=== PATIENT | female | born 1945 | race Caucasian/White ===

== ENCOUNTER → 2016-09-06 | Outpatient (CLI) | payer BC ==
[~2016-09-06] MED LIST: BND25X PO; CETI10TA10 PO; CHOL2000 PO; CLR10 PO; FLUT0.15 NAE; LRT5 PO; MAGN250T8 PO
--- NOTE | 2016-09-06 17:04 | DIAGNOSTIC IMAGING REPORT ---
CHEST 2 VIEWS ROUTINE CLINICAL HISTORY: J18.1 dyspnea COMPARISON STUDY: No previous studies for comparison. FINDINGS: Mild prominence of the bronchovascular markings. Diaphragms are smooth. No consolidative infiltrates. IMPRESSION: Bronchitis versus pulmonary vascular congestion Electronically signed by: Yeison Sharpe M.D. 09/06/2016 5:03 PM Dictated Date/Time: 09/06/2016 5:02 PM
== END | disposition home or self-care (01) ==
LOC: C.RAD1850 16:51
PROVIDERS: ATTEND Family Medicine
DX: J18.1 Lobar pneumonia, unspecified organism (principal)

== ENCOUNTER → 2016-10-15 | Outpatient (CLI) | payer BC ==
[~2016-10-15] MED LIST changes: +DIPH25CA65 PO
--- NOTE | 2016-10-15 16:46 | MAMMOGRAPHY REPORT ---
THIS REPORT HAS BEEN AMENDED. BILATERAL DIGITAL SCREENING MAMMOGRAM WITH CAD: 10/15/2016 CLINICAL HISTORY: Routine screening. Patient has no complaints. TECHNIQUE: Bilateral CC and MLO views were obtained. Current study was also evaluated with a Comput er Aided Detection (CAD) system. COMPARISON: No prior exams were available for comparison. BREAST COMPOSITION: There are scattered areas of fibroglandular density in both breasts. FINDINGS: There are minimal vascular calcifications in the breasts. A few scattered benign-appearin g punctate and coarse calcifications. No suspicious mass, architectural distortion or cluster of rincon spicious microcalcifications is seen. IMPRESSION: ACR BI-RADS CATEGORY 1: NEGATIVE There is no mammographic evidence of malignancy. Prior outside mammograms are currently being reque sted and if obtained they will be reviewed, compared to the current exam to assess for any more subt le changes, and an addendum will be made to this report. Otherwise, a 1 year screening mammogram is recommended. The patient will receive written notification of the results. Approximately 10% of breast cancers are not detected with mammography. A negative mammographic repor t should not delay biopsy if a clinically suggestive mass is present. Marika Karimi M.D. ay/:10/15/2016 15:55:41 Learning Support Aide: Evelia CAMPBELL(Jeri)(Jodi), [facility] letter sent: Normal 07/08 BI-RADS Code: ACR BI-RADS Category 1: Negative AMENDMENT: 10/16/2016 Marika Karimi M.D. Prior outside mammograms from [facility] dated 12/19/2009 and 12/21/2010 became available for review. There has been no significant interval change compared to the prior outside mammograms. There are mild bilateral vascular calcifications and benign-appearing calcifications in the right breast. Re commend follow-up in 1 year for next annual screening mammogram. Amended BI-RADS: ACR BI-RADS Category 2: Benign letter sent: Normal 2
== END | disposition home or self-care (01) ==
LOC: C.MAMM 13:23
PROVIDERS: ATTEND Family Medicine
DX: Z12.31 Encounter for screening mammogram for malignant neoplasm of breast (principal); M81.0 Age-related osteoporosis without current pathological fracture

== ENCOUNTER → 2016-10-26 | Outpatient (CLI) | payer BC ==
--- NOTE | 2016-10-26 14:41 | DIAGNOSTIC IMAGING REPORT ---
CHEST 2 VIEWS ROUTINE CLINICAL HISTORY: Pneumonia COMPARISON STUDY: 09/06/2016 FINDINGS: The heart is normal in size. There are bilateral interstitial pulmonary opacities similar to the preceding study. An element of chronic interstitial lung disease is suspected. There are no pleural effusions.[ IMPRESSION: Bilateral interstitial pulmonary opacities, similar to the preceding study. Electronically signed by: Aiden Doyle M.D. 10/26/2016 2:38 PM Dictated Date/Time: 10/26/2016 2:37 PM
== END | disposition home or self-care (01) ==
LOC: C.RAD 14:21
PROVIDERS: ATTEND Family Medicine
DX: R06.02 Shortness of breath (principal)

== ENCOUNTER → 2016-10-31 | Outpatient (CLI) | payer BC ==
--- NOTE | 2016-11-04 16:27 | PULMONARY FUNCTION TEST ---
CLINICAL DATA: A 71-year-old female with a height of 62 inches and a weight of 226 pounds referred for shortness of breath. Spirometry pre- and post-bronchodilator were performed. Prebronchodilator spirometry demonstrates mild restrictive changes. FVC was 66% of predicted. FEV1 was 72% of predicted. [id number] was 140% of predicted. There was no significant improvement after inhaled bronchodilator. IMPRESSION: Mild restrictive disease, question secondary to the patient's weight, with no significant improvement after inhaled bronchodilator. MTDD
== END | disposition home or self-care (01) ==
LOC: C.RC 13:27
PROVIDERS: ATTEND Family Medicine
DX: R06.02 Shortness of breath (principal)

== ENCOUNTER 2017-01-16 22:02 | Observation (INO) | payer BC ==
[~2017-01-16] VITALS: Ht 160 cm; Wt 104.2 kg
[~2017-01-16 22:02] MED LIST changes: -CETI10TA10 PO; -CHOL2000 PO; -DIPH25CA65 PO; -FLUT0.15 NAE; -MAGN250T8 PO
[2017-01-16] MEDS ORDERED: FLUT0.15 NAE (23:07)
[2017-01-16] MEDS ORDERED: MAGN250T8 PO (23:09)
[2017-01-16] MEDS ORDERED: CHOL2000 PO (23:09)
[2017-01-16] MEDS ORDERED: CETI10TA10 PO (23:11)
[2017-01-16] MEDS ORDERED: SODIUM CHLORIDE 0.9% 1000ML 1,000 ML IV STA (23:26)
[2017-01-16 23:27] LABS: BASO % 0.3 %; BASO ABS # 0.02 K/uL (0-0.2); COMPLETE YES; EOS % 3.2 %; HEMATOCRIT 45.5 % (37-47); IG% 0.3 %; LYMPH % 25.5 %; MEAN CELL VOLUME 92.1 fL (80-100); MEAN CORPUSCULAR HEMOGLOBIN 30.4 pg (25-34); MEAN PLATELET VOLUME 9.9 fL (7.4-10.4); MONO % 7.7 %; PLATELET COUNT 197 K/uL (130-400); RED BLOOD COUNT 4.94 M/uL (4.2-5.4); WHITE BLOOD COUNT 7.44 K/uL (4.8-10.8)
[2017-01-16 23:30] LABS: MANUAL MICROSCOPIC REQUIRED? NO; REVIEW REQ? NO; URINE APPEARANCE CLEAR (CLEAR); URINE BILIRUBIN NEG (NEG); URINE COLOR YELLOW; URINE EPITHELIAL CELL AUTO >30 /lpf (0-5); URINE NITRITE NEG (NEG); URINE SPECIFIC GRAVITY 1.015 (1.000-1.030); UROBILINOGEN NEG (NEG); ZZUR CULT IF INDIC CLEAN CATCH NO
[2017-01-16 23:45] LABS: BLOOD UREA NITROGEN 14 mg/dl (7-18); BUN/CREATININE RATIO 15.9 (10-20); CARBON DIOXIDE 31 mmol/L (21-32); CHLORIDE 106 mmol/L (98-107); CREATININE 0.88 mg/dl (0.60-1.20); GLUCOSE 115 mg/dl (70-99); POTASSIUM 4.3 mmol/L (3.5-5.1); SODIUM 142 mmol/L (136-145)
--- NOTE | 2017-01-16 23:51 | EMERGENCY ROOM VISIT NOTE ---
History Report prepared by Percy: Niki Hood Under the Supervision of: Dr. Christel Durham D.O. First contact with patient: 22:41 Chief Complaint: VERTIGO Stated Complaint: VERTIGO SX Nursing Triage Summary: see triage note History of Present Illness The patient is a 71 year old female who presents to the Emergency Room with complaints of intermittent dizziness that began this morning when she woke up. The patient states that she recently had a bilateral oopheretectomy on Friday and was discharged from [place] on Friday. She states that today she woke up and felt dizzy when she started to sit up. The patient states that she laid back down and sat up in short stages. She reports that she was dizzy, but states that it was not as bad. The patient states that after she took a nap she could again sit up slowly, but states that it took longer to overcome the dizziness. She states that she ate her lunch today downstairs in her house and states that after she took another nap upstairs. The patient states that when she woke up this time, she could not get out of bed. The patient's daughter states that they talked to her surgeon's triage nurse and after explaining her symptoms they were instructed to bring the patient to the emergency department. The patient denies ever having similar symptoms in the past. She additionally associates an intermittent headache on top of her head. The patient reports slight dizziness with change of head movement. She states that she feels chilled and her legs are shaky, but denies any fever. The patient denies any chest pain, heart palpitations, shortness of breath, nausea, vomiting, or cough. She reports normal eating and drinking since her surgery. The patient states that she had her last Oxycodone at 0100 this morning. Source of History: patient, family (daughter) Onset: this morning upon waking Position: other (global) Quality: other (dizziness) Timing: intermittent Associated Symptoms: + chills, No fevers, No cough, No chest pain, No SOB, No nausea, No vomiting Note: Associated Symptoms: legs shaky Review of Systems See HPI for pertinent positives & negatives. A total of 10 systems reviewed and were otherwise negative. Past Medical & Surgical Surgical Problems: (1) H/O bilateral oophorectomy Family History No pertinent family history stated Social History Smoking Status: Never Smoker Marital Status: Occupation Status: employed Current/Historical Medications Scheduled Cetirizine Hcl (Zyrtec), 10 MG PO DAILY Cholecalciferol (Vitamin D3), 2,000 UNITS PO DAILY Magnesium Oxide (Mg Supplement (Magnesium), 250 MG PO DAILY Scheduled PRN Fluticasone Propionate (Nasal) (Flonase Allergy Relief), 1 SPRAY KYLER DAILY PRN for ALLERGIES Allergies Uncoded Allergies: NKA (Allergy, Mild, 03/07/08) Physical Exam Vital Signs Date Time Temp Pulse Resp B/P (MAP) Pulse Ox O2 Delivery O2 Flow Rate FiO2 01/17/17 03:26 70 20 117/73 92 Room Air 01/17/17 02:16 81 01/17/17 02:09 65 140/84 81 165/94 73 159/83 01/17/17 01:01 61 21 130/84 96 Room Air 01/17/17 00:10 63 19 134/97 96 81 134/75 01/16/17 22:59 79 18 128/68 94 Room Air 01/16/17 22:24 66 01/16/17 22:15 36.5 67 18 141/71 96 Room Air Physical Exam GENERAL: alert, well appearing, well nourished, no distress, non-toxic EYE EXAM: normal conjunctiva, PERRL and EOM's grossly intact OROPHARYNX: no exudate, no erythema, lips, buccal mucosa, and tongue normal and mucous membranes are moist NECK: supple, no nuchal rigidity, no adenopathy, non-tender LUNGS: Clear to auscultation. Normal chest wall mechanics HEART: no murmurs, S1 normal and S2 normal ABDOMEN: Small incision sites noted to the abdomen with small areas of surrounding ecchymosis, that is resolving. Consistent with recent surgery, no bleeding, drainage, or dehiscence, abdomen soft, non-tender, normo-active bowel sounds, no masses, no rebound or guarding. BACK: Back is symmetrical on inspection and there is no deformity, no midline tenderness, no CVA tenderness. SKIN: no rashes and no bruising UPPER EXTREMITIES: upper extremities are grossly normal. LOWER EXTREMITIES: No pitting edema. NEURO EXAM: Normal sensorium, cranial nerves II-XII grossly intact, normal speech, no gross weakness of arms, no gross weakness of legs. No drift. Finger to nose intact. Gross sensation intact. Hints exam negative Medical Decision & Procedures ER Provider Diagnostic Interpretation: One View chest x-ray interpretation pending radiology review: No effusion, no cardiomegaly, patient rotated, bilateral increased interstitial markings, slightly more prominent compared to prior. Radiology results have been interpreted by the radiologist and reviewed by me. CT HEAD: No ICH, mass effect or edema. No evidence of acute cortical stroke. Visualized sinuses and mastoid air cells are clear. Radiologist: Lalit Abarca MD Study ready at [id number] and initial results transmitted at 0056. Laboratory Results 01/16/17 23:05 Red Blood Count 4.94, Mean Corpuscular Volume 92.1, Mean Corpuscular Hemoglobin 30.4, Mean Corpuscular Hemoglobin Concent 33.0, Mean Platelet Volume 9.9, Neutrophils (%) (Auto) 63.0, Lymphocytes (%) (Auto) 25.5, Monocytes (%) (Auto) 7.7, Eosinophils (%) (Auto) 3.2, Basophils (%) (Auto) 0.3, Neutrophils # (Auto) 4.69, Lymphocytes # (Auto) 1.90, Monocytes # (Auto) 0.57, Eosinophils # (Auto) 0.24, Basophils # (Auto) 0.02 01/16/17 23:05 Test 01/16/17 22:40 01/16/17 23:05 Urine Color YELLOW Urine Appearance CLEAR (CLEAR) Urine pH 6.0 (4.5-7.5) Urine Specific [place] 1.015 (1.000-1.030) Urine Protein NEG (NEG) Urine Glucose (UA) NEG (NEG) Urine Ketones NEG (NEG) Urine Occult Blood NEG (NEG) Urine Nitrite NEG (NEG) Urine Bilirubin NEG (NEG) Urine Urobilinogen NEG (NEG) Urine Leukocyte Esterase SMALL (NEG) Urine WBC (Auto) 5-10 /hpf (0-5) Urine RBC (Auto) 0-4 /hpf (0-4) Urine Hyaline Casts (Auto) 0 /lpf (0-5) Urine Epithelial Cells (Auto) >30 /lpf (0-5) Urine Bacteria (Auto) NEG (NEG) White Blood Count 7.44 K/uL (4.8-10.8) Red Blood Count 4.94 M/uL (4.2-5.4) Hemoglobin 15.0 g/dL (12.0-16.0) Hematocrit 45.5 % (37-47) Mean Corpuscular Volume 92.1 fL (80-100) Mean Corpuscular Hemoglobin 30.4 pg (25-34) Mean Corpuscular Hemoglobin Concent 33.0 g/dl (32-36) Platelet Count 197 K/uL (130-400) Mean Platelet Volume 9.9 fL (7.4-10.4) Neutrophils (%) (Auto) 63.0 % Lymphocytes (%) (Auto) 25.5 % Monocytes (%) (Auto) 7.7 % Eosinophils (%) (Auto) 3.2 % Basophils (%) (Auto) 0.3 % Neutrophils # (Auto) 4.69 K/uL (1.4-6.5) Lymphocytes # (Auto) 1.90 K/uL (1.2-3.4) Monocytes # (Auto) 0.57 K/uL (0.11-0.59) Eosinophils # (Auto) 0.24 K/uL (0-0.5) Basophils # (Auto) 0.02 K/uL (0-0.2) RDW Standard Deviation 42.2 fL (36.4-46.3) RDW Coefficient of Variation 12.5 % (11.5-14.5) Immature Granulocyte % (Auto) 0.3 % Immature Granulocyte # (Auto) 0.02 K/uL (0.00-0.02) Anion Gap 5.0 mmol/L (3-11) Est Creatinine Clear Calc Drug Dose 69.6 ml/min Estimated GFR () 77.7 Estimated GFR (Non- 67.0 BUN/Creatinine Ratio 15.9 (10-20) Calcium Level 9.0 mg/dl (8.5-10.1) Total Bilirubin 0.4 mg/dl (0.2-1) Aspartate Amino Transf (AST/SGOT) 15 U/L (15-37) Alanine Aminotransferase (ALT/SGPT) 23 U/L (12-78) Alkaline Phosphatase 139 U/L (45-117) Total Creatine Kinase 63 U/L (26-192) Creatine Kinase MB < 0.5 ng/ml (0.5-3.6) Creatine Kinase MB Ratio (0-3.0) Troponin I < 0.015 ng/ml (0-0.045) Pro-B-Type Natriuretic Peptide 539 pg/ml (0-900) Total Protein 7.4 gm/dl (6.4-8.2) Albumin 3.3 gm/dl (3.4-5.0) Globulin 4.1 gm/dl (2.5-4.0) Albumin/Globulin Ratio 0.8 (0.9-2) Thyroid Stimulating Hormone (TSH) 1.430 uIu/ml (0.300-4.500) Date/Time Source Procedure Growth Status 01/16/17 22:40 Urine , Clean Catch Urine Culture - Final Proteus Mirabilis Complete Laboratory results per my review. Medications Administered Medications (Trade) Dose Ordered Sig/Eloy Route Start Time Stop Time Status Last Admin Dose Admin Sodium Chloride 1,000 ml @ 999 mls/hr Q1H1M STAT IV 01/16/17 23:26 01/17/17 00:26 DC 01/17/17 00:12 999 MLS/HR Meclizine HCl (Antivert Tab) 25 mg NOW STAT PO 01/17/17 01:48 01/17/17 01:49 DC 01/17/17 02:03 25 MG Diazepam (Valium Inj) 2.5 mg NOW STAT IV 01/17/17 02:53 01/17/17 02:54 DC 01/17/17 03:23 2.5 MG Sodium Chloride 1,000 ml @ 125 mls/hr Q8H STAT IV 01/17/17 02:55 01/17/17 05:41 DC 01/17/17 03:23 125 MLS/HR ECG Indication: other (dizzy) Rate (beats per minute): 74 Rhythm: sinus rhythm Findings: other (normal intervals, normal axis, inverted T waves in lead three) ED Course 2243: The patient was evaluated in room B9. A complete history and physical exam was performed. 2326: Ordered Sodium Chloride 1000 ml @ 999 mls/hr IV. 0139: I reevaluated the patient and she is feeling better, but is still dizzy. I updated her at this time on her test results. 0148: Ordered Meclizine HCl 25 mg PO. 0225: I reevaluated the patient and she states that she is still having dizziness with change of position, but not as bad as before. 0254: Patient states now feeling worse, having increased symptoms including with turning of her head. Discussed additional medications with patient. Patient family and comfortable with her attempting to go back home given persistence of dizzy symptoms despite negative evaluation thus far. Medical Decision Differential diagnosis includes etiologies such as benign positional vertigo, dehydration, hypovolemia, anemia, tumor, infection, hypoglycemia, electrolyte abnormalities, cardiac sources, intracerebral event, toxicologic, neurologic, as well as others were entertained. Medication Reconciliation: I attest that I have personally reviewed the patient' s current medication list. Blood pressure screening: Patient was found to have an elevated blood pressure and was referred to their primary doctor for recheck and further treatment. Pt with persistent dizziness here, mostly related to change positions. Imaging and labs reassuring. UA with slightly pyuria, no symptoms, however recent berumen during procedure, Sent for culture as a precaution. Pt given gentle IVF. Doubt central cause of vertigo/dizziness. Normal non focal neuro exam. Doubt cerebellar or vascular etiology. Pt admitted due to persistent symptoms and for continued monitoring/treatment. Doubt cardiac etiology. No evidence of bacteremia/sepsis. Vs otw stable while here. Consults Time Called: 0255 Consulting Physician: Pierce Returned Call: [phone] Rueda for admission. Impression Primary Impression: Dizziness Scribe Attestation The scribe's documentation has been prepared under my direction and personally reviewed by me in its entirety. I confirm that the note above accurately reflects all work, treatment, procedures, and medical decision making performed by me. Departure Information Dispostion Still a Patient Referrals Juan Nowak M.D. (PCP) Patient Instructions My [facility]
[2017-01-16 23:56] LABS: ALB/GLOB RATIO 0.8 (0.9-2); ALKALINE PHOSPHATASE 139 U/L (45-117); ALT/SGPT 23 U/L (12-78); AST/SGOT 15 U/L (15-37)
[2017-01-17] MEDS ORDERED: MECLIZINE HCL 25 MG TAB PO STA (01:48)
[2017-01-17] MEDS ORDERED: DIAZEPAM INJ 5 MG/ML 2 ML CARP IV STA (02:53)
[2017-01-17] MEDS ORDERED: SODIUM CHLORIDE 0.9% 1000ML 1,000 ML IV STA (02:55)
--- NOTE | 2017-01-17 03:58 | History and Physical ---
History & Physical Date & Time of Service: Jan 17, 2017 at 03:57 Chief Complaint: Vertigo Sx Primary Care Physician: Juan Nowak M.D. History of Present Illness Source: patient 71-year-old female with no significant past medical history status post laparoscopic bilateral oophorectomy for dermoid cyst presented to the ER with complaints of dizziness which started this morning. The patient stated that while she was trying to get up from her bed she felt very dizzy . She had been feeling dizzy intermittently all day today and has been mostly confined to her bed. She also complained of a mild headache on the right side of her forehead. Denied any nausea or vomiting. Complains of feeling unsteady on walking and almost passed out but did not have any syncopal episodes. Denied any history of trauma, hearing loss, tinnitus, ear pain. Denied any motor weakness, numbness or tingling, blurry vision or slurring of speech. Past Medical/Surgical History Surgical Problems: (1) H/O bilateral oophorectomy Status: Resolved Family History Noncontributory Social History Smoking Status: Never Smoker Marital Status: Occupational Status: employed Allergies Uncoded Allergies: NKA (Allergy, Mild, 03/07/08) Home Medications Scheduled Cetirizine Hcl (Zyrtec), 10 MG PO DAILY Cholecalciferol (Vitamin D3), 2,000 UNITS PO DAILY Magnesium Oxide (Mg Supplement (Magnesium), 250 MG PO DAILY Scheduled PRN Fluticasone Propionate (Nasal) (Flonase Allergy Relief), 1 SPRAY KYLER DAILY PRN for ALLERGIES Review of Systems Constitutional: No fever, No chills Eyes: No worsening of vision ENT: No hearing loss Respiratory: No cough, No sputum Cardiovascular: No chest pain Abdomen: No pain, No nausea Musculoskeletal: No joint pain Genitourinary - Female: No dysuria, No urinary frequency Neurologic: + vertigo, No memory loss, No paralysis, No weakness Psychiatric: No depression symptoms Endocrine: No fatigue Hematologic / Lymphatic: No abnormal bleeding/bruising Integumentary: No rash Physical Exam Vital Signs Date Time Temp Pulse Resp B/P (MAP) Pulse Ox O2 Delivery O2 Flow Rate FiO2 01/17/17 03:26 70 20 117/73 92 Room Air 01/17/17 02:16 81 01/17/17 02:09 65 140/84 81 165/94 73 159/83 01/17/17 01:01 61 21 130/84 96 Room Air 01/17/17 00:10 63 19 134/97 96 81 134/75 01/16/17 22:59 79 18 128/68 94 Room Air 01/16/17 22:24 66 01/16/17 22:15 36.5 67 18 141/71 96 Room Air General Appearance: WD/WN, no apparent distress Eyes: normal inspection ENT: normal ENT inspection, hearing grossly normal, TMs normal Neck: supple Respiratory/Chest: lungs clear, normal breath sounds, no respiratory distress, no accessory muscle use Cardiovascular: regular rate, rhythm Abdomen/GI: normal bowel sounds, soft, + tenderness (along laparoscopic sites) , + pertinent finding (laparoscopic surgery sutures in place) Extremities/Musculoskelatal: no calf tenderness, no pedal edema Neurologic/Psych: alert, normal mood/affect, oriented x 3 Skin: normal color Diagnostics Laboratory Results Results Past 24 Hours Test 01/16/17 22:40 01/16/17 23:05 Range/Units Urine Color YELLOW Urine Appearance CLEAR CLEAR Urine pH 6.0 4.5-7.5 Urine Specific [place] 1.015 1.000-1.030 Urine Protein NEG NEG Urine Glucose (UA) NEG NEG Urine Ketones NEG NEG Urine Occult Blood NEG NEG Urine Nitrite NEG NEG Urine Bilirubin NEG NEG Urine Urobilinogen NEG NEG Urine Leukocyte Esterase SMALL NEG Urine WBC (Auto) 5-10 0-5 /hpf Urine RBC (Auto) 0-4 0-4 /hpf Urine Hyaline Casts (Auto) 0 0-5 /lpf Urine Epithelial Cells (Auto) >30 0-5 /lpf Urine Bacteria (Auto) NEG NEG White Blood Count 7.44 4.8-10.8 K/uL Red Blood Count 4.94 4.2-5.4 M/uL Hemoglobin 15.0 12.0-16.0 g/dL Hematocrit 45.5 37-47 % Mean Corpuscular Volume 92.1 80-100 fL Mean Corpuscular Hemoglobin 30.4 25-34 pg Mean Corpuscular Hemoglobin Concent 33.0 32-36 g/dl Platelet Count 197 130-400 K/uL Mean Platelet Volume 9.9 7.4-10.4 fL Neutrophils (%) (Auto) 63.0 % Lymphocytes (%) (Auto) 25.5 % Monocytes (%) (Auto) 7.7 % Eosinophils (%) (Auto) 3.2 % Basophils (%) (Auto) 0.3 % Neutrophils # (Auto) 4.69 1.4-6.5 K/uL Lymphocytes # (Auto) 1.90 1.2-3.4 K/uL Monocytes # (Auto) 0.57 0.11-0.59 K/uL Eosinophils # (Auto) 0.24 0-0.5 K/uL Basophils # (Auto) 0.02 0-0.2 K/uL RDW Standard Deviation 42.2 36.4-46.3 fL RDW Coefficient of Variation 12.5 11.5-14.5 % Immature Granulocyte % (Auto) 0.3 % Immature Granulocyte # (Auto) 0.02 0.00-0.02 K/uL Sodium Level 142 136-145 mmol/L Potassium Level 4.3 3.5-5.1 mmol/L Chloride Level 106 98-107 mmol/L Carbon Dioxide Level 31 21-32 mmol/L Anion Gap 5.0 3-11 mmol/L Blood Urea Nitrogen 14 7-18 mg/dl Creatinine 0.88 0.60-1.20 mg/dl Est Creatinine Clear Calc Drug Dose 69.6 ml/min Estimated GFR () 77.7 Estimated GFR (Non- 67.0 BUN/Creatinine Ratio 15.9 10-20 Random Glucose 115 70-99 mg/dl Calcium Level 9.0 8.5-10.1 mg/dl Total Bilirubin 0.4 0.2-1 mg/dl Aspartate Amino Transf (AST/SGOT) 15 15-37 U/L Alanine Aminotransferase (ALT/SGPT) 23 12-78 U/L Alkaline Phosphatase 139 45-117 U/L Total Creatine Kinase 63 26-192 U/L Creatine Kinase MB < 0.5 0.5-3.6 ng/ml Creatine Kinase MB Ratio 0-3.0 Troponin I < 0.015 0-0.045 ng/ml Pro-B-Type Natriuretic Peptide 539 0-900 pg/ml Total Protein 7.4 6.4-8.2 gm/dl Albumin 3.3 3.4-5.0 gm/dl Globulin 4.1 2.5-4.0 gm/dl Albumin/Globulin Ratio 0.8 0.9-2 Thyroid Stimulating Hormone (TSH) 1.430 0.300-4.500 uIu/ml Microbiology Results 01/16/17 Urine Culture, Received Pending Impression Assessment and Plan 71-year-old female with no significant past medical history status post laparoscopic bilateral oophorectomy for dermoid cyst presented to the ER with complaints of dizziness which started this morning. Dizziness - BPV vs TIA/stroke vs inner ear pathology - Head CT negative - MRI brain , US dopplers neck ordered - Continue IV fluids - Meclizine and Ativan as needed ? Pulmonary fibrosis: - Chest x-ray has a fibrotic appearance with the patient is asymptomatic. She recently had a CT chest done at [facility] but is unsure about the results. - Can obtain records in a.m. DVT prophylaxis: SCDs Full code Dispo : admitted to tele Attending Addendum: I physically seen and examined this patient, have supervised the medical residents activities, and agree with the H&P as noted above with the following exceptions: NONE The patient is awake, well-developed and adequately nourished, alert and oriented 3, normocephalic and atraumatic, lying in bed and in no acute distress. HEENT--PERRL, EOMI, mucous membranes and oropharynx dry. Neck--supple, no JVD or bruits, thyroid normal, trachea midline, no adenopathy. Heart--normal S1 and S2, no extra beats, no murmurs, rubs or gallops. Lungs--clear bilaterally with good air movement, no respiratory distress, no accessory muscle use. Abdomen--normal bowel sounds and soft, nontender and nondistended, no hernias or masses, no organomegaly. Extremities--no cyanosis, clubbing or edema. There are good distal pulses b/l. Dermatologic--normal skin turgor, normal color, warm and dry, no abnormal lymph nodes, no rash. Neurologic--cranial nerves II through XII grossly intact, motor and sensory examination normal. Rheumatologic--normal range of motion, nontender, muscles and joints. Psychiatric--normal affect. Assessment and Plan: 1. Intractable dizziness/inability to walk--differential includes TIA, acoustic neuroma, CVA, BPV. CT of the head was negative for acute event. The patient will undergo carotid Dopplers, and MRI brain combo. Place on IV fluids for relative dehydration. Meclizine and Ativan as needed for symptoms. Chest x-ray suggestive of pulmonary fibrosis, and patient reports recently having been on 3 rounds of antibiotics to treat pneumonia. She reports having had a CT of the chest done recently at [facility], and we will attempt to get that report here. She is asymptomatic at this time from a respiratory perspective as far as cough, shortness of breath, wheezing or other adventitious sounds. Level of Care Telemetry Resuscitation Status FULL RESUSCITATION VTE Prophylaxis VTE Risk Assessment Done? Y/N: Yes Risk Level: Moderate Given or contraindicated: SCD's Resident Tracking Resident Involvement: Resident Care Provided Care Provided: Adult Hospital Medicine
[2017-01-17] MEDS ORDERED: POLYETHYLENE (MIRALAX) 17 GM PACK PO PRN (04:00)
[2017-01-17] MEDS ORDERED: ALUMINUM/MAGNESIUM/SIMETH (MAALOX MAX) 30 ML UDC PO PRN (04:00)
[2017-01-17] MEDS ORDERED: ONDANSETRON INJ 2 MG/ML 2 ML VIAL IV PRN (04:00)
[2017-01-17] MEDS ORDERED: LORAZEPAM 0.5 MG TAB PO PRN (04:30)
[2017-01-17] MEDS ORDERED: MECLIZINE HCL 25 MG TAB PO PRN (04:30)
[2017-01-17] MEDS ORDERED: IV FLUIDS COMPLETED PRN (04:45)
[2017-01-17] MEDS ORDERED: SODIUM CHLORIDE 0.9% 1000ML 1,000 ML IV SCH (05:45)
[2017-01-17 05:46] VITALS: BP_SYST 138; BP_SYST 139; BP_DIAS 71; BP_DIAS 81; PULSE 62; TEMP 36.5; TEMP 36.7; O2SAT 95; O2SAT 96; Ht 160 cm; Wt 104.2 kg
--- NOTE | 2017-01-17 06:42 | DIAGNOSTIC IMAGING REPORT ---
CHEST ONE VIEW PORTABLE CLINICAL HISTORY: vertigo COMPARISON STUDY: 10/24/2016 FINDINGS: The heart is mildly enlarged. There are bilateral interstitial pulmonary opacities similar to the prior study. An element of underlying chronic interstitial lung disease is suspected. There is no acute lobar consolidation. There are no pleural effusions. There is no overt failure.[ IMPRESSION: Bilateral interstitial pulmonary opacities, similar to the prior study. The findings likely indicate underlying chronic interstitial lung disease Electronically signed by: Aiden Doyle M.D. 01/17/2017 6:41 AM Dictated Date/Time: 01/17/2017 6:40 AM
--- NOTE | 2017-01-17 07:11 | DIAGNOSTIC IMAGING REPORT ---
ULTRASOUND OF THE CAROTID ARTERIES CLINICAL HISTORY: dizziness COMPARISON STUDY: None. TECHNIQUE: Real-time, grayscale, and color Doppler sonography of the carotid arteries was performed. Imaging reviewed in the transverse and longitudinal planes. NASCET criteria was utilized for stenosis calcification. FINDINGS: There is minimal atherosclerotic plaque present . The peak systolic velocity within the right internal carotid artery is 79 cm/sec. The systolic velocity ratio of right internal to common carotid artery is 0.8. The peak systolic velocity within the left internal carotid artery is 71 cm/sec. The systolic velocity ratio left internal to common carotid artery is 1. Antegrade flow is seen in the vertebral arteries. The external carotid arteries are patent. Blood pressure in the right arm measured 145 mm/Hg. Blood pressure in the left arm measured 145 mm/Hg. There is artifact within the right internal jugular vein. While nonspecific, one cannot exclude iatrogenic air. IMPRESSION: No evidence of hemodynamically significant carotid stenosis. Electronically signed by: Aiden Doyle M.D. 01/17/2017 7:10 AM Dictated Date/Time: 01/17/2017 7:08 AM
--- NOTE | 2017-01-17 07:17 | DIAGNOSTIC IMAGING REPORT ---
HEAD WITHOUT CONTRAST (CT) HISTORY: dizziness and vertigo without reported trauma TECHNIQUE: Multiple axial CT images of the head were obtained without contrast. CT DOSE: 537.48 mGy.cm COMPARISON: None. FINDINGS: No acute intracranial hemorrhage, midline shift, mass, large territorial ischemia or abnormal extra-axial collection. The calvarium is intact. The paranasal sinuses, mastoid air cells, and middle ear cavities are clear. IMPRESSION: No acute intracranial abnormality. The above report was generated using voice recognition software. It may contain grammatical, syntax or spelling errors. Electronically signed by: Dalton Myers M.D. 01/17/2017 7:15 AM Dictated Date/Time: 01/17/2017 7:13 AM
[2017-01-17 08:23] VITALS: BP 108/75; PULSE 73; TEMP 36.9; O2SAT 94
[2017-01-17] MEDS ORDERED: CHOLECALCIFEROL 1000 INTER.UNIT TAB PO SCH (09:00)
--- NOTE | 2017-01-17 10:38 | DIAGNOSTIC IMAGING REPORT ---
MRI OF THE BRAIN WITHOUT AND WITH IV CONTRAST CLINICAL HISTORY: dizziness COMPARISON STUDY: Noncontrast head CT dated 01/17/2017 TECHNIQUE: MRI of the brain was performed from the vertex to the skull base utilizing various T1 and T2 weighted sequences. Following the IV administration of 10 mL of Gadavist contrast, additional enhanced images were obtained. FINDINGS: Sagittal T1, axial diffusion, proton density and T2 weighted axial, coronal FLAIR, and pre and post axial T1-weighted images were acquired. These were supplemented with post gadolinium coronal T1 weighted images. No intra or extra-axial mass lesions are visualized. Axial diffusion-weighted images reveal no evidence of acute or subacute infarction. There is no evidence of ventricular dilatation. Proton density T2-weighted and FLAIR images reveal no significant intraparenchymal signal abnormalities. There are no abnormal flow voids. There is no evidence of pathologic enhancement. IMPRESSION: Normal MRI of the brain for age Electronically signed by: Aiden Doyle M.D. 01/17/2017 10:37 AM Dictated Date/Time: 01/17/2017 10:34 AM
[2017-01-17] MEDS ORDERED: GADAVIST IV PRN (10:45)
--- NOTE | 2017-01-17 11:27 | Discharge Instructions ---
Discharge Instructions Date of Service Jan 17, 2017. Admission Reason for Admission: Dizziness Discharge Discharge Diagnosis / Problem: Dizziness Discharge Goals Goal(s): Decrease discomfort, Prevent Disease Progression Activity Recommendations Activity Limitations: per Instructions/Follow-up section . Instructions / Follow-Up Instructions / Follow-Up Please continue to rest a drink plenty of fluids Drink 6-8 glasses of water daily in order to stay well hydrated You will need to follow up with your PCP on Friday If you have any worsening dizziness, nausea or vomiting then please come back to the emergency department Current Hospital Diet Patient's current hospital diet: Regular Diet Discharge Diet Recommended Diet: Regular Diet Pending Studies Studies pending at discharge: no Medical Emergencies . Who to Call and When: Medical Emergencies: If at any time you feel your situation is an emergency, please call 911 immediately. . Non-Emergent Contact Non-Emergency issues call your: Primary Care Provider . . "Provider Documentation" section prepared by Rafael Crockett. . VTE Core Measure Inpt VTE Proph given/why not?: SCD's
[2017-01-17 11:51] VITALS: BP 108/75; PULSE 73; TEMP 36.9; O2SAT 94
--- NOTE | 2017-01-17 13:12 | Discharge Summary ---
Discharge Summary Date of Service Jan 17, 2017. (Rafael Crockett MD) Discharge Summary Admission Date: Jan 17, 2017 at 04:00 Discharge Date: Jan 17, 2017 Discharge Disposition: Home Principal Diagnosis: Dizziness (Rafael Crockett MD) Medication Reconciliation Continued Medications: Cetirizine Hcl (Zyrtec) 10 Mg Tab 10 MG PO DAILY, TAB Cholecalciferol (Vitamin D3) 2,000 Unit Cap 2000 UNITS PO DAILY for 90 Days, CAP 3 Refills Fluticasone Propionate (Nasal) (Flonase Allergy Relief) 50 Mcg/Act Spr 1 SPRAY KYLER DAILY PRN for ALLERGIES Magnesium Oxide (Mg Supplement (Magnesium) 250 Mg Tab 250 MG PO DAILY Discharge Exam Her dizziness has improved. She describes it as a feeling of pre syncope as soon as she goes from a lying to sitting position. Review of Systems: Constitutional: No fever, No chills Eyes: No worsening of vision, No diplopia ENT: No hearing loss, No trouble swallowing Respiratory: No cough, No dyspnea on exertion Cardiovascular: No chest pain, No claudication, No palpitations Abdomen: No pain, No nausea, No vomiting Genitourinary - Female: No dysuria Neurologic: No weakness, No vertigo, No balance problems Physical Exam: General Appearance: WD/WN, no apparent distress Neck: no JVD, no carotid bruits Respiratory/Chest: lungs clear, no respiratory distress, no accessory muscle use Cardiovascular: regular rate, rhythm, no edema, no murmur, normal peripheral pulses Abdomen / GI: non tender, soft Extremities: no calf tenderness, no pedal edema, non-tender Neurologic/Psychiatric: prototype model maker II-XII nml as tested, no motor/sensory deficits , alert, normal mood/affect, oriented x 3 (Rafael Crockett MD) Hospital Course 71-year-old female with no significant past medical history status post laparoscopic bilateral oophorectomy for dermoid cyst presented to the ER with complaints of dizziness which started this morning. The patient stated that while she was trying to get up from her bed she felt very dizzy. She had been feeling dizzy intermittently all day today and had been mostly confined to her bed. She also complained of a mild headache on the right side of her forehead. Complains of feeling unsteady on walking and almost passed out but did not have any syncopal episodes. In the ED she had a CBC, BMP and UA which were all normal. She also had a CXR which showed bilateral interstitial opacities which appear to be chronic and are being followed by her PCP. She had a Carotid US which did not show any carotid stenosis. She had a CT scan of her head which was normal and she also had an MRI which was normal. It was concluded that the likely cause of her dizziness was dehydration from a mix of being post op 1 day and due to being on narcotics which can have a vasodilatory effect. We discharged the patient on 01/17 with instructions to drink plenty of fluids and rest. She is to follow up with her PCP on Friday if her symptoms do not improve. Total Time Spent: Less than 30 minutes This includes examination of the patient, discharge planning, medication reconciliation, and communication with other providers. (Rafael Crockett MD) Resident Physician Supervision Note: I interviewed and examined the patient. Discussed with Dr. Alston and agree with findings and plan as documented in the note. Any exceptions or clarifications are listed here: None Documented By: Eddie Bhatia feeling better, w/u negative. OK w going home. all other ROS otherwise negative except for as above vitals noted nad breathing unlabored no pallor or icterus dizziness - seems to be mostly a lightheadedness - appearing likely mild dehydration and ADR from percocet. no true hypotension, no renal insufficiency. no stroke like appearance. lightheaded makes ear/vestibular pathology highly unlikely stable for home (Eddie Bhatia, D.O.) Discharge Instructions Please refer to the electronic Patient Visit Report (Discharge Instructions) for additional information. (Rafael Crockett MD) Additional Copies To Juan Nowak M.D.
--- NOTE | 2017-01-17 18:46 | Medical Student: [facility] ---
Med Student Progress Note Date of Service Jan 17, 2017. Subjective Pt evaluation today including: conversation w/ patient Mrs. Molina is a 71 year old female with a PMH significant for allergies and a b/l oophorectomy on 01/14 at [facility] who presented yesterday with dizziness. She first noticed the dizziness yesterday morning when sitting up in bed in the morning. She describes it as feeling like she was going to pass out, but not the room spinning. The feeling of dizziness subsided after about 20 minutes. She experienced the same feeling when sitting up after two naps throughout the day. Associated symptoms included right sided HUGHES, feeling chilled and her legs shaking. She didn't skip any meals yesterday. She denies fever, N/V, chest pain , SOB, tinnitus, hearing loss, weakness or blurry vision. She also denies having feelings of palpitations or diaphoresis before each episode of dizziness. She is currently on Oxycodone as post-surgical pain control and took her last dose at 0100 on 01/16. Today, she continues to feel dizzy upon sitting up, but the intensity and length have diminished. Review of Systems Constitutional: No fever, No chills Eyes: No worsening of vision ENT: No hearing loss Respiratory: No cough, No sputum, No wheezing, No shortness of breath Cardiac: No chest pain, No edema, No palpitations Abdomen: No pain, No nausea, No vomiting, No diarrhea, No constipation Female : No dysuria, No urinary frequency Neurologic: + problem reported (dizziness) Endo: No fatigue Objective Vital Signs Date Time Temp Pulse Resp B/P (MAP) Pulse Ox O2 Delivery O2 Flow Rate FiO2 01/17/17 12:00 Room Air 01/17/17 11:51 36.9 73 18 94 Room Air 01/17/17 08:23 36.9 73 18 108/75 (86) 94 Room Air 01/17/17 08:00 Room Air 01/17/17 05:46 36.7 62 20 139/81 (100) 96 Room Air 01/17/17 05:46 36.5 19 138/71 95 Room Air 01/17/17 04:15 74 19 138/71 95 01/17/17 04:01 74 19 138/71 95 Room Air 01/17/17 03:26 70 20 117/73 92 Room Air 01/17/17 02:16 81 01/17/17 02:09 65 140/84 81 165/94 73 159/83 01/17/17 01:01 61 21 130/84 96 Room Air 01/17/17 00:10 63 19 134/97 96 81 134/75 01/16/17 22:59 79 18 128/68 94 Room Air 01/16/17 22:24 66 01/16/17 22:15 36.5 67 18 141/71 96 Room Air Physical Exam General Appearance: WD/WN, no apparent distress Eyes: bilateral eyes normal inspection, bilateral eyes PERRL, bilateral eyes EOMI ENT: normal ENT inspection Neck: supple, no adenopathy, thyroid normal Respiratory/Chest: lungs clear, normal breath sounds, no respiratory distress Cardiovascular: regular rate, rhythm, no edema, no gallop, no JVD, no murmur Abdomen: normal bowel sounds, non tender, soft, no organomegaly Extremities: no pedal edema, no calf tenderness Neurologic/Psychiatric: information technology intern II-XII nml as tested, no motor/sensory deficits Skin: normal color, warm/dry, no rash Laboratory Results Last 24 Hours Test 01/16/17 22:40 01/16/17 23:05 Urine Color YELLOW Urine Appearance CLEAR Urine pH 6.0 Urine Specific [place] 1.015 Urine Protein NEG Urine Glucose (UA) NEG Urine Ketones NEG Urine Occult Blood NEG Urine Nitrite NEG Urine Bilirubin NEG Urine Urobilinogen NEG Urine Leukocyte Esterase SMALL Urine WBC (Auto) 5-10 /hpf Urine RBC (Auto) 0-4 /hpf Urine Hyaline Casts (Auto) 0 /lpf Urine Epithelial Cells (Auto) >30 /lpf Urine Bacteria (Auto) NEG White Blood Count 7.44 K/uL Red Blood Count 4.94 M/uL Hemoglobin 15.0 g/dL Hematocrit 45.5 % Mean Corpuscular Volume 92.1 fL Mean Corpuscular Hemoglobin 30.4 pg Mean Corpuscular Hemoglobin Concent 33.0 g/dl Platelet Count 197 K/uL Mean Platelet Volume 9.9 fL Neutrophils (%) (Auto) 63.0 % Lymphocytes (%) (Auto) 25.5 % Monocytes (%) (Auto) 7.7 % Eosinophils (%) (Auto) 3.2 % Basophils (%) (Auto) 0.3 % Neutrophils # (Auto) 4.69 K/uL Lymphocytes # (Auto) 1.90 K/uL Monocytes # (Auto) 0.57 K/uL Eosinophils # (Auto) 0.24 K/uL Basophils # (Auto) 0.02 K/uL RDW Standard Deviation 42.2 fL RDW Coefficient of Variation 12.5 % Immature Granulocyte % (Auto) 0.3 % Immature Granulocyte # (Auto) 0.02 K/uL Sodium Level 142 mmol/L Potassium Level 4.3 mmol/L Chloride Level 106 mmol/L Carbon Dioxide Level 31 mmol/L Anion Gap 5.0 mmol/L Blood Urea Nitrogen 14 mg/dl Creatinine 0.88 mg/dl Est Creatinine Clear Calc Drug Dose 69.6 ml/min Estimated GFR () 77.7 Estimated GFR (Non- 67.0 BUN/Creatinine Ratio 15.9 Random Glucose 115 mg/dl Calcium Level 9.0 mg/dl Total Bilirubin 0.4 mg/dl Aspartate Amino Transf (AST/SGOT) 15 U/L Alanine Aminotransferase (ALT/SGPT) 23 U/L Alkaline Phosphatase 139 U/L Total Creatine Kinase 63 U/L Creatine Kinase MB < 0.5 ng/ml Creatine Kinase MB Ratio Troponin I < 0.015 ng/ml Pro-B-Type Natriuretic Peptide 539 pg/ml Total Protein 7.4 gm/dl Albumin 3.3 gm/dl Globulin 4.1 gm/dl Albumin/Globulin Ratio 0.8 Thyroid Stimulating Hormone (TSH) 1.430 uIu/ml Assessment and Plan Assessment and Plan: Assessment: Mrs. Molina is a 71 year old female with a PMH significant for allergies and a b/l oophorectomy on 01/14 at [facility] who presented yesterday with dizziness. On arrival to the ER, her vitals were WNLs. CXR showed a chronic interstitial lung disease which is consistent with a chest CT she had recently in [place]. Head CT was negative, carotid artery US was negative and EKG was normal. Troponin was negative. UA was not suggestive of an infection. TIA and stroke were ruled out because they often do not present with dizziness and head CT was negative. Vertigo was also considered, but the patient did not experience spinning of the room. It is likely the patient's symptoms can be attributed to dehydration coupled with her recent use of Percocet, which has vasodilatory nature and can precipitate dehydration. Plan Dizziness - likely related to dehydration & recent use of Percocet -d/c meclizine & Ativan -encourage 60-70 ounces of H2O intake per day at home -educated patient to be aware that Percocet may continue to cause dizziness Pulmonary Fibrosis -CXR showed chronic interstitial lung disease consistent with finding on chest CT in [place] -patient follows with PCP regularly and PCP is aware of pulmonary fibrosis
== END 2017-01-17 14:13 | disposition home or self-care (01) ==
LOC: EDBD 22:02 → C.EDB 22:04 → C.MED 01-17 04:00 → ENRESERV 01-17 04:05
PROVIDERS: ADMIT Family Medicine; ATTEND Family Medicine
DX: R42 Dizziness and giddiness (principal); Z79.899 Other long term (current) drug therapy

== ENCOUNTER → 2017-05-21 | Day surgery (SDC) | payer BC ==
[2017-05-19 13:06] VITALS: Ht 157.5 cm; Wt 104.1 kg
[~2017-05-21] VITALS: Ht 157.5 cm; Wt 104.1 kg
[~2017-05-21] MED LIST changes: +500ML BSS 0.3ML EPI 1:1000PF IRRIG ONE; +ACETAMINOPHEN 325 MG TAB PO PRN; +AMVISC PLUS 0.8ML SYRINGE INT OCU ONE; +ATROPINE SULFATE 0.1 MG/ML 5ML SYR IV PRN; -BND25X PO; +BSS FLUSH ONE; +CHOL2000 PO; -CLR10 PO; +DIPH25CA65 PO; +ENDOCOAT 0.85ML SYRINGE INT OCU ONE; +EpHEDrine SULFATE INJ 50 MG/ML AMP IV PRN; +EpINEphrine INJ 1MG/ML AMP 1 MG/ML AMP ONE; +LACTATED RINGER'S 1000ML 500 ML IV SCH; +LIDOCAINE 4% OP SOLN DROP CHARGE ONE; +LIDOCAINE 4% OP SOLN DROP CHARGE OPL SCH; +LIDOCAINE HCL 1% MPF 2 ML VIAL ONE; -LRT5 PO; +MAGN250T8 PO; +MIDAZOLAM HCL 1 MG/ML 2ML VIAL ONE; +MIX: 4ML BSS 1ML EPI 1:1000 PF TOP ONE; +MOXIFLOXACIN OPH SOLN PER DROP CHARGE ONE; +POVIDONE-IODINE OP SOLN 30 ML BTL ONE; +PROPARACAINE 0.5% OP SOLN PER DROP CHARGE OPL SCH; +TOBRAMYCIN/DEXAMETHASONE OPH OINT PER APPLN CHARGE ONE
--- NOTE | 2017-05-21 10:20 | History & Physical Bridge - [place] ---
H&P Re-Evaluation Bridge Note: I have examined the patient, reviewed the History & Physical and in the interval since the performance of the History & Physical I have noted the following changes of clinical significance: No changes noted
[2017-05-21] MEDS: PHENYLEPHRINE HCL 2.5% OP SOLN PER DROP CHARGE OPL SCH ×3 (10:24→10:33)
[2017-05-21] MEDS: TROPICAMIDE 1% OP SOLN PER DROP CHARGE OPL SCH ×3 (10:25→10:34)
[2017-05-21] MEDS: CYCLOPENTOLATE HCL 1% OP SOLN PER DROP CHARGE OPL SCH ×3 (10:26→10:35)
[2017-05-21] MEDS: MOXIFLOXACIN OPH SOLN PER DROP CHARGE OPL SCH ×3 (10:27→10:37)
--- NOTE | 2017-05-21 11:24 | [facility] Post Operative Brief Note ---
Immediate Operative Summary Operative Date May 21, 2017. Pre-Operative Diagnosis Cataract Left Eye Post-Operative Diagnosis Same Procedure(s) Performed Left Cataract Phacoemulsification With Intraocular Lens Implant Surgeon Dr. Shaikh Crime Scene Photographer Surgeon(s) None Estimated Blood Loss 0 Findings left cataract Specimens None Complication(s) None Disposition
[2017-05-21 11:25] VITALS: TEMP 36.1
--- NOTE | 2017-05-21 11:25 | [facility] Operative Report ---
Operative Report Date of Service May 21, 2017. Operative Report DATE OF OPERATION: 05/21/17 PREOPERATIVE DIAGNOSIS: Senile nuclear cataract, left eye POSTOPERATIVE DIAGNOSIS: Senile nuclear cataract, left eye PROCEDURE PERFORMED: Phacoemulsification with intraocular lens implantation, left eye SURGEON: Dr. Shant Shaikh ANESTHESIA: Topical with 1% intracameral lidocaine and monitored anesthesia care COMPLICATIONS: None DESCRIPTION OF PROCEDURE: After positively identifying the patient both verbally and by wristband in the preoperative area, the left eye was marked as the operative eye. The patient was then brought back to the operating room by the anesthesia and nursing staff where they were given a drop of Lidocaine and betadine into the operative eye. They were then sterilely prepped and draped in the standard fashion typical for ophthalmic surgery. Steri-strips were placed along the upper eyelids to keep the lashes back, and a lid speculum was placed into the operative eye. At this point, a documented time out was performed with members of the ophthalmology, nursing, and anesthesia staffs all agreeing upon the correct patient, correct location for surgery, correct procedure, and correct type and power of intraocular lens to be implanted. The microscope was then swung into position. First, a paracentesis wound was made using a sideport blade. Then, in sequence, 1% preservative-free lidocaine followed by Endocoat viscoelastic was injected into the anterior chamber. Next , the main incision was made with a keratome blade in triplanar fashion. A sharp cystotome was introduced into the eye and used to create a tear in the anterior capsule, which was directed into a continuous curvilinear capsulorrhexis using Utrata forceps. Hydrodissection was then performed with BSS on a flat-tip cannula. Next, the phacoemulsification handpiece was introduced into the eye and used to remove the nucleus in a [id number] fashion. This was done without complication and then the irrigation-aspiration handpiece was introduced into the eye and used to remove all remaining cortical and epinuclear material. Amvisc was then injected into the anterior chamber as well as into the capsular bag and using the lens injector system, an MX60 20.5 D lens, serial number [id number], and expiration date 12/2019 was injected into the capsular bag and rotated into the correct position. Next, the irrigation- aspiration handpiece was used to remove all remaining Amvisc. BSS was used to hydrate the main wound, and then BSS was injected into the paracentesis site to reach physiologic pressure and then the main wound was checked and found to be watertight. The patient was given drops of Vigamox and Tobradex ointment into the operative eye, and then the surrounding area was cleaned and dried. A clear plastic shield was placed over the eye and the patient was then sat up and taken from the operating room by the anesthesia staff having tolerated the procedure well and suffering no complications. DISPOSITION: The patient was returned to the recovery room in stable condition. I attest to the content of the Intraoperative Record and any orders documented therein. Any exceptions are noted below.
--- NOTE | 2017-05-21 11:26 | Discharge Instructions-SurgCtr ---
Discharge Instructions Date of Service May 21, 2017. Visit Reason for Visit: Cataract Left Eye Discharge Discharge Diagnosis / Problem: left cataract Discharge Goals Goal(s): Decrease discomfort, Improve function Activity Recommendations Activity Limitations: as noted below Anesthesia . Post Anesthesia Instructions: If you have had General Anesthesia or IV Sedation: * Do not drive today. * Resume driving when surgeon permits. * Do not make important decisions or sign legal documents today. * Call surgeon for: 1. Temperature elevations greater than 101 degrees F. 2. Uncontrollable pain. 3. Excessive bleeding. 4. Persistent nausea and vomiting. 5. Medication intolerance (nausea, vomiting or rash). * For nausea and vomiting use only clear liquids such as: tea, soda, bouillon until nausea subsides, then gradually increase diet as tolerated. * If you have any concerns or questions, call your surgeon's office. If physician is unavailable and it is an emergency, call 911 or go to the nearest emergency room. . Instructions / Follow-Up Instructions / Follow-Up ACTIVITY RECOMMENDATIONS: * Light activities. * You may walk outside, read, watch television. * You may notice redness on the white part of the eye and some blurry vision - this is normal. MEDICATIONS: Resume previous medications unless instructed otherwise by your surgeon. Start all eye drops at 1:30 pm today: * Eye drops (today): Prednisone - one drop in operative eye every 2 hours while awake Ofloxacin - one drop in operative eye every 2 hours while awake Bromfenac - one drop in operative eye daily SPECIAL CARE INSTRUCTIONS: * Tape plastic shield over eye to sleep at night. Call your doctor at with any concerns or problems. FOLLOW UP VISIT: Follow-up with Dr Shaikh at [facility] as scheduled. Diet Recommendations Home Diet: no limitations Procedures Procedures Performed: Left Cataract Phacoemulsification With Intraocular Lens Implant Pending Studies Studies pending at discharge: no Medical Emergencies . Who to Call and When: Medical Emergencies: If at any time you feel your situation is an emergency, please call 911 immediately. . Non-Emergent Contact Non-Emergency issues call your: Surgeon . . "Provider Documentation" section prepared by Shant Shaikh. .
--- NOTE | 2017-05-21 11:37 | Anesthesia Progress Nt - [facility] ---
Anesthesia Post Op Note Date & Time May 21, 2017 at 11:37 Vital Signs Pain Intensity: 0 Vital Signs Past 12 Hours Date Time Temp Pulse Resp B/P (MAP) Pulse Ox O2 Delivery O2 Flow Rate FiO2 05/21/17 11:25 36.1 57 14 144/74 (97) 98 Room Air 05/21/17 10:15 36.2 79 18 144/81 (102) 97 Room Air Notes Mental Status: alert / awake / arousable, participated in evaluation Pt Amnestic to Procedure: Yes Nausea / Vomiting: adequately controlled Pain: adequately controlled Airway Patency, RR, SpO2: stable & adequate BP & HR: stable & adequate Hydration State: stable & adequate Anesthetic Complications: no major complications apparent
[2017-05-21 11:48] VITALS: BP 148/73; PULSE 57; O2SAT 99
== END | disposition home or self-care (01) ==
LOC: X.SURG 10:01
PROVIDERS: ATTEND Ophthalmology
DX: H25.12 Age-related nuclear cataract, left eye (principal)

== ENCOUNTER 2019-08-16 20:09 | Observation (INO) ==
[2019-08-16] MEDS ORDERED: ALBUT/IPRATROP 3MG/0.5MG NEB 3 ML VIAL NEB ONE (20:39)
[2019-08-16] MEDS ORDERED: ACETAMINOPHEN 1,000 MG/100 ML VIAL IV STA (20:40)
[2019-08-16] MEDS ORDERED: SODIUM CHLORIDE 0.9% 500 ML IV SCH (20:45)
--- NOTE | 2019-08-16 20:57 | XRay Report ---
XR chest 1V portable HISTORY: 74 years-old Female Chest Pain acute atypical chest pain COMPARISON: Chest radiographs 05/13/2019, radiation therapy CT 03/26/2018 TECHNIQUE: Portable AP view of the chest FINDINGS: Cardiac silhouette is mildly enlarged, unchanged. Chronic interstitial lung disease redemonstrated. T here is no pneumothorax or pleural effusion. There is slightly progressed interstitial coarsening of the bilateral lungs. Degenerative changes of the shoulders and spine. IMPRESSION: Chronic interstitial lung disease with mildly progressed interstitial coarsening from the prior study dated 05/13/2019. Findings may reflect progressive fibrosis with pulmonary edema or atypi indy pneumonitis also within the differential. ACT 112: Negative or not required by law. The above report was generated using voice recognition software. It may contain grammatical, syntax o r spelling errors. Electronically signed by: Dalton Myers M.D. 08/16/2019 8:56 PM
[2019-08-16 21:16] LABS: Basophils # (auto) 0.01 K/uL (0-0.2); Basophils % (auto) 0.1 %; Hematocrit (blood only) 40.9 % (37-47); Hemoglobin 13.6 g/dL (12.0-16.0); Immature Granulocytes # (auto) 0.02 K/uL (0.00-0.02); Immature Granulocytes % (auto) 0.2 %; Lymphocytes # (auto) 1.05 K/uL (1.2-3.4); Lymphocytes % (auto) 10.5 %; Mean Corpuscular Hgb Conc 33.3 g/dL (32-36); Mean Corpuscular Volume 90.3 fL (80-100); Mean Platelet Volume 9.9 fL (7.4-10.4); Monocytes # (auto) 1.13 K/uL (0.11-0.59); Monocytes % (auto) 11.3 %; Neutrophils # (auto) 7.81 K/uL (1.4-6.5); Neutrophils % (auto) 77.9 %; Platelet Count 141 K/uL (130-400); RDW Coefficient of Variation 12.3 % (11.5-14.5); RDW Standard Deviation 40.6 fL (36.4-46.3); Red Blood Count 4.53 M/uL (4.2-5.4); White Blood Count 10.02 K/uL (4.8-10.8)
[2019-08-16 21:27] LABS: INR 1.2 (0.9-1.1); Partial Thromboplastin Ratio 1.2; Partial Thromboplastin Time 32.9 Seconds (21.0-31.0); Prothrombin Time 12.5 Seconds (9.0-12.0)
[2019-08-16 21:35] LABS: Alanine Aminotransferase 17 U/L (12-78); Albumin Level 2.9 gm/dl (3.4-5.0); Aspartate Aminotransferase 22 U/L (15-37); BUN Creatinine Ratio 13.2 (10-20); Blood Urea Nitrogen 12 mg/dl (7-18); Calcium 8.8 mg/dl (8.5-10.1); Carbon Dioxide 25 mmol/L (21-32); Chloride 101 mmol/L (98-107); Est GFR (African American) 76.1; Est GFR (Non-African American) 65.6; Glucose 168 mg/dl (70-99); Lipase 50 U/L (73-393); Potassium 3.7 mmol/L (3.5-5.1); Sodium 133 mmol/L (136-145)
[2019-08-16 21:40] LABS: Albumin Globulin Ratio 0.7 (0.9-2); Alkaline Phosphatase 140 U/L (45-117); Creatine Kinase 146 U/L (26-192); Creatine Kinase MB < 1.0 ng/ml (0.5-3.6); Globulin 4.4 gm/dl (2.5-4.0); Total Protein 7.3 gm/dl (6.4-8.2); Troponin I < 0.015 ng/ml (0-0.045)
[2019-08-16 21:58] LABS: Influenza A virus by PCR Neg for Influ A (Neg); Influenza B virus by PCR Neg for Influ B (Neg)
[2019-08-16] MEDS ORDERED: methylPREDNISolone 125 MG/2 ML VIAL IV STA (23:01)
[2019-08-16] MEDS ORDERED: MAGNESIUM SULFATE / D5W 1 GM/100 ML BAG IV ONE (23:01)
[2019-08-16] MEDS ORDERED: PIPERACILLIN/TAZOBACTAM 4.5 GM/120 ML BAG IV ONE (23:02)
[2019-08-16] MEDS ORDERED: PIPERACILL/TAZOBAC CONSULT ACTIVE PRN (23:02)
[2019-08-16] MEDS ORDERED: LEVOFLOXACIN/D5W 750 MG/150 ML BAG IV STA (23:02)
[2019-08-17] MEDS ORDERED: PIPERACILL/TAZOBAC CONSULT ACTIVE PRN (00:32)
[2019-08-17] MEDS ORDERED: ACETAMINOPHEN 325 MG TAB PO PRN (00:32)
[2019-08-17] MEDS ORDERED: ALBUT/IPRATROP 3MG/0.5MG NEB 3 ML VIAL NEB PRN (00:32)
[2019-08-17] MEDS ORDERED: ONDANSETRON INJ 2 MG/ML 2 ML VIAL IV PRN (00:32)
--- NOTE | 2019-08-17 00:49 | History & Physical Report ---
Date of Service This is late entry after midnight for admission time of 08/16/2019 at 23:25. August 17, 2019 Assessment & Plan (1) Pneumonia: OBS tele IV Levaquin and IV Zosyn Pulmonology consult CT chest ordered to better categorize if there is pneumonia in addition to chronic pneumonitis or a worsening of her known pneumonitis. Continue supplemental oxygen at 2L nc as she has been maintaining oxygenation. DVT prophylaxis = SCDs and Lovenox. (2) Lung disease, interstitial: continue nintedanib (3) UIP (usual interstitial pneumonitis): (4) COPD exacerbation: Solu Medrol 40mg IV Q 6 Duonebs prn. History of Present Illness 74 y/o female presented to the ED with complaints of worsening SOB, non- productive cough, and chills without documented fever. She chronically uses oxygen at 2L nc due to interstitial lung disease. No chest pain, N/V/D, headache or body aches. She has felt weak. Primary Care Provider: Nii Knox MD Allergies Allergy/AdvReac Type Severity Reaction Status Date / Time No Known Allergies Allergy Verified 08/16/19 22:19 Home Medications Home Medications Medication Instructions Recorded Confirmed Type cholecalciferol (vitamin D3) 50 2,000 units PO QPM 03/16/18 08/16/19 History mcg (2,000 unit) capsule letrozole 2.5 mg tablet 2.5 mg PO DAILY 05/08/18 08/16/19 History ipratropium 0.5 mg-albuterol 3 mg 3 ml INH QID PRN 11/24/18 08/16/19 History (2.5 mg base)/3 mL nebulization soln vitamins A,C,E-tirh-aesokb 1 cap PO BID 03/15/19 08/16/19 History furosemide 20 mg tablet 20 mg PO 3XWK tab 07/26/19 08/16/19 History nintedanib 150 mg capsule 150 mg PO Q12H #60 cap 08/05/19 08/16/19 Rx potassium chloride 20 mEq oral 30 meq PO 3XWK ea 08/05/19 08/16/19 History packet albuterol sulfate [Ventolin HFA] 2 puffs INH Q6H PRN 08/16/19 08/16/19 History meclizine 12.5 mg PO TID PRN 08/16/19 08/16/19 History Past Med/Surg History Medical History Chronic cough (Acute) Chronic obstructive pulmonary disease, unspecified (Acute) Chronic sinusitis (Acute) Hearing deficit History of breast cancer RADIATION Interstitial lung disease Invasive ductal carcinoma of breast (Chronic) Lichen simplex chronicus (Acute) Nocturnal oxygen desaturation O2 2L HS Obesity On home oxygen therapy 2 LPM HS Sensorineural hearing loss (SNHL) of both ears (Acute) UIP (usual interstitial pneumonitis) (Chronic) Surgical History History of cataract surgery History of cholecystectomy History of surgery DERMOID CYST EXCSION History of tonsillectomy and adenoidectomy Status post left breast lumpectomy LEFT PARTIAL BREAST MASTECTOMY WITH LNB= 12/31/17= LMA#4 AT [facility] Family History Mother Family history of diabetes mellitus Sister Family history of diabetes mellitus Family/Other Family history of diabetes mellitus CHILDREN Social History Preferred Language: Estonian Communication Ability: Effective Visual Impairment: No Limitations Hearing Ability: Normal Nurse'S Companion Required: No Beliefs That Will Affect Care: None marital status: Current Living Situation: Alone current occupational status: employed Other Information That Helps Us Care for You: No Feels Safe at Home: Yes Smoking Status: Never smoker Second Hand Exposure: Yes ( A CHILD) ; Hx Alcohol Use: No Hx Substance Use: No Dental Care, Regularly: Yes Physical Activity Frequency: Does not Exercise Review of Systems Review of Systems: All systems reviewed & are unremarkable except as noted in HPI & below Physical Exam Physical Exam: General- adult female, NAD Head- atraumatic Eyes- PERRL, EOMI, anicteric ENT- oropharynx clear Neck- supple, no JVD, no adenopathy, no thyromegaly. Lungs- Inspiratory and expiratory wheezes with dry crackles at the bases. Heart- regular rhythm; no murmur, no gallop, no rub appreciated Abdomen- normal bowel sounds, soft, nontender. Extremities- no pretibial edema, no calf tenderness; peripheral pulses intact Neuro- alert, oriented x 3; PERRL, EOMI; immigration associate II-XII grossly intact, non-focal. Skin- warm & dry Results & Data Vital Signs (Past 12 Hours) Vital Signs Temp Pulse Pulse Resp BP Pulse Ox 08/17/19 00:03 92 H 18 127/76 98 08/16/19 22:30 108 H 21 146/75 H 96 08/16/19 22:00 101 H 25 H 133/74 98 08/16/19 21:30 94 H 26 H 142/76 H 98 08/16/19 21:13 92 H 28 H 134/81 98 08/16/19 20:50 93 H 18 98 08/16/19 20:16 37.5 C 85 18 123/75 98 Laboratory Results Laboratory Results WBC 10.02 K/uL (4.8-10.8) 08/16/19 21:00 RBC 4.53 M/uL (4.2-5.4) 08/16/19 21:00 Hgb 13.6 g/dL (12.0-16.0) 08/16/19 21:00 Hct 40.9 % (37-47) 08/16/19 21:00 MCV 90.3 fL (80-100) 08/16/19 21:00 MCH 30.0 pg (25-34) 08/16/19 21:00 MCHC 33.3 g/dL (32-36) 08/16/19 21:00 RDW Std Deviation 40.6 fL (36.4-46.3) 08/16/19 21:00 RDW Coeff of Christian 12.3 % (11.5-14.5) 08/16/19 21:00 Plt Count 141 K/uL (130-400) 08/16/19 21:00 MPV 9.9 fL (7.4-10.4) 08/16/19 21:00 Immature Gran % (Auto) 0.2 % 08/16/19 21:00 Neut % (Auto) 77.9 % 08/16/19 21:00 Lymph % (Auto) 10.5 % 08/16/19 21:00 [place] % (Auto) 11.3 % 08/16/19 21:00 Eos % (Auto) 0.0 % 08/16/19 21:00 Baso % (Auto) 0.1 % 08/16/19 21:00 Immature Gran # (Auto) 0.02 K/uL (0.00-0.02) 08/16/19 21:00 Neut # (Auto) 7.81 K/uL (1.4-6.5) H 08/16/19 21:00 Lymph # (Auto) 1.05 K/uL (1.2-3.4) L 08/16/19 21:00 [place] # (Auto) 1.13 K/uL (0.11-0.59) H 08/16/19 21:00 Eos # (Auto) 0.00 K/uL (0-0.5) 08/16/19 21:00 Baso # (Auto) 0.01 K/uL (0-0.2) 08/16/19 21:00 PT 12.5 Seconds (9.0-12.0) H 08/16/19 20:11 INR 1.2 (0.9-1.1) H 08/16/19 20:11 APTT 32.9 Seconds (21.0-31.0) H 08/16/19 20:11 PTT Ratio 1.2 08/16/19 20:11 Sodium 133 mmol/L (136-145) L 08/16/19 21:00 Potassium 3.7 mmol/L (3.5-5.1) 08/16/19 21:00 Chloride 101 mmol/L (98-107) 08/16/19 21:00 Carbon Dioxide 25 mmol/L (21-32) 08/16/19 21:00 Anion Gap 7.0 (3-11) 08/16/19 21:00 BUN 12 mg/dl (7-18) 08/16/19 21:00 Creatinine 0.88 mg/dl (0.6-1.2) 08/16/19 21:00 Est Cr Clr Drug Dosing Not Reportable 08/16/19 21:00 Est GFR ( Amer) 76.1 08/16/19 21:00 Est GFR (Non-Af Amer) 65.6 08/16/19 21:00 BUN/Creatinine Ratio 13.2 (10-20) 08/16/19 21:00 Glucose 168 mg/dl (70-99) H 08/16/19 21:00 Calcium 8.8 mg/dl (8.5-10.1) 08/16/19 21:00 Total Bilirubin 1.0 mg/dl (0.2-1) 08/16/19 21:00 AST 22 U/L (15-37) 08/16/19 21:00 ALT 17 U/L (12-78) 08/16/19 21:00 Alkaline Phosphatase 140 U/L (45-117) H 08/16/19 21:00 Total Creatine Kinase 146 U/L (26-192) 08/16/19 21:00 CK-MB (CK-2) < 1.0 ng/ml (0.5-3.6) 08/16/19 21:00 CK/CKMB % Calc TNP 08/16/19 21:00 Troponin I < 0.015 ng/ml (0-0.045) 08/16/19 21:00 Total Protein 7.3 gm/dl (6.4-8.2) 08/16/19 21:00 Albumin 2.9 gm/dl (3.4-5.0) L 08/16/19 21:00 Globulin 4.4 gm/dl (2.5-4.0) H 08/16/19 21:00 Albumin/Globulin Ratio 0.7 (0.9-2) L 08/16/19 21:00 Lipase 50 U/L (73-393) L 08/16/19 21:00 Influenza Type A (PCR) Neg for Influ A (Neg) 08/16/19 21:00 Influenza Type B (PCR) Neg for Influ B (Neg) 08/16/19 21:00 Diagnostic Findings [facility], [place] [phone] XRay Report Patient: REBECCA GIBBS Date: 08/16/19 MR#: [id number]: [address] Acct ID:[id number]: Date: 1945[facility] Zip: [place] [address] Age: 74Location: ED Sex: F Room/Bed: Att Phy:Diagnosis: FLU LIKE SX, LUNG DISORDER, CAN'T BREATHE Courtney Phy: Nii Knox, III, MDService Date: 08/16/19 Fam Phy: Harvey Swift MDInterpreting Phy: Alex Myers Admit Phy: Ordering Phy: Rosalio Alcocer MD cc: ~ XR chest 1V portable HISTORY: 74 years-old Female Chest Pain acute atypical chest pain COMPARISON: Chest radiographs 05/13/2019, radiation therapy CT 03/26/2018 TECHNIQUE: Portable AP view of the chest FINDINGS: Cardiac silhouette is mildly enlarged, unchanged. Chronic interstitial lung disease redemonstrated. There is no pneumothorax or pleural effusion. There is slightly progressed interstitial coarsening of the bilateral lungs. Degenerative changes of the shoulders and spine. IMPRESSION: Chronic interstitial lung disease with mildly progressed interstitial coarsening from the prior study dated 05/13/2019. Findings may reflect progressive fibrosis with pulmonary edema or atypical pneumonitis also within the differential. ACT 112: Negative or not required by law. The above report was generated using voice recognition software. It may contain grammatical, syntax or spelling errors. Electronically signed by: Dalton Myers M.D. 08/16/2019 8:56 PM Dictated: 08/16/192053 Transcribed: 08/16/192053 Code Status & VTE Plan VTE Prophylaxis Plan VTE Prophylaxis will be ordered: Yes PG Care Time/CCT Total # of Minutes Spent Total Time Spent: 55 Total Time Spent with Patient: Total time spent is greater than 50% in coordination of care (as documented) at patient's floor/unit and/or counseling patient: Coding Level of Care Code 67399 OBS Care - Level 3 Diagnoses Pneumonia J18.9 Lung disease, interstitial J84.9 UIP (usual interstitial pneumonitis) J84.112 COPD exacerbation J44.1
[2019-08-17] MEDS ORDERED: PATIENT'S HEIGHT AND/OR WEIGHT NEEDED SCH (01:00)
--- NOTE | 2019-08-17 01:46 | Emergency Department Note ---
Entered by Jovanna Cadet acting as a scribe for History of Present Illness General Chief complaint: Respiratory Problems Stated complaint: FLU LIKE SX, LUNG DISORDER, CAN'T BREATHE Time Seen by Provider: 08/16/19 20:26 Source: patient Mode of arrival: wheelchair Limitations: no limitations History of Present Illness Onset (ago): day(s) 5 Location: chest Radiation: non-radiation Pain Consistency: + constant Maximum Pain Intensity: 0 Relieved By: + other (Oxygen) Exacerbated By: + movement Associated symptoms: + cough, + fever/chills (+chills) and + other (-abdominal pain) Treatments prior to arrival: other (2L NC) The patient is a 74 year old female who presents to the ED with complaints of persistent respiratory problems for the past 5 days. She is normally on 2L NC for a history of COPD. Any exertion worsens her breathing. She also complains of a cough and the chills. She is unsure if she has been febrile. She last had Motrin at 1100 today. She denies any abdominal pain. She does have breathing treatments at home that she last used yesterday. She did receive a flu shot this year. Home Medications Home Medications Medication Instructions Recorded Confirmed Type cholecalciferol (vitamin D3) 50 2,000 units PO QPM 03/16/18 08/16/19 History mcg (2,000 unit) capsule letrozole 2.5 mg tablet 2.5 mg PO DAILY 05/08/18 08/16/19 History ipratropium 0.5 mg-albuterol 3 mg 3 ml INH QID PRN 11/24/18 08/16/19 History (2.5 mg base)/3 mL nebulization soln vitamins A,C,P-flbc-rcqjie 1 cap PO BID 03/15/19 08/16/19 History furosemide 20 mg tablet 20 mg PO 3XWK tab 07/26/19 08/16/19 History nintedanib 150 mg capsule 150 mg PO Q12H #60 cap 08/05/19 08/16/19 Rx potassium chloride 20 mEq oral 30 meq PO 3XWK ea 08/05/19 08/16/19 History packet albuterol sulfate [Ventolin HFA] 2 puffs INH Q6H PRN 08/16/19 08/16/19 History meclizine 12.5 mg PO TID PRN 08/16/19 08/16/19 History Allergies Allergy/AdvReac Type Severity Reaction Status Date / Time No Known Allergies Allergy Verified 08/16/19 22:19 Past Med/Surg History Medical History Chronic cough (Acute) Chronic obstructive pulmonary disease, unspecified (Acute) Chronic sinusitis (Acute) Hearing deficit History of breast cancer RADIATION Interstitial lung disease Invasive ductal carcinoma of breast (Chronic) Lichen simplex chronicus (Acute) Nocturnal oxygen desaturation O2 2L HS Obesity On home oxygen therapy 2 LPM HS Sensorineural hearing loss (SNHL) of both ears (Acute) UIP (usual interstitial pneumonitis) (Chronic) Surgical History History of cataract surgery History of cholecystectomy History of surgery DERMOID CYST EXCSION History of tonsillectomy and adenoidectomy Status post left breast lumpectomy LEFT PARTIAL BREAST MASTECTOMY WITH LNB= 12/31/17= LMA#4 AT [facility] Family History Mother Family history of diabetes mellitus Sister Family history of diabetes mellitus Family/Other Family history of diabetes mellitus CHILDREN Social History Preferred Language: Khmer Communication Ability: Effective Visual Impairment: No Limitations Hearing Ability: Normal Material Handler Required: No Beliefs That Will Affect Care: None marital status: Current Living Situation: Alone current occupational status: employed Other Information That Helps Us Care for You: No Feels Safe at Home: Yes Smoking Status: Never smoker Second Hand Exposure: Yes ( A CHILD) ; Hx Alcohol Use: No Hx Substance Use: No Dental Care, Regularly: Yes Physical Activity Frequency: Does not Exercise Review of Systems See HPI for pertinent positives & negatives. and A total of 10 systems reviewed and were otherwise negative Physical Exam Vital Signs Vital Signs - 24 hr 08/16/19 20:10 08/16/19 20:16 08/16/19 20:39 Temperature 37.5 C Temperature Source Oral Pulse Rate 85 Pulse Rate [Right Finger] Pulse Rate from SpO2 Sensor Respiratory Rate 18 Respiratory Effort / Characteristics Spontaneous Labored Respiratory Depth Normal Respiratory Pattern Regular Blood Pressure 123/75 Blood Pressure Mean 91 Pulse Oximetry 98 Oxygen Delivery Method Nasal Cannula Room Air Oxygen Flow Rate 2 Sepsis Recent Fever Within 48 Hours No Sepsis New/Unexplained Change in Mental Status No Sepsis Action Taken by Nursing No Action Required 08/16/19 20:50 08/16/19 21:13 08/16/19 21:30 Temperature Temperature Source Pulse Rate 92 H 94 H Pulse Rate [Right Finger] 93 H Pulse Rate from SpO2 Sensor 92 H 94 H Respiratory Rate 18 28 H 26 H Respiratory Effort / Characteristics Non-Labored Spontaneous Respiratory Depth Respiratory Pattern Blood Pressure 134/81 142/76 H Blood Pressure Mean 96 100 Pulse Oximetry 98 98 98 Oxygen Delivery Method Nasal Cannula Room Air Room Air Oxygen Flow Rate 2 Sepsis Recent Fever Within 48 Hours Sepsis New/Unexplained Change in Mental Status Sepsis Action Taken by Nursing 08/16/19 22:00 08/16/19 22:30 Temperature Temperature Source Pulse Rate 101 H 108 H Pulse Rate [Right Finger] Pulse Rate from SpO2 Sensor 97 H 108 H Respiratory Rate 25 H 21 Respiratory Effort / Characteristics Respiratory Depth Respiratory Pattern Blood Pressure 133/74 146/75 H Blood Pressure Mean 108 93 Pulse Oximetry 98 96 Oxygen Delivery Method Nasal Cannula Nasal Cannula Oxygen Flow Rate 2 2 Sepsis Recent Fever Within 48 Hours Sepsis New/Unexplained Change in Mental Status Sepsis Action Taken by Nursing GENERAL: Awake, alert, well-appearing, in no acute distress HENT: Normocephalic, atraumatic. Oropharynx unremarkable. EYES: Normal conjunctiva. Sclera non-icteric. NECK: Supple. No nuchal rigidity. FROM. No JVD. RESPIRATORY: Wheezing throughout all lung melara. CARDIAC: Regular rate, normal rhythm. Extremities warm and well perfused. Pulses equal. ABDOMEN: Soft, non-distended. No tenderness to palpation. No rebound or guarding. No masses. RECTAL: Deferred. MUSCULOSKELETAL: Chest examination reveals no tenderness. The back is symmetrical on inspection without obvious abnormality. There is no CVA tenderness to palpation. No joint edema. LOWER EXTREMITIES: Calves are equal size bilaterally and non-tender. No edema. No discoloration. NEURO: Normal sensorium. No sensory or motor deficits noted. SKIN: No rash or jaundice noted. Course Course 2013: The patient was evaluated in room C10 and a complete history and physical were performed. 2315: I reevaluated the patient. She is resting comfortably. I discussed my recommendation she remain in the hospital for further evaluation and management and she is agreeable with the plan. 2320: I discussed the patients case with Dr. Arguello, [facility] Hospitalist. The patient will be further evaluated. Administered Medications Miscellaneous (Order Awaiting Action) 1 ea N/A QS DRAKE Stop: 09/16/19 00:59 Last Admin: 08/17/19 00:55 Dose: Not Given Documented by: [id number] Discontinued Medications Albuterol (Duoneb) 12 ml NEB ONE ONE Stop: 08/16/19 20:40 Last Admin: 08/16/19 20:50 Dose: 12 ml Documented by: [id number] Sodium Chloride (Nss) 500 mls @ 999 mls/hr IV .Q31M DRAKE Stop: 08/16/19 21:15 Last Infusion: 08/16/19 21:22 Dose: 0 mls/hr Documented by: [id number] Admin: 08/16/19 21:04 Dose: 999 mls/hr Documented by: [id number] Acetaminophen (Ofirmev) 1,000 mg in 100 mls @ 400 mls/hr IV NOW STA Stop: 08/16/19 20:54 Last Infusion: 08/16/19 21:22 Dose: 0 mls/hr Documented by: [id number] Admin: 08/16/19 21:03 Dose: 400 mls/hr Documented by: [id number] Magnesium Sulfate/Dextrose (Magnesium Sulfate / D5w) 1 gm in 100 mls @ 100 mls/hr IV ONE ONE Stop: 08/17/19 00:00 Last Infusion: 08/17/19 00:25 Dose: 100 mls/hr Documented by: [id number] Admin: 08/16/19 23:23 Dose: 100 mls/hr Documented by: [id number] Piperacillin Sod/Tazobactam Sod (Zosyn) 4.5 gm in 120 mls @ 240 mls/hr IV NOW ONE Stop: 08/16/19 23:31 Last Admin: 08/17/19 00:54 Dose: 240 mls/hr Documented by: [id number] Levofloxacin/Dextrose (Levaquin/D5w) 750 mg in 150 mls @ 100 mls/hr IV NOW STA Stop: 08/17/19 00:31 Last Admin: 08/17/19 00:54 Dose: 100 mls/hr Documented by: [id number] Methylprednisolone (Solumedrol) 60 mg IV NOW STA Stop: 08/16/19 23:02 Last Admin: 08/16/19 23:23 Dose: 60 mg Documented by: [id number] Medical Decision Making Differential Diagnosis Differential diagnoses includes but is not limited to pneumonia, bronchitis, COPD/Asthma exacerbation, pneumothorax, pulmonary embolism, congestive heart failure, acute coronary syndrome. Medical Records Attestation: I reviewed the patient's medical records. Home Medications Current Medication List: was personally reviewed by me Laboratory Data Attestation: I reviewed the patient's lab results. Result diagrams: 08/16/19 21:00 08/16/19 21:00 Lab Results 08/16/19 08/16/19 08/16/19 Range/Units 20:11 21:00 21:00 WBC 10.02 (4.8-10.8) K/uL RBC 4.53 (4.2-5.4) M/uL Hgb 13.6 (12.0-16.0) g/dL Hct 40.9 (37-47) % MCV 90.3 (80-100) fL MCH 30.0 (25-34) pg MCHC 33.3 (32-36) g/dL RDW Std Deviation 40.6 (36.4-46.3) fL RDW Coeff of Christian 12.3 (11.5-14.5) % Plt Count 141 (130-400) K/uL MPV 9.9 (7.4-10.4) fL Immature Gran % (Auto) 0.2 % Neut % (Auto) 77.9 % Lymph % (Auto) 10.5 % [place] % (Auto) 11.3 % Eos % (Auto) 0.0 % Baso % (Auto) 0.1 % Immature Gran # (Auto) 0.02 (0.00-0.02) K/uL Neut # (Auto) 7.81 H (1.4-6.5) K/uL Lymph # (Auto) 1.05 L (1.2-3.4) K/uL [place] # (Auto) 1.13 H (0.11-0.59) K/uL Eos # (Auto) 0.00 (0-0.5) K/uL Baso # (Auto) 0.01 (0-0.2) K/uL PT 12.5 H (9.0-12.0) Seconds INR 1.2 H (0.9-1.1) APTT 32.9 H (21.0-31.0) Seconds PTT Ratio 1.2 Sodium 133 L (136-145) mmol/L Potassium 3.7 (3.5-5.1) mmol/L Chloride 101 (98-107) mmol/L Carbon Dioxide 25 (21-32) mmol/L Anion Gap 7.0 (3-11) BUN 12 (7-18) mg/dl Creatinine 0.88 (0.6-1.2) mg/dl Est Cr Clr Drug Dosing Not Reportable Est GFR ( Amer) 76.1 Est GFR (Non-Af Amer) 65.6 BUN/Creatinine Ratio 13.2 (10-20) Glucose 168 H (70-99) mg/dl Calcium 8.8 (8.5-10.1) mg/dl Total Bilirubin 1.0 (0.2-1) mg/dl AST 22 (15-37) U/L ALT 17 (12-78) U/L Alkaline Phosphatase 140 H (45-117) U/L Total Creatine Kinase 146 (26-192) U/L CK-MB (CK-2) < 1.0 (0.5-3.6) ng/ml CK/CKMB % Calc TNP Troponin I < 0.015 (0-0.045) ng/ml Total Protein 7.3 (6.4-8.2) gm/dl Albumin 2.9 L (3.4-5.0) gm/dl Globulin 4.4 H (2.5-4.0) gm/dl Albumin/Globulin Ratio 0.7 L (0.9-2) Lipase 50 L (73-393) U/L Influenza Type A (PCR) (Neg) Influenza Type B (PCR) (Neg) 08/16/19 Range/Units 21:00 WBC (4.8-10.8) K/uL RBC (4.2-5.4) M/uL Hgb (12.0-16.0) g/dL Hct (37-47) % MCV (80-100) fL MCH (25-34) pg MCHC (32-36) g/dL RDW Std Deviation (36.4-46.3) fL RDW Coeff of Christian (11.5-14.5) % Plt Count (130-400) K/uL MPV (7.4-10.4) fL Immature Gran % (Auto) % Neut % (Auto) % Lymph % (Auto) % [place] % (Auto) % Eos % (Auto) % Baso % (Auto) % Immature Gran # (Auto) (0.00-0.02) K/uL Neut # (Auto) (1.4-6.5) K/uL Lymph # (Auto) (1.2-3.4) K/uL [place] # (Auto) (0.11-0.59) K/uL Eos # (Auto) (0-0.5) K/uL Baso # (Auto) (0-0.2) K/uL PT (9.0-12.0) Seconds INR (0.9-1.1) APTT (21.0-31.0) Seconds PTT Ratio Sodium (136-145) mmol/L Potassium (3.5-5.1) mmol/L Chloride (98-107) mmol/L Carbon Dioxide (21-32) mmol/L Anion Gap (3-11) BUN (7-18) mg/dl Creatinine (0.6-1.2) mg/dl Est Cr Clr Drug Dosing Est GFR ( Amer) Est GFR (Non-Af Amer) BUN/Creatinine Ratio (10-20) Glucose (70-99) mg/dl Calcium (8.5-10.1) mg/dl Total Bilirubin (0.2-1) mg/dl AST (15-37) U/L ALT (12-78) U/L Alkaline Phosphatase (45-117) U/L Total Creatine Kinase (26-192) U/L CK-MB (CK-2) (0.5-3.6) ng/ml CK/CKMB % Calc Troponin I (0-0.045) ng/ml Total Protein (6.4-8.2) gm/dl Albumin (3.4-5.0) gm/dl Globulin (2.5-4.0) gm/dl Albumin/Globulin Ratio (0.9-2) Lipase (73-393) U/L Influenza Type A (PCR) Neg for Influ A (Neg) Influenza Type B (PCR) Neg for Influ B (Neg) Imaging Data Radiologist's Impression: Radiology results as stated below per my review and the radiologist's interpretation: XR chest 1V portable HISTORY: 74 years-old Female Chest Pain acute atypical chest pain COMPARISON: Chest radiographs 05/13/2019, radiation therapy CT 03/26/2018 TECHNIQUE: Portable AP view of the chest FINDINGS: Cardiac silhouette is mildly enlarged, unchanged. Chronic interstitial lung disease redemonstrated. There is no pneumothorax or pleural effusion. There is slightly progressed interstitial coarsening of the bilateral lungs. Degenerative changes of the shoulders and spine. IMPRESSION: Chronic interstitial lung disease with mildly progressed interstitial coarsening from the prior study dated 05/13/2019. Findings may reflect progressive fibrosis with pulmonary edema or atypical pneumonitis also within the differential. ACT 112: Negative or not required by law. The above report was generated using voice recognition software. It may contain grammatical, syntax or spelling errors. Electronically signed by: Dalton Myers M.D. 08/16/2019 8:56 PM ECG Data Attestation: I personally reviewed and interpreted this ECG as follows: Indication: + SOB/dyspnea Rate (beats per minute): 92 Rhythm: + sinus rhythm ECG Intervals/blocks: + Short ND ECG Findings: + Other (Old septal and inferior infarct) Comparison ECG Date: from (12/22/2018) Change: no significant change Blood Pressure Blood Pressure Findings: Elevated blood pressure Blood Pressure Disposition: further management by hospitalist MDM Narrative This is a 74-year-old female who presents emergency department with progressive shortness of breath. Patient is normally on 2 L of oxygen however is requiring more here. She was given an hour-long breathing treatment here in the emergency department. Her influenza swab is negative. Patient was also given Solu-Me drol. Her chest x-ray shows progressive fibrosis. Because the patient is requiring more oxygen I did discuss case with the hospitalist service who did agree to meet the patient. Patient and family were in agreement with the treatment plan. Impression & Plan Chronic obstructive pulmonary disease, unspecified, Hypoxia Discharge Plan Visit Data *Final* Discharge Date/Time: 08/17/19 00:03 Chief Complaint: Respiratory Problems Stated Complaint: FLU LIKE SX, LUNG DISORDER, CAN'T BREATHE ED Provider: Rosalio Alcocer Discharge Problem: Chronic obstructive pulmonary disease, unspecified, Hypoxia Patient Disposition: Admitted As Inpatient Discharge Instructions Interventions: ED Discharge Assessment Last Done: 08/17/19 00:03 Discharge Problem: Chronic obstructive pulmonary disease, unspecified Qualifiers: COPD type: unspecified COPD Qualified Code(s): J44.9 - Chronic obstructive pulmonary disease, unspecified The scribe's documentation has been prepared under my direction and personally reviewed by me in its entirety. I confirm that the note above accurately reflects all work, treatment, procedures, and medical decision making performed by me.
[2019-08-17] MEDS: PIPERACILLIN/TAZOBACTAM 4.5 GM in DEXTROSE 5% 100 ML IV SCH ×2 (05:37→13:50)
[2019-08-17] MEDS: methylPREDNISolone 40 MG in SYRINGE 0 ML IV SCH ×3 (05:37→21:24)
[2019-08-17 06:08] LABS: Hematocrit (blood only) 41.2 % (37-47); Hemoglobin 13.6 g/dL (12.0-16.0); Mean Corpuscular Volume 90.7 fL (80-100); Mean Platelet Volume 9.8 fL (7.4-10.4); Platelet Count 127 K/uL (130-400); RDW Coefficient of Variation 12.5 % (11.5-14.5); RDW Standard Deviation 41.4 fL (36.4-46.3); Red Blood Count 4.54 M/uL (4.2-5.4); White Blood Count 7.61 K/uL (4.8-10.8)
[2019-08-17 06:36] LABS: BUN Creatinine Ratio 12.4 (10-20); Calcium 9.2 mg/dl (8.5-10.1); Creatinine Clr Calc Pharmacy 58.5 ml/min; Est GFR (African American) 70.2; Est GFR (Non-African American) 60.6; Magnesium 2.4 mg/dl (1.8-2.4); Potassium 3.4 mmol/L (3.5-5.1)
[2019-08-17] MEDS: ENOXAPARIN INJ 40 MG/0.4 ML SYR SQ SCH (07:44)
[2019-08-17] MEDS: LETROZOLE 2.5 MG TAB PO SCH (07:45)
[2019-08-17] MEDS: CEROVITE ADV FORMULA TAB PO SCH ×2 (07:45→21:24)
[2019-08-17] MEDS: POTASSIUM CHLORIDE 10 MEQ TABCR PO SCH (07:45)
--- NOTE | 2019-08-17 10:42 | CT Scan Report ---
CT OF THE CHEST WITHOUT IV CONTRAST CLINICAL HISTORY: Known interstitial lung disease, ? pneumonia. COMPARISON STUDY: Chest radiograph May 13, 2019 and August 16, 2019. Chest CT November 12, 2016. CT DOSE: 570.25 mGy.cm TECHNIQUE: Axial images of the chest were obtained without IV contrast. Images were reviewed in the axial, sagittal, and coronal planes. IV contrast was not administered for this examination. Automat ed exposure control was utilized for the study. A dose lowering technique was utilized adhering to t he principles of ALARA. FINDINGS: A 2.6 cm seroma within the left breast at 12:00 is noted. There is mild cardiomegaly. Alona ral prominent mediastinal lymph nodes are noted. Prevascular node on image 95 of 266 measures 1 cm in short axis diameter. This has increased in size since CT of November 12, 2016. There is no pneumothorax or pleural effusion. Peripheral predominant subpleural reticulation with mild traction bronchiectasis a nd subpleural reticulation and groundglass opacity has mildly progressed since CT of November 12, 2016. Mul tifocal airspace opacities within the left upper and left lower lobes are noted, including a 1.7 cm l eft lower lobe focus. No cavitation is present. There are no suspicious pulmonary nodules. Bony thora x is unremarkable. Upper abdomen is unremarkable on this unenhanced exam. The gallbladder is surgical ly absent. IMPRESSION: 1. Multifocal airspace opacities within the left upper and left lower lobes which suggests pneumonia superimposed upon interstitial lung disease. Mild progression of interstitial lung disease since CT o f November 12, 2016. 2. Several prominent mediastinal lymph nodes which have slightly increased in size since prior CT. Th rupa are probably reactive however a follow-up chest CT in 3 months is recommended to assess these lym ph nodes and ensure resolution of airspace opacity. ACT 112: Negative or not required by law. Electronically signed by: Jaron Maloney M.D. 08/17/2019 10:41 AM
--- NOTE | 2019-08-17 12:14 | Hospitalist Progress Note ---
Date of Service August 17, 2019 Assessment & Plan (1) Acute and chronic respiratory failure: Ms. Molina is a 74y/o F with PMH significant for>>> Acute on Chronic respiratory failure: - continue oxygen supplementation as needed Pneumonia: - initial concern for gram negative pneumonia; however, last received Esbriet 8 weeks ago; has not received Ofev prior to this admission; no recent antibiotics, and no recent hospitalization - ESR 81, CRP 18.5, Pro-indy 1.22 - CT chest demonstrated: Multifocal airspace opacities within the left upper and left lower lobes which suggests pneumonia superimposed upon interstitial lung disease - blood cultures drawn on 08/16, continue to monitor - continue on IV Levaquin; discontinue Zosyn - Pulmonology consulted: appreciate recs - continue oxygen supplementation and duonebs as needed Interstitial lung disease: - patient had not started Ofev prior to this episode - last Esbriet 8 weeks ago - pulmonology consulted: appreciate recs Diet: Regular DVT ppx: Lovenox Code: Full code (2) Pneumonia: (3) Lung disease, interstitial: Admission and Anticipated Discharge Date Admission Date: August 16, 2019 Supervising Physician Co-Signing Physician Notes Resident Physician Supervision Note: I independently interviewed and examined the patient and verified the kern history and physical, reviewed labs and image studies, discussed the case with the resident Dr. Mendoza and agree with the findings and care plan. Subjective Patient feels well this morning, no longer has any concern over nasal congestion or runny nose; feels like she is having an easier time breathing since she got to the hospital. Previously was requiring 2-3L O2 at home, and was using her rescue inhaler sporadically but felt like she was using it more frequently. Review of Systems Constitutional: no fever, no chills and no sweats Eyes: no diplopia, no discharge and no photophobia Ear, Nose, Mouth, Throat: no ear discharge, no tinnitus, no nasal congestion, no nasal discharge and no post nasal drip Cardiovascular: no chest pain, no palpitations, no lightheadedness and no edema Gastrointestinal: no abdominal pain, no nausea and no vomiting Physical Exam Constitutional: WD/WN, vitals as above Eyes: PERRL, conjunctivae normal, anicteric sclerae ENMT: external ear and nose normal, oropharynx normal Respiratory: normal respiratory effort and able to speak in complete sentences; no labored breathing, no cough and no audible wheezes Auscultation: + crackles (whole field, bilaterally) and + wheezes (most pronounced over upper lobes b/l) Cardiovascular: Rate/Rhythm: regular rate and regular rhythm Heart Sounds: normal S1 and normal S2; no gallop, no murmur and no cardiac rub Vessels: no JVD Gastrointestinal (Abdomen): normal bowel sounds, soft, nontender, no hepatosplenomegaly Results & Data ([facility]) Vital Signs (Past 12 Hours) Vital Signs Temp Pulse Pulse Resp BP Pulse Ox 08/17/19 11:54 36.4 C L 61 16 117/76 97 08/17/19 08:00 68 08/17/19 07:24 36.3 C L 63 18 118/75 97 08/17/19 03:52 36.4 C L 73 21 104/62 97 08/17/19 01:02 36.6 C 89 16 118/75 98 Laboratory Results 08/17/19 08/17/19 08/17/19 Range/Units 07:54 07:54 07:54 WBC (4.8-10.8) K/uL RBC (4.2-5.4) M/uL Hgb (12.0-16.0) g/dL Hct (37-47) % MCV (80-100) fL MCH (25-34) pg MCHC (32-36) g/dL RDW Std Deviation (36.4-46.3) fL RDW Coeff of Christian (11.5-14.5) % Plt Count (130-400) K/uL MPV (7.4-10.4) fL Immature Gran % (Auto) % Neut % (Auto) % Lymph % (Auto) % [place] % (Auto) % Eos % (Auto) % Baso % (Auto) % Immature Gran # (Auto) (0.00-0.02) K/uL Neut # (Auto) (1.4-6.5) K/uL Lymph # (Auto) (1.2-3.4) K/uL [place] # (Auto) (0.11-0.59) K/uL Eos # (Auto) (0-0.5) K/uL Baso # (Auto) (0-0.2) K/uL ESR 81 H (0-21) mm/hr PT (9.0-12.0) Seconds INR (0.9-1.1) APTT (21.0-31.0) Seconds PTT Ratio Sodium (136-145) mmol/L Potassium (3.5-5.1) mmol/L Chloride (98-107) mmol/L Carbon Dioxide (21-32) mmol/L Anion Gap (3-11) BUN (7-18) mg/dl Creatinine (0.6-1.2) mg/dl Est Cr Clr Drug Dosing Est GFR ( Amer) Est GFR (Non-Af Amer) BUN/Creatinine Ratio (10-20) Glucose (70-99) mg/dl Calcium (8.5-10.1) mg/dl Magnesium (1.8-2.4) mg/dl Total Bilirubin (0.2-1) mg/dl AST (15-37) U/L ALT (12-78) U/L Alkaline Phosphatase (45-117) U/L Total Creatine Kinase (26-192) U/L CK-MB (CK-2) (0.5-3.6) ng/ml CK/CKMB % Calc Troponin I (0-0.045) ng/ml C-Reactive Protein 18.50 H (0-0.29) mg/dl Total Protein (6.4-8.2) gm/dl Albumin (3.4-5.0) gm/dl Globulin (2.5-4.0) gm/dl Albumin/Globulin Ratio (0.9-2) Lipase (73-393) U/L Procalcitonin 1.22 H (0-0.5) ng/ml Influenza Type A (PCR) (Neg) Influenza Type B (PCR) (Neg) 08/17/19 08/17/19 08/16/19 Range/Units 05:50 05:50 21:00 WBC 7.61 (4.8-10.8) K/uL RBC 4.54 (4.2-5.4) M/uL Hgb 13.6 (12.0-16.0) g/dL Hct 41.2 (37-47) % MCV 90.7 (80-100) fL MCH 30.0 (25-34) pg MCHC 33.0 (32-36) g/dL RDW Std Deviation 41.4 (36.4-46.3) fL RDW Coeff of Christian 12.5 (11.5-14.5) % Plt Count 127 L (130-400) K/uL MPV 9.8 (7.4-10.4) fL Immature Gran % (Auto) % Neut % (Auto) % Lymph % (Auto) % [place] % (Auto) % Eos % (Auto) % Baso % (Auto) % Immature Gran # (Auto) (0.00-0.02) K/uL Neut # (Auto) (1.4-6.5) K/uL Lymph # (Auto) (1.2-3.4) K/uL [place] # (Auto) (0.11-0.59) K/uL Eos # (Auto) (0-0.5) K/uL Baso # (Auto) (0-0.2) K/uL ESR (0-21) mm/hr PT (9.0-12.0) Seconds INR (0.9-1.1) APTT (21.0-31.0) Seconds PTT Ratio Sodium 136 (136-145) mmol/L Potassium 3.4 L (3.5-5.1) mmol/L Chloride 104 (98-107) mmol/L Carbon Dioxide 25 (21-32) mmol/L Anion Gap 7.0 (3-11) BUN 12 (7-18) mg/dl Creatinine 0.94 (0.6-1.2) mg/dl Est Cr Clr Drug Dosing 58.5 Est GFR ( Amer) 70.2 Est GFR (Non-Af Amer) 60.6 BUN/Creatinine Ratio 12.4 (10-20) Glucose 235 H (70-99) mg/dl Calcium 9.2 (8.5-10.1) mg/dl Magnesium 2.4 (1.8-2.4) mg/dl Total Bilirubin (0.2-1) mg/dl AST (15-37) U/L ALT (12-78) U/L Alkaline Phosphatase (45-117) U/L Total Creatine Kinase (26-192) U/L CK-MB (CK-2) (0.5-3.6) ng/ml CK/CKMB % Calc Troponin I (0-0.045) ng/ml C-Reactive Protein (0-0.29) mg/dl Total Protein (6.4-8.2) gm/dl Albumin (3.4-5.0) gm/dl Globulin (2.5-4.0) gm/dl Albumin/Globulin Ratio (0.9-2) Lipase (73-393) U/L Procalcitonin (0-0.5) ng/ml Influenza Type A (PCR) Neg for Influ A (Neg) Influenza Type B (PCR) Neg for Influ B (Neg) 08/16/19 08/16/19 08/16/19 Range/Units 21:00 21:00 20:11 WBC 10.02 (4.8-10.8) K/uL RBC 4.53 (4.2-5.4) M/uL Hgb 13.6 (12.0-16.0) g/dL Hct 40.9 (37-47) % MCV 90.3 (80-100) fL MCH 30.0 (25-34) pg MCHC 33.3 (32-36) g/dL RDW Std Deviation 40.6 (36.4-46.3) fL RDW Coeff of Christian 12.3 (11.5-14.5) % Plt Count 141 (130-400) K/uL MPV 9.9 (7.4-10.4) fL Immature Gran % (Auto) 0.2 % Neut % (Auto) 77.9 % Lymph % (Auto) 10.5 % [place] % (Auto) 11.3 % Eos % (Auto) 0.0 % Baso % (Auto) 0.1 % Immature Gran # (Auto) 0.02 (0.00-0.02) K/uL Neut # (Auto) 7.81 H (1.4-6.5) K/uL Lymph # (Auto) 1.05 L (1.2-3.4) K/uL [place] # (Auto) 1.13 H (0.11-0.59) K/uL Eos # (Auto) 0.00 (0-0.5) K/uL Baso # (Auto) 0.01 (0-0.2) K/uL ESR (0-21) mm/hr PT 12.5 H (9.0-12.0) Seconds INR 1.2 H (0.9-1.1) APTT 32.9 H (21.0-31.0) Seconds PTT Ratio 1.2 Sodium 133 L (136-145) mmol/L Potassium 3.7 (3.5-5.1) mmol/L Chloride 101 (98-107) mmol/L Carbon Dioxide 25 (21-32) mmol/L Anion Gap 7.0 (3-11) BUN 12 (7-18) mg/dl Creatinine 0.88 (0.6-1.2) mg/dl Est Cr Clr Drug Dosing Not Reportable Est GFR ( Amer) 76.1 Est GFR (Non-Af Amer) 65.6 BUN/Creatinine Ratio 13.2 (10-20) Glucose 168 H (70-99) mg/dl Calcium 8.8 (8.5-10.1) mg/dl Magnesium (1.8-2.4) mg/dl Total Bilirubin 1.0 (0.2-1) mg/dl AST 22 (15-37) U/L ALT 17 (12-78) U/L Alkaline Phosphatase 140 H (45-117) U/L Total Creatine Kinase 146 (26-192) U/L CK-MB (CK-2) < 1.0 (0.5-3.6) ng/ml CK/CKMB % Calc TNP Troponin I < 0.015 (0-0.045) ng/ml C-Reactive Protein (0-0.29) mg/dl Total Protein 7.3 (6.4-8.2) gm/dl Albumin 2.9 L (3.4-5.0) gm/dl Globulin 4.4 H (2.5-4.0) gm/dl Albumin/Globulin Ratio 0.7 L (0.9-2) Lipase 50 L (73-393) U/L Procalcitonin (0-0.5) ng/ml Influenza Type A (PCR) (Neg) Influenza Type B (PCR) (Neg) Diagnostic Findings CT OF THE CHEST WITHOUT IV CONTRAST CLINICAL HISTORY: Known interstitial lung disease, ? pneumonia. COMPARISON STUDY: Chest radiograph May 13, 2019 and August 16, 2019. Chest CT November 12, 2016. CT DOSE: 570.25 mGy.cm TECHNIQUE: Axial images of the chest were obtained without IV contrast. Images were reviewed in the axial, sagittal, and coronal planes. IV contrast was not administered for this examination. Automated exposure control was utilized for the study. A dose lowering technique was utilized adhering to the principles of ALARA. FINDINGS: A 2.6 cm seroma within the left breast at 12:00 is noted. There is mild cardiomegaly. Several prominent mediastinal lymph nodes are noted. Prevascular node on image 95 of 266 measures 1 cm in short axis diameter. This has increased in size since CT of November 12, 2016. There is no pneumothorax or pleural effusion. Peripheral predominant subpleural reticulation with mild traction bronchiectasis and subpleural reticulation and groundglass opacity has mildly progressed since CT of November 12, 2016. Multifocal airspace opacities within the left upper and left lower lobes are noted, including a 1.7 cm left lower lobe focus. No cavitation is present. There are no suspicious pulmonary nodules. Bony thorax is unremarkable. Upper abdomen is unremarkable on this unenhanced exam. The gallbladder is surgically absent. IMPRESSION: 1. Multifocal airspace opacities within the left upper and left lower lobes which suggests pneumonia superimposed upon interstitial lung disease. Mild progression of interstitial lung disease since CT of November 12, 2016. 2. Several prominent mediastinal lymph nodes which have slightly increased in size since prior CT. These are probably reactive however a follow-up chest CT in 3 months is recommended to assess these lymph nodes and ensure resolution of airspace opacity. ACT 112: Negative or not required by law. Electronically signed by: Jaron Maloney M.D. 08/17/2019 10:41 AM Medications Administered Current Inpatient Medications Acetaminophen (Tylenol) 650 mg PO Q4H PRN PRN Reason: mild pain or fever Stop: 09/16/19 00:31 Albuterol (Duoneb) 3 ml NEB Q4R PRN PRN Reason: Shortness Of Breath Or Wheezing Stop: 09/16/19 00:31 Enoxaparin Sodium (Lovenox) 40 mg SQ Q24H [facility] Stop: 09/16/19 07:59 Last Admin: 08/17/19 07:44 Dose: 40 mg Documented by: Levofloxacin/Dextrose (Levaquin/D5w) 750 mg in 150 mls @ 100 mls/hr IV Q24H [facility] Stop: 08/24/19 22:59 Methylprednisolone 40 mg/ (Syringe) 0.64 mls @ 1.5 mls/min IV Q12 [facility] Stop: 09/16/19 20:59 Letrozole (Femara) 2.5 mg PO DAILY [facility] Stop: 09/16/19 08:59 Last Admin: 08/17/19 07:45 Dose: 2.5 mg Documented by: Miscellaneous (Order Awaiting Action) 1 ea N/A QS [facility] Stop: 09/16/19 00:59 Last Admin: 08/17/19 15:26 Dose: Not Given Documented by: Multivitamins/Minerals (Multivitamin W/ Minerals Tab) 1 tab PO BID [facility] Stop: 09/16/19 08:59 Last Admin: 08/17/19 07:45 Dose: 1 tab Documented by: Ondansetron HCl (Zofran) 4 mg IV Q6H PRN PRN Reason: nausea or vomiting Stop: 09/16/19 00:31 Potassium Chloride (Klor-Con M10) 30 meq PO QAM [facility] Stop: 09/16/19 08:59 Last Admin: 08/17/19 07:45 Dose: 30 meq Documented by: Vitamin D (Vitamin D3) 2,000 units PO QPM [facility] Stop: 09/16/19 20:59 Resident Activity Tracking Resident Involvement: Resident Care Provided Care Provided: Adult Hospital Medicine
--- NOTE | 2019-08-17 14:01 | Electrocardiogram Report ---
Test Reason : Blood Pressure : / mmHG Vent. Rate : 092 BPM Atrial Rate : 092 BPM P-R Int : 098 ms QRS Dur : 106 ms QT Int : 374 ms P-R-T Axes : 006 -18 006 degrees QTc Int : 462 ms Sinus rhythm with short AL Septal infarct , age undetermined Lateral infarct , age undetermined Abnormal ECG When compared with ECG of 23-DEC-2017 15:36, Vent. rate has increased BY 30 BPM Confirmed by Hayden Stephen ([id number]) on 08/17/2019 2:01:00 PM Referred By: Nii Knox Confirmed By:Hayden Stephen
--- NOTE | 2019-08-17 14:03 | Pulmonary Consultation ---
Date of Consultation August 17, 2019 Assessment & Plan (1) Pneumonia: -- Multilobar pneumonia CT chest shows bilateral ground-glass along with some consolidative changes especially in the left upper and left lower ESR: 81, CRP: 18.5, procalcitonin 1.22, follow-up blood culture and sputum culture, influenza negative Continue with antibiotics, start tapering steroids to p.o. as of tomorrow. -- IPF with chronic hypoxic respiratory failure Diagnosed in April 2018 status post lung biopsy. Patient has a following up with Dr. Swift since then. She was initially on pirfenidone which was changed to nintedanib recently because of her elevated LFTs. Continue with oxygen to keep oxygen saturation 90-92 % Recent CT scan 08/17/2019 does show some increase in progression of IPF with mediastinal lymphadenopathy. Mediastinal lymphadenopathy likely reactive to the new infiltrates in the lung. Patient will need a repeat CT chest without contrast to be done in 3 months to make sure there is the decrease in size of mediastinal lymphadenopathy -- History of breast cancer Status post lumpectomy and chemo, no radiation On letrozole Please note the above document was generated using voice recognition software. It may contain grammatical, syntax or spelling errors. (2) Acute and chronic respiratory failure: (3) IPF (idiopathic pulmonary fibrosis): (4) Chronic cough: History of Present Illness Attending Physician: Noreen Jain MD History of Present Illness 74-year-old female past medical history of IPF diagnosed April 2018 status post lung biopsy on Nintedanib, chronic hypoxic respiratory failure on 2 liters nasal cannula at home, history of breast cancer status post lumpectomy and chemo 2 years ago comes to the hospital with complaints of generalized malaise, cough productive of yellow phlegm quit also the last 4 5 days and shortness of Breath. Patient denies any chest pain. No dysuria, no diarrhea, no recent upper respiratory infections. Denies any dizziness, no lightheadedness, no nausea or vomiting. No dysuria, no diarrhea. No recent travel history. No night sweats, no weight loss. Social history: Nonsmoker, no illicit drug use, social alcohol. No family history of any lung cancers. Allergies Allergy/AdvReac Type Severity Reaction Status Date / Time No Known Allergies Allergy Verified 08/16/19 22:19 Home Medications Home Medications Medication Instructions Recorded Confirmed Type cholecalciferol (vitamin D3) 50 2,000 units PO QPM 03/16/18 08/16/19 History mcg (2,000 unit) capsule letrozole 2.5 mg tablet 2.5 mg PO DAILY 05/08/18 08/16/19 History ipratropium 0.5 mg-albuterol 3 mg 3 ml INH QID PRN 11/24/18 08/16/19 History (2.5 mg base)/3 mL nebulization soln vitamins A,C,X-imvm-adjmoq 1 cap PO BID 03/15/19 08/16/19 History furosemide 20 mg tablet 20 mg PO 3XWK tab 07/26/19 08/16/19 History nintedanib 150 mg capsule 150 mg PO Q12H #60 cap 08/05/19 08/16/19 Rx potassium chloride 20 mEq oral 30 meq PO 3XWK ea 08/05/19 08/16/19 History packet albuterol sulfate [Ventolin HFA] 2 puffs INH Q6H PRN 08/16/19 08/16/19 History meclizine 12.5 mg PO TID PRN 08/16/19 08/16/19 History Patient History Medical History Chronic cough (Acute) Chronic obstructive pulmonary disease, unspecified (Acute) Chronic sinusitis (Acute) Hearing deficit History of breast cancer RADIATION Interstitial lung disease Invasive ductal carcinoma of breast (Chronic) Lichen simplex chronicus (Acute) Nocturnal oxygen desaturation O2 2L HS Obesity On home oxygen therapy 2 LPM HS Sensorineural hearing loss (SNHL) of both ears (Acute) UIP (usual interstitial pneumonitis) (Chronic) Surgical History History of cataract surgery History of cholecystectomy History of surgery DERMOID CYST EXCSION History of tonsillectomy and adenoidectomy Status post left breast lumpectomy LEFT PARTIAL BREAST MASTECTOMY WITH LNB= 12/31/17= LMA#4 AT [facility] Family History Mother Family history of diabetes mellitus Sister Family history of diabetes mellitus Family/Other Family history of diabetes mellitus CHILDREN Social History Preferred Language: Luxembourgish Communication Ability: Effective Visual Impairment: No Limitations Hearing Ability: Normal 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 Beliefs That Will Affect Care: None marital status: Current Living Situation: Alone current occupational status: employed Other Information That Helps Us Care for You: No Feels Safe at Home: Yes Smoking Status: Never smoker Second Hand Exposure: Yes ( A CHILD) ; Hx Alcohol Use: No Hx Substance Use: No Dental Care, Regularly: Yes Physical Activity Frequency: Does not Exercise Review of Systems Review of Systems: All systems reviewed & are unremarkable except as noted in HPI & below Physical Exam Physical Exam: Constitutional: No acute distress HEENT: EOMI, PERRLA, moist mucous membranes Respiratory system: Decreased air entry bilaterally, positive drive Velcro crackles appreciated bilaterally, no wheeze, no rhonchi CVS: S1-S2 positive, no murmurs or gallops Abdomen: Soft, nontender, nondistended, positive bowel sounds x4 Extremities: +2 pulses bilaterally radialis/ dorsalis pedis, no cyanosis, no edema, no clubbing Neuro: Awake alert oriented x3 Psych: Normal mood and affect G/U: No Christensen Skin: no rashes, warm and dry Lymphatic: no cervical or axillary lymphadenopathy Results & Data ([facility]) Vital Signs (Past 12 Hours) Vital Signs Temp Pulse Pulse Resp BP Pulse Ox 08/17/19 11:54 36.4 C L 61 16 117/76 97 08/17/19 08:00 68 08/17/19 07:24 36.3 C L 63 18 118/75 97 08/17/19 03:52 36.4 C L 73 21 104/62 97 08/17/19 05:50 08/17/19 05:50 PG Care Time/CCT Total # of Minutes Spent Total Time Spent with Patient: Total time spent is greater than 50% in coordination of care (as documented) at patient's floor/unit and/or counseling patient: [place] [address] Initial Inpt Care Lvl 3 Patient Type Established Diagnoses Pneumonia J18.9 Acute and chronic respiratory failure J96.20 IPF (idiopathic pulmonary fibrosis) J84.112 Chronic cough R05
[2019-08-17] MEDS ORDERED: CHOLECALCIFEROL 1,000 UNITS 25 MCG TAB PO SCH (21:00)
[2019-08-17] MEDS ORDERED: LORATADINE 10 MG TAB PO ONE (21:44)
[2019-08-17] MEDS ORDERED: diphenhydrAMINE HCl 12.5 MG/5 ML UDC PO ONE (22:00)
[2019-08-17] MEDS ORDERED: LEVOFLOXACIN/D5W 750 MG/150 ML BAG IV SCH (23:00)
[2019-08-18 07:11] LABS: Basophils # (auto) 0.02 K/uL (0-0.2); Basophils % (auto) 0.2 %; Hematocrit (blood only) 39.8 % (37-47); Hemoglobin 13.4 g/dL (12.0-16.0); Immature Granulocytes # (auto) 0.07 K/uL (0.00-0.02); Immature Granulocytes % (auto) 0.6 %; Lymphocytes # (auto) 1.07 K/uL (1.2-3.4); Lymphocytes % (auto) 8.5 %; Mean Corpuscular Hemoglobin 30.2 pg (25-34); Mean Corpuscular Hgb Conc 33.7 g/dL (32-36); Mean Corpuscular Volume 89.6 fL (80-100); Mean Platelet Volume 10.5 fL (7.4-10.4); Monocytes # (auto) 0.67 K/uL (0.11-0.59); Monocytes % (auto) 5.3 %; Neutrophils # (auto) 10.75 K/uL (1.4-6.5); Neutrophils % (auto) 85.4 %; Platelet Count 156 K/uL (130-400); RDW Coefficient of Variation 12.4 % (11.5-14.5); RDW Standard Deviation 40.3 fL (36.4-46.3); Red Blood Count 4.44 M/uL (4.2-5.4); White Blood Count 12.58 K/uL (4.8-10.8)
[2019-08-18 07:51] LABS: Albumin Globulin Ratio 0.6 (0.9-2); Albumin Level 2.6 gm/dl (3.4-5.0); BUN Creatinine Ratio 24.5 (10-20); Bilirubin,Total 0.5 mg/dl (0.2-1); Calcium 9.3 mg/dl (8.5-10.1); Creatinine Clr Calc Pharmacy 70.3 ml/min; Globulin 4.6 gm/dl (2.5-4.0); Potassium 4.1 mmol/L (3.5-5.1); Total Protein 7.2 gm/dl (6.4-8.2)
[2019-08-18] MEDS: CEROVITE ADV FORMULA TAB PO SCH (08:12)
[2019-08-18] MEDS: LETROZOLE 2.5 MG TAB PO SCH (08:13)
[2019-08-18] MEDS: ENOXAPARIN INJ 40 MG/0.4 ML SYR SQ SCH (08:14)
[2019-08-18] MEDS: methylPREDNISolone 40 MG in SYRINGE 0 ML IV SCH (08:16)
[2019-08-18] MEDS: POTASSIUM CHLORIDE 10 MEQ TABCR PO SCH (08:16)
[2019-08-18] MEDS ORDERED: LORATADINE 10 MG TAB PO SCH (09:00)
[2019-08-18 14:49] VITALS: BP 116/72; TEMP 97.9; O2SAT 92
[2019-08-18 17:27] VITALS: PULSE 73
--- NOTE | 2019-08-18 17:34 | Pulmonology Progress Note ---
Date of Service August 18, 2019 Assessment & Plan (1) Pneumonia: -- Multilobar pneumonia CT chest shows bilateral ground-glass along with some consolidative changes especially in the left upper and left lower ESR: 81, CRP: 18.5, procalcitonin 1.22, follow-up blood culture and sputum culture, influenza negative Continue with antibiotics for total of 5 days. DC steroids. -- IPF with chronic hypoxic respiratory failure Diagnosed in April 2018 status post lung biopsy. Patient has a following up with Dr. Swift since then. She was initially on pirfenidone which was changed to nintedanib recently because of her elevated LFTs. Continue with oxygen to keep oxygen saturation 90-92 % Recent CT scan 08/17/2019 does show some increase in progression of IPF with mediastinal lymphadenopathy. Mediastinal lymphadenopathy likely reactive to the new infiltrates in the lung. Patient will need a repeat CT chest without contrast to be done in 3 months to make sure there is the decrease in size of mediastinal lymphadenopathy -- History of breast cancer Status post lumpectomy and chemo, no radiation On letrozole No further recommendation from pulmonary perspective. Patient doing clinically much better. Will sign off. Recall if needed. Please note the above document was generated using voice recognition software. It may contain grammatical, syntax or spelling errors. (2) Acute and chronic respiratory failure: (3) IPF (idiopathic pulmonary fibrosis): (4) Chronic cough: Subjective Patient seen and examined at bedside. No acute distress, no adverse events overnight. Patient feeling much better. Has been bringing up phlegm. Cough is decreased in intensity. Denies any chest pain, good appetite. No nausea or vomiting. No dizziness, no headache. Review of Systems Review of Systems: All systems reviewed & are unremarkable except as noted in HPI & below Physical Exam Physical Exam: Constitutional: No acute distress HEENT: EOMI, PERRLA, moist mucous membranes Respiratory system: Decreased air entry bilaterally, positive drive Velcro crackles appreciated bilaterally, no wheeze, no rhonchi CVS: S1-S2 positive, no murmurs or gallops Abdomen: Soft, nontender, nondistended, positive bowel sounds x4 Extremities: +2 pulses bilaterally radialis/ dorsalis pedis, no cyanosis, no edema, no clubbing Neuro: Awake alert oriented x3 Psych: Normal mood and affect G/U: No Christensen Patient saturating 97% on room air at the time of examination at rest. Skin: no rashes, warm and dry Lymphatic: no cervical or axillary lymphadenopathy Results & Data ([facility]) Vital Signs (Past 12 Hours) Vital Signs Temp Pulse Pulse Resp BP Pulse Ox 08/18/19 17:26 36.6 C 73 24 116/72 92 08/18/19 16:00 72 08/18/19 14:47 36.6 C 73 24 116/72 92 08/18/19 08:00 85 08/18/19 07:36 36.3 C L 101 H 20 137/88 97 08/18/19 06:41 08/18/19 06:41 PG Care Time/CCT Total # of Minutes Spent Total Time Spent with Patient: Total time spent is greater than 50% in coor dination of care (as documented) at patient's floor/unit and/or counseling patient: Coding Level of Care Code 48683 Subseq Hosp Care Lvl 3 Diagnoses Pneumonia J18.9 Acute and chronic respiratory failure J96.20 IPF (idiopathic pulmonary fibrosis) J84.112 Chronic cough R05
--- NOTE | 2019-08-18 17:42 | Discharge Summary ---
Date of Service August 18, 2019 Admission HPI Per Admitting Provider 74 y/o female presented to the ED with complaints of worsening SOB, non- productive cough, and chills without documented fever. She chronically uses oxygen at 2L nc due to interstitial lung disease. No chest pain, N/V/D, headache or body aches. She has felt weak. Principal Diagnosis Pneumonia Discharge Exam Constitutional WD/WN, vitals as above Eyes PERRL, conjunctivae normal, anicteric sclerae ENMT external ear and nose normal, oropharynx normal Respiratory normal respiratory effort and able to speak in complete sentences; no labored breathing, no cough and no audible wheezes Auscultation: + crackles (whole field, bilaterally) and + wheezes (most pronounced over upper lobes b/l) Cardiovascular Rate/Rhythm: regular rate and regular rhythm Heart Sounds: normal S1 and normal S2; no gallop, no murmur and no cardiac rub Vessels: no JVD Gastrointestinal (Abdomen) normal bowel sounds, soft, nontender, no hepatosplenomegaly Discharge Data Allergies Allergy/AdvReac Type Severity Reaction Status Date / Time No Known Allergies Allergy Verified 08/16/19 22:19 Consultations 08/16/19 23:09 ED Decision to Admit Stat 08/17/19 00:32 Consult Pulmonology Routine Ordered Studies 08/17/19 00:32 CT chest wo con Routine Hospital Course (1) Acute and chronic respiratory failure: Ms. Molina is a 74y/o F with PMH significant for ILD. Acute on Chronic respiratory failure: - continue oxygen supplementation at home as needed Pneumonia: - initial concern for gram negative pneumonia; however, last received Esbriet 8 weeks ago; has not received Ofev prior to this admission; no recent antibiotics, and no recent hospitalization - CT chest demonstrated: Multifocal airspace opacities within the left upper and left lower lobes which suggests pneumonia superimposed upon interstitial lung disease - blood cultures drawn NG at 24hrs - continue on Levaquin 750mg daily - Prednisone 40mg (4 tabs) daily for 3 days then 30mg (3 tabs) daily for 3 days then 20mg (2 tabs) daily for 3 days then 10mg (1 tab) daily for 3 days Interstitial lung disease: - patient had not started Ofev prior to this episode - last Esbriet 8 weeks ago - pulmonology consulted: outpatient follow up. Code: Full code (2) Pneumonia: Total Time Total Time Spent Total Time Spent (In Minutes): 30 Discharge Plan Discharge Items Patient Disposition: Home - Self-Care Reason For Visit: PNEUMONITIS Discharge Diagnosis: Pneumonia Activity: Resume your previous activity Non-emergency contact: Primary Care Provider Call non-emergency contact if: you have any medication questions, your symptoms worsen and you have a fever Follow-up/Referrals: Nii Knox III, MD [Primary Care Provider] - 08/25/19 1:50 pm Diet: Heart Healthy Addtl Attending Provider Instructions: Ms. Molina you were admitted for concern of pneumonia. You were treated and your condition improved. 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 in 1-2 weeks -Please follow up with your primary care doctor in 2-3 days Pending Studies at Discharge: No Stand-Alone Forms: My [facility] [employer] Pistol, Smoking Cessation Medications and DC Order Prescriptions: New levofloxacin [Levaquin] 750 mg tablet 750 mg PO DAILY 5 Days Qty: 5 RF: 0 prednisone 10 mg tablet 10 mg PO DAILY Qty: 30 RF: 0 Continued letrozole 2.5 mg tablet 2.5 mg PO DAILY RF: 0 ipratropium-albuterol 0.5 mg-3 mg(2.5 mg base)/3 mL solution for nebulization 3 ml INH QID PRN (Reason: Shortness Of Breath Or Wheezing) RF: 0 Ofev 150 mg capsule 150 mg PO Q12H Qty: 60 RF: 5 potassium chloride [Klor-Con] 20 mEq packet 30 meq PO 3XWK RF: 0 furosemide [Lasix] 20 mg tablet 20 mg PO 3XWK RF: 0 vitamins A,C,V-sjmb-xufimu 1 cap PO BID RF: 0 meclizine 12.5 mg tablet 12.5 mg PO TID PRN (Reason: Vertigo) RF: 0 albuterol sulfate [Ventolin HFA] 90 mcg/actuation HFA aerosol inhaler 2 puffs INH Q6H PRN (Reason: Shortness Of Breath Or Wheezing) RF: 0 No Action cholecalciferol (vitamin D3) 50 mcg (2,000 unit) capsule 2,000 units PO DAILY RF: 0 Discharge Orders: Discharge Order (Routine); Ordered 08/18/19 Ordered By: Kit Melendrez Admission Data Admit Date/Time: 08/16/19 23:25 Attending Provider: Noreen Jain Admit Provider: Gonzalez Arguello Primary Care Provider: Nii Knox III Other Providers: Gonzalez Arguello ; Alena Rahman Other Interventions: Discharge Summary Assessment (RN) Last Done: 08/18/19 17:26 DC Date/Time DO NOT enter until pt leaves facility: 08/18/19 18:08 Supervising Physician Co-Signing Physician Notes Resident Physician Supervision Note: I independently interviewed and examined the patient and verified the kern history and physical, reviewed labs and image studies, discussed the case with the resident Dr. Mendoza and agree with the findings and care plan. Resident Activity Tracking Resident Involvement: Resident Care Provided Care Provided: Adult Hospital Medicine
== END 2019-08-18 18:08 | disposition home or self-care (01) ==
LOC: 2N 20:09 → ED 20:09 → SUATTDRO 23:25 → 2N 08-17 00:03

== ENCOUNTER 2021-06-28 10:40 | Inpatient (IN) ==
[~2021-06-28 10:40] MED LIST changes: -500ML BSS 0.3ML EPI 1:1000PF IRRIG ONE; -ACETAMINOPHEN 325 MG TAB PO PRN; -AMVISC PLUS 0.8ML SYRINGE INT OCU ONE; -ATROPINE SULFATE 0.1 MG/ML 5ML SYR IV PRN; -BSS FLUSH ONE; -CHOL2000 PO; -DIPH25CA65 PO; -ENDOCOAT 0.85ML SYRINGE INT OCU ONE; -EpHEDrine SULFATE INJ 50 MG/ML AMP IV PRN; -EpINEphrine INJ 1MG/ML AMP 1 MG/ML AMP ONE; +HEPARIN (PORCINE) 1000 UNIT/ML 10 ML (CATH LAB USE ONLY) ONE; -LACTATED RINGER'S 1000ML 500 ML IV SCH; -LIDOCAINE 4% OP SOLN DROP CHARGE ONE; -LIDOCAINE 4% OP SOLN DROP CHARGE OPL SCH; -LIDOCAINE HCL 1% MPF 2 ML VIAL ONE; -MAGN250T8 PO; -MIX: 4ML BSS 1ML EPI 1:1000 PF TOP ONE; -MOXIFLOXACIN OPH SOLN PER DROP CHARGE ONE; +NITROGLYCERIN/D5W 100MCG/ML 20ML SYR ONE; -POVIDONE-IODINE OP SOLN 30 ML BTL ONE; -PROPARACAINE 0.5% OP SOLN PER DROP CHARGE OPL SCH; -TOBRAMYCIN/DEXAMETHASONE OPH OINT PER APPLN CHARGE ONE; +fentaNYL citrate 100 MCG/2 ML VIAL ONE; +niCARdipine HCL INJ 2.5 MG/ML 10 ML AMP ONE
[2021-06-28] MEDS ORDERED: fentaNYL citrate 100 MCG/2 ML VIAL IV STA (10:50)
[2021-06-28] MEDS ORDERED: fentaNYL citrate 100 MCG/2 ML VIAL ONE (10:51)
[2021-06-28] MEDS ORDERED: HEPARIN SOD (PORCINE) 1000 UNIT/ML IV ONE (10:52)
[2021-06-28] MEDS ORDERED: TICAGRELOR 90 MG TAB PO STA (10:52)
[2021-06-28 11:00] LABS: Basophils # (auto) 0.01 K/uL (0-0.2); Basophils % (auto) 0.1 %; Eosinophils # (auto) 0.41 K/uL (0-0.5); Eosinophils % (auto) 4.8 %; Hematocrit (blood only) 43.6 % (37-47); Hemoglobin 14.4 g/dL (12.0-16.0); Immature Granulocytes # (auto) 0.01 K/uL (0.00-0.02); Immature Granulocytes % (auto) 0.1 %; Lymphocytes # (auto) 3.66 K/uL (1.2-3.4); Mean Corpuscular Hemoglobin 30.1 pg (25-34); Mean Platelet Volume 10.3 fL (7.4-10.4); Monocytes % (auto) 9.4 %; Neutrophils # (auto) 3.63 K/uL (1.4-6.5); Neutrophils % (auto) 42.6 %; Platelet Count 209 K/uL (130-400); RDW Coefficient of Variation 13.1 % (11.5-14.5); RDW Standard Deviation 43.7 fL (36.4-46.3); Red Blood Count 4.79 M/uL (4.2-5.4); White Blood Count 8.52 K/uL (4.8-10.8)
[2021-06-28 11:03] LABS: iSTAT Creatinine 0.6 mg/dl (0.6-1.3); iSTAT Ionized Calcium 1.15 mmol/l (1.12-1.32); iSTAT Potassium 3.3 mmol/L (3.3-5.0)
--- NOTE | 2021-06-28 11:10 | History & Physical Report ---
Date of Service June 28, 2021 Assessment & Plan (1) STEMI (ST elevation myocardial infarction): Plan: Mrs. Molina is a 75 year old female with a history of Idiopathic Pulmonary Fibrosis (on chronic supplemental O2), Breast Cancer, Chronic Dyspnea, COPD, Nocturnal Hypoxemia, and Lichen Simplex Chronicus who presented to [facility] ER via EMS with an Acute STEMI secondary to a 99%+ ostial to proximal D1 stenosis/occlusion. Patient developed acute onset dyspnea that awoke her from sleep at 0845 followed by acute substernal chest pain that radiated down both arms with associated diaphoresis and nausea. Her EKG en route demonstrated ST elevation in leads I and aVL with ST depressions in leads III and aVF. A Heart Alert was activated. Her prior EKG's were reviewed and today's EKG changes are new. Patient took 4 Baby Aspirin 81 mg. She was given SL Nitroglycerin by EMS. She denies any prior cardiac history or prior cardiac events. Patient has noticed increased MARIN over the past week with her usual activities -- but she attributed this to her pulmonary fibrosis. She has not experienced any exertional chest pain or arm leading up to her infarct today. Emergent Cardiac Catheterization demonstrated a 99%+ ostial to proximal D1 stenosis which was stented with 2 drug eluting stents. There was also significant proximal to mid LAD stenosis that was stented with a drug eluting stent. Arterial access via the right radial artery. Patient tolerated this procedure without complications. Her Akdz-yf-Vtivcoe time was 54 minutes. Initial Troponin I is 0.043 ng/mL. Patient is doing well and is completely asymptomatic following her PCI. Recommend the followin. Admit to ICU. 2. Continuous cardiac monitoring, SpO2 monitoring. 3. Continuous O2 to maintain SpO2 = or > 94%. 4. Begin Metoprolol Tartrate 25 mg b.i.d. -- can convert to Metoprolol Succinate ER at discharge. 5. Begin Aspirin 81 mg daily for her lifetime. 6. Begin Plavix 75 mg daily for a minimum of 1 year. 7. Begin Atorvastatin 80 mg daily. 8. Begin Losartan 25 mg daily. 9. Echocardiogram ordered. 10. Trend troponin I until it peaks, then D/C. 11. Arrange Cardiac Rehab at follow-up appointment with [facility] in 1 to 2 weeks. (2) Dyslipidemia: Plan: Fasting lipid panel 04/26/21 showed total cholesterol 242 mg/dL, HDL 58 mg/dL, and an LDL of 145 mg/dL. -- Begin Atorvastatin 80 mg daily. -- Recheck FLP in 2 to 3 months. (3) IPF (idiopathic pulmonary fibrosis): Plan: -- Continue Ofev and inhalers. -- Continue supplemental O2. -- Followed by Dr. Rondon. (4) Dyspnea: Plan: -- She has chronic MARIN due to IPF and COPD. -- Continue Ofev and inhalers. -- Continue supplemental O2. (5) Chronic obstructive pulmonary disease, unspecified: Plan: -- Continue Ofev and inhalers. -- Continue supplemental O2. (6) Chronic respiratory failure with hypoxia: Plan: -- Continue Ofev and inhalers. -- Continue supplemental O2. (7) Nocturnal oxygen desaturation: Plan: -- Continue Ofev and inhalers. -- Continue supplemental O2. (8) Hypokalemia: Plan: -- Continue Potassium Chloride 10 mEq daily. -- Hold Lasix for now following contrast load. -- Give stat dose of KCL 20 mEq now. -- Monitor daily labs. (9) Elevated blood sugar: Plan: Blood sugar 183 mg/dL on presentation. -- Check HgbA1c. History of Present Illness Chief Complaint: -- STEMI, secondary to 99% D1 Stenosis s/p YAMILA x 2. Myib-ov-Cnrefgt Time 54 minutes. -- LAD Stenosis s/p Proximal to Mid YAMILA. -- CAD. -- Heart Alert. Primary Care Provider: Nii Knox MD Mrs. Molina is a 75 year old female with a history of Idiopathic Pulmonary Fibrosis (on chronic supplemental O2), Breast Cancer, Chronic Dyspnea, COPD, Nocturnal Hypoxemia, and Lichen Simplex Chronicus who presented to [facility] ER via EMS for acute onset dyspnea that awoke her from sleep at 0845 followed by acute substernal chest pain that radiated down both arms with associated diaphoresis and nausea. Her EKG en route demonstrated ST elevation in leads I and aVL with ST depressions in leads III and aVF. A Heart Alert was activated. Her prior EKG's were reviewed and today's EKG changes are new. Patient took 4 Baby Aspirin 81 mg. She was given SL Nitroglycerin by EMS. She denies any prior cardiac history or prior cardiac events. Patient has noticed increased MARIN over the past week with her usual activities -- but she a ttributed this to her pulmonary fibrosis. She has not experienced any exertional chest pain or arm leading up to her infarct today. Emergent Cardiac Catheterization demonstrated a 99%+ ostial to proximal D1 stenosis which was stented with 2 drug eluting stents. There was also significant proximal to mid LAD stenosis that was stented with a drug eluting stent. Arterial access via the right radial artery. Patient tolerated this procedure without complications. Her Sook-kn-Stjapro time was 54 minutes. Allergies Allergy/AdvReac Type Severity Reaction Status Date / Time No Known Allergies Allergy Verified 04/26/21 13:37 Home Medications Medication Instructions Recorded Confirmed Type letrozole 2.5 mg tablet 2.5 mg PO HS 05/08/18 04/26/21 History vitamins A,C,J-wpde-vjpdro 7,160 1 tab PO BID 09/15/19 04/26/21 History unit-113 mg-100 unit tablet (PreserVision AREDS) ipratropium 0.5 mg-albuterol 3 mg 3 ml INH QID PRN #180 ml 11/16/20 04/26/21 Rx (2.5 mg base)/3 mL nebulization soln chlorpheniramine maleate 4 mg 4 mg PO Q12H PRN #40 tab 01/03/21 03/28/21 Rx tablet nebulizer accessories #1 ea 01/04/21 04/26/21 Rx nebulizers #1 ea 01/04/21 04/26/21 Rx sodium chloride 0.65 % nasal spray 2 spray INTRANASAL QID PRN #60 ml 02/05/21 04/26/21 Rx aerosol ([place] Nasal) pantoprazole 40 mg tablet,delayed 40 mg PO DAILY #30 tab 02/12/21 04/26/21 Rx release pseudoephedrine HCl 120 mg 120 mg PO DAILY 02/18/21 04/26/21 History tablet,extended release fluticasone furoate 100 1 inh INHALATION DAILY #60 ea 03/20/21 04/26/21 Rx mcg-vilanterol 25 mcg/dose inhalation powder (Breo Ellipta) albuterol sulfate 90 mcg/actuation 2 puff INH Q6H PRN #18 g 03/29/21 04/26/21 Rx aerosol inhaler (Ventolin HFA) nintedanib 150 mg capsule 150 mg PO BID #60 cap 04/04/21 04/26/21 Rx meclizine 12.5 mg tablet 12.5 mg PO TID PRN #90 tab 05/08/21 Rx potassium chloride 10 mEq 10 meq PO DAILY #30 tab 05/24/21 Rx tablet,extended release (Klor-Con) fluticasone propionate 50 2 spray INTRANASAL DAILY #15.8 ml 06/18/21 Rx mcg/actuation nasal spray,suspension (Flonase Allergy Relief) furosemide 20 mg tablet (Lasix) 20 mg PO DAILY 30 Days #30 tab 06/19/21 Rx Past Med/Surg History Medical History Chronic cough Chronic sinusitis Hearing deficit LEFT SIDE MORE History of breast cancer LEFT BREAST>RADIATION Hypokalemia Interstitial lung disease Invasive ductal carcinoma of breast Invasive ductal carcinoma of breast, female IPF (idiopathic pulmonary fibrosis) FOLLOWS WITH DR. NUNEZ IPF (idiopathic pulmonary fibrosis) Liver enzyme elevation IPF THERAPY RECENTLY CHANGED DUE TO LFT ELEVATION; LFT HAVE NOT BEEN RECHECKED SINCE MEDICATION CHANGE. Nocturnal oxygen desaturation O2 2L HS Obesity On home oxygen therapy 2L AT HS AND PRN DAILY IF O2 SATS DROP Pencilling of stools Pneumonia UIP (usual interstitial pneumonitis) HOSPITALIZED WITH BACTERIAL PNUEMONIA 08/16-08/18 Surgical History History of bronchoscopy History of cataract surgery RT/LEFT History of cholecystectomy (~2004) History of colonoscopy (12/31/16) [facility], Dr Delong, small polyp removed, repeat in 5 years recommended History of colonoscopy (01/21/20) Dr. Foley, normal, recheck not recommended due to age History of lung biopsy History of surgery BENIGN DERMOID CYST EXCSION with bilt oopherectomy History of tonsillectomy and adenoidectomy (~1955) Status post left breast lumpectomy (~12/31/17) LEFT PARTIAL BREAST MASTECTOMY WITH LNB= 12/31/17= LMA#4 AT [facility] Family History Mother Family history of diabetes mellitus Sister Family history of diabetes mellitus Family/Other Family history of diabetes mellitus CHILDREN Denies family history of Ovarian cancer Prostate cancer Myocardial infarction Breast cancer Colorectal cancer Social History Smoking Status: Never smoker Second Hand Exposure: Yes ( A CHILD); Hx Alcohol Use: No Hx Substance Use: No Preferred Language: Cameroonian Communication Ability: Effective Visual Impairment: No Limitations Hearing Ability: Normal [employer] Required: No Beliefs That Will Affect Care: None marital status: Current Living Situation: Alone current occupational status: retired Other Information That Helps Us Care for You: No Feels Safe at Home: Yes Safety Concerns: Feels Safe At This Time Dental Care, Regularly: Yes Physical Activity Frequency: Does not Exercise Seatbelt Use: always Assistive Devices: Oxygen - Continuous Review of Systems Review of Systems: -- Chronic MARIN, on chronic O2 at 2L/min via NC. -- Ten point ROS was completed and is negative with the exception of what is mentioned in the HPI. Physical Exam Physical Exam: GENERAL: Patient in no acute distress. HEENT: Head is atraumatic, normocephalic. Sclerae anicteric. EOM's intact. Facies symmetric. No perioral cyanosis. NECK: No JVD. JVP is not elevated. Carotid upstrokes are + 2 bilaterally without obvious bruits. CHEST/LUNGS: Diffuse scattered crackles throughout. No wheezes or rhonchi. CVS: S1 and S2 are regular, bradycardic at 56 bpm without obvious murmurs, gallops, or rubs. PMI is nondisplaced. No lifts, heaves, or thrills. No abdominal aortic or renal bruits. ABDOMINAL EXAM: Bowel sounds are present. No masses, organomegaly, or tenderness. EXTREMITIES: No edema. TR band over right radial artery. NEUROLOGIC EXAM: Patient is awake, alert, and oriented. Pleasant and cooperative. Answers questions appropriately. Speech is clear. Normal movement in all 4 extremities. Gait pattern was not assessed. Solution Consultant shows NSR to sinus bradycardia. EKG 06/27/21: -- NSR with ST elevation in leads I and aVL with ST depressions in leads III and aVF. Echocardiogram is ordered. Results & Data Results & Data ([facility]) Vital Signs (Past 12 Hours) Vital Signs Temp Pulse Pulse Resp BP BP Pulse Ox 06/28/21 10:55 70 18 139/73 99 06/28/21 10:54 100 06/28/21 10:40 36.8 C 72 22 141/77 H 97 Laboratory Results Laboratory Results - last 24 hr 06/28/21 06/28/21 06/28/21 10:43 10:43 10:43 WBC 8.52 RBC 4.79 Hgb 14.4 POC Hgb Hct 43.6 POC Hct MCV 91.0 MCH 30.1 MCHC 33.0 RDW Std Deviation 43.7 RDW Coeff of Christian 13.1 Plt Count 209 MPV 10.3 Immature Gran % (Auto) 0.1 Neut % (Auto) 42.6 Lymph % (Auto) 43.0 Bartholomew % (Auto) 9.4 Eos % (Auto) 4.8 Baso % (Auto) 0.1 Neut # (Auto) 3.63 Lymph # (Auto) 3.66 H Bartholomew # (Auto) 0.80 H Eos # (Auto) 0.41 Baso # (Auto) 0.01 Immature Gran # (Auto) 0.01 PT 10.9 INR 1.1 APTT 27.3 PTT Ratio 1.0 Activ Coag Time Kaolin POC Sodium Sodium 139 POC Potassium Potassium 3.2 L POC Chloride Chloride 105 Carbon Dioxide 26 POC Total CO2 Anion Gap 8.0 POC Anion Gap POC BUN BUN 9 Creatinine 0.80 POC Creatinine Est Cr Clr Drug Dosing 66.8 Est GFR ( Amer) 84.8 Est GFR (Non-Af Amer) 73.1 BUN/Creatinine Ratio 11.2 Glucose 185 H POC Glucose (other) Calcium 9.6 POC Ioniz Calcium Mike Magnesium 1.9 Total Bilirubin 0.5 AST 23 ALT 30 Alkaline Phosphatase 171 H Total Creatine Kinase 59 CK-MB (CK-2) < 1.0 CK/CKMB % Calc TNP Troponin I 0.043 Total Protein 7.3 Albumin 3.1 L Globulin 4.2 H Albumin/Globulin Ratio 0.7 L Lipase 95 TSH 2.080 SARS-CoV-2, RNA, NAAT 06/28/21 06/28/21 06/28/21 10:44 10:50 11:30 WBC RBC Hgb POC Hgb 15.0 Hct POC Hct 44 MCV MCH MCHC RDW Std Deviation RDW Coeff of Christian Plt Count MPV Immature Gran % (Auto) Neut % (Auto) Lymph % (Auto) Bartholomew % (Auto) Eos % (Auto) Baso % (Auto) Neut # (Auto) Lymph # (Auto) Bartholomew # (Auto) Eos # (Auto) Baso # (Auto) Immature Gran # (Auto) PT INR APTT PTT Ratio Activ Coag Time Kaolin 291 H POC Sodium 139 Sodium POC Potassium 3.3 Potassium POC Chloride 100 L Chloride Carbon Dioxide POC Total CO2 27 Anion Gap POC Anion Gap 16.0 POC BUN 9 BUN Creatinine POC Creatinine 0.6 Est Cr Clr Drug Dosing Est GFR ( Amer) Est GFR (Non-Af Amer) BUN/Creatinine Ratio Glucose POC Glucose (other) 183 H Calcium POC Ioniz Calcium Mike 1.15 Magnesium Total Bilirubin AST ALT Alkaline Phosphatase Total Creatine Kinase CK-MB (CK-2) CK/CKMB % Calc Troponin I Total Protein Albumin Globulin Albumin/Globulin Ratio Lipase TSH SARS-CoV-2, RNA, NAAT NEGATIVE Diagnostic Findings CXR 06/27/21: Lower lung volume loss is again noted. There is no pneumothorax or pleural effusion. Cardiomediastinal silhouette is stable. Diffuse interstitial thickening is similar to prior exam. This favors interstitial lung disease. No superimposed consolidation is identified. IMPRESSION: -- No significant change in interstitial thickening suggestive of interstitial lung disease. -- No superimposed consolidation is identified. Medications Administered Medications letrozole 2.5 mg tablet 2.5 mg PO HS 05/08/18 [History Confirmed 04/26/21] vitamins A,C,W-ugdw-fekdnf 7,160 unit-113 mg-100 unit tablet (PreserVision AREDS) 1 tab PO BID 09/15/19 [History Confirmed 04/26/21] ipratropium 0.5 mg-albuterol 3 mg (2.5 mg base)/3 mL nebulization soln 3 ml INH QID PRN #180 ml 11/16/20 [Rx Confirmed 04/26/21] chlorpheniramine maleate 4 mg tablet 4 mg PO Q12H PRN #40 tab 01/03/21 [Rx Confirmed 03/28/21] nebulizer accessories #1 ea 01/04/21 [Rx Confirmed 04/26/21] nebulizers #1 ea 01/04/21 [Rx Confirmed 04/26/21] sodium chloride 0.65 % nasal spray aerosol ([place] Nasal) 2 spray INTRANASAL QID PRN #60 ml 02/05/21 [Rx Confirmed 04/26/21] pantoprazole 40 mg tablet,delayed release 40 mg PO DAILY #30 tab 02/12/21 [Rx Confirmed 04/26/21] pseudoephedrine HCl 120 mg tablet,extended release 120 mg PO DAILY 02/18/21 [History Confirmed 04/26/21] fluticasone furoate 100 mcg-vilanterol 25 mcg/dose inhalation powder (Breo Ellipta) 1 inh INHALATION DAILY #60 ea 03/20/21 [Rx Confirmed 04/26/21] albuterol sulfate 90 mcg/actuation aerosol inhaler (Ventolin HFA) 2 puff INH Q6H PRN #18 g 03/29/21 [Rx Confirmed 04/26/21] nintedanib 150 mg capsule 150 mg PO BID #60 cap 04/04/21 [Rx Confirmed 04/26/21] meclizine 12.5 mg tablet 12.5 mg PO TID PRN #90 tab 05/08/21 [Rx] potassium chloride 10 mEq tablet,extended release (Klor-Con) 10 meq PO DAILY #30 tab 05/24/21 [Rx] fluticasone propionate 50 mcg/actuation nasal spray,suspension (Flonase Allergy Relief) 2 spray INTRANASAL DAILY #15.8 ml 06/18/21 [Rx] furosemide 20 mg tablet (Lasix) 20 mg PO DAILY 30 Days #30 tab 06/19/21 [Rx] Home Medications Acetaminophen (Acetaminophen 325 Mg Tab) 650 mg PO Q4H PRN PRN Reason: MILD Pain (Scale 1,2,3) Stop: 07/28/21 12:40 Aspirin (Aspirin 81 Mg Ectab) 81 mg PO [facility] Stop: 07/29/21 08:59 Atorvastatin Calcium (Atorvastatin 40 Mg Tab) [facility] Stop: 07/29/21 08:59 Clopidogrel Bisulfate (Clopidogrel Bisulfate 75 Mg Tab) [facility] Stop: 07/29/21 08:59 Sodium Chloride (Nss 1000ml) 1,000 mls @ 100 mls/hr IV .Q10H [facility] Stop: 06/28/21 17:44 Lisinopril (Lisinopril 5 Mg Tab) 5 mg PO QAM [facility] Stop: 07/29/21 08:59 Metoprolol Tartrate (Metoprolol Tartrate 25 Mg Tab) 12.5 mg PO TID [facility] Stop: 07/28/21 13:59 Nitroglycerin (Nitroglycerin Sl 0.4 Mg/Tab Tab) 0.4 mg SL PRN PRN PRN Reason: Chest Pain Stop: 07/28/21 12:40 Ondansetron HCl (Ondansetron Inj 2 Mg/Ml 2 Ml Vial) 4 mg IV Q6H PRN PRN Reason: Nausea And Vomiting Stop: 07/28/21 12:40 Code Status & VTE Plan Code Status Full Code VTE Prophylaxis Plan VTE Prophylaxis will be ordered: Yes Supervising Physician Co-Signing Physician Notes I personally saw and examined the patient. I verified all kern points and agree with Son Castellanos PA-C with the following exceptions and/or additions: 75 year old female with typical cardiac sounding chest pain starting this morning. Patient was seen by myself following cardiac catheterization and she is now completely pain free. Culprit vessel 1st diagonal stenosis acute ostial with lateral STEMI 99% occluded, additional severe proximal to mid diffuse LAD disease at bifurcation to 1st diagonal. Successful PCI with x2 YAMILA to 1st diagonal and x1 YAMILA to LAD. O/E No acute distress, HS1+2, no murmurs, Chest CTAB, Abdo SNT, no pedal edema. A/P STEMI - admit to ICU, aspirin, clopidogrel, metoprolol, losartan, atorvastatin. Appreciate ongoing cardiology management Otherwise treatment as above PG Care Time/CCT Total # of Minutes Spent Total Time Spent with Patient: Total time spent is greater than 50% in coordination of care (as documented) at patient's floor/unit and/or counseling patient:63 Coding Level of Care Code 40652 Initial Inpt Care Lvl 3 Diagnoses STEMI (ST elevation myocardial infarction) I21.3 Dyslipidemia E78.5 IPF (idiopathic pulmonary fibrosis) J84.112 Dyspnea R06.00 Chronic obstructive pulmonary disease, unspecified J44.9 COPD type: unspecified COPD Chronic respiratory failure with hypoxia J96.11 Nocturnal oxygen desaturation G47.34 Hypokalemia E87.6 Elevated blood sugar R73.9 Time Spent (min) 80 (1) Chronic obstructive pulmonary disease, unspecified COPD type: unspecified COPD Qualified Code(s): J44.9 - Chronic obstructive pulmonary disease, unspecified
--- NOTE | 2021-06-28 11:10 | Emergency Department Note ---
Impression & Plan STEMI (ST elevation myocardial infarction), IPF (idiopathic pulmonary fibrosis), Substernal chest pain ED Provider Note NAME: REBECCA GIBBS AGE: 75 SEX: F ARRIVES VIA: Ambulance INFORMANT: Patient ED PROVIDER(S): Miles Eaton MD CHIEF COMPLAINT: Chest pain PLAN: Disposition: STEMI. MEDICAL DECISION MAKING: The patient is a pleasant 75-year-old woman with a past medical history of idiopathic pulmonary fibrosis on home O2, 2 L nasal cannula, COPD who presents to the emergency department via EMS for acute onset substernal chest pain that a woke her from sleep at 9 AM with associated lightheadedness nausea. Per my discussion with EMS on medical command call and review the patient's EKG which demonstrated ST elevation in leads I and aVL with depressions in leads III and aVF a heart alert was activated. Prior EKGs were reviewed and changes today are new. Patient had taken 4 baby aspirin. She had been given nitroglycerin by EMS. Patient denies any recent fevers, cough, congestion, GI or symptoms. She reports her chronic shortness of breath did become acutely worse last night. On arrival the patient is uncomfortable appearing, diaphoretic with afebrile with stable vital signs. EKG again demonstrates ST elevation in leads I and aVL with ST depression in leads III and aVF. CXR unchanged from prior. WBC, H/H and platelets within normal limits. Chemistry without metabolic acidosis. Patient was given 180 mg of ticagrelor and 5000 units of heparin. She was given fentanyl for pain. Daughter at the bedside was updated. Dr. Carrillo, Interventional cardiology, evaluated patient at the bedside. Patient taken to skilled laborer. Triage Nursing notes reviewed and agree them. Prior medical records reviewed Vital Signs: reviewed and remarkable for no significant abnormalities Differential diagnosis: Cardiac ischemia, aortic dissection, pulmonary embolism, pneumothorax, pneumonia, pericarditis, myocarditis, esophageal rupture, GERD, cholecystitis, pancreatitis, musculoskeletal, as well as other pathologies. ER treatment provided: See below. Diagnostics interpreted by me: ECG: NSR, 73 bpm, no ectopy, ST elevation in leads I and aVL with ST depression in leads III and aVF. Cardiac Monitoring: An order for continuous cardiac monitoring was placed and demonstrated normal sinus rhythm, 70 bpm, no ectopy. Laboratory studies: See below Imaging studies: See below Consultation(s): Dr. Carrillo, interventional cardiology. Case was d/w Dr. Yu, [facility] hospital[place], [facility] to evaluate the patient for admission following skilled laborer. HPI: The patient is a pleasant 75-year-old woman with a past medical history of idiopathic pulmonary fibrosis on home O2, 2 L nasal cannula, COPD who presents to the emergency department via EMS for acute onset substernal chest pain that awoke her from sleep at 9 AM with associated lightheadedness nausea. Per my discussion with EMS on medical command call and review the patient's EKG which demonstrated ST elevation in leads I and aVL with depressions in leads III and aVF a heart alert was activated. Prior EKGs were reviewed and changes today are new. Patient had taken 4 baby aspirin. She had been given nitroglycerin by EMS. Patient denies any recent fevers, cough, congestion, GI or symptoms. She reports her chronic shortness of breath did become acutely worse last night. ROS: See above HPI for pertinent positives & negatives. A total of 10 systems reviewed and were otherwise negative. PAST MEDICAL HISTORY:See Below PAST SURGICAL HISTORY:See Below FAMILY HISTORY:See Below SOCIAL HISTORY:See Below HOME MEDICATIONS:See Below ALLERGIES:See Below VITALS:See Below PHYSICAL EXAMINATION: GENERAL: Awake, alert, uncomfortable/ill-appearing, in no distress HENT: Normocephalic, atraumatic. Oropharynx with dry mucous membranes and otherwise unremarkable. EYES: Normal conjunctiva. Sclera non-icteric. NECK: Supple. No nuchal rigidity. FROM. No JVD. RESPIRATORY: Clear to auscultation. CARDIAC: Regular rate, normal rhythm. Extremities warm and well perfused. Pulses equal. ABDOMEN: Soft, non-distended. No tenderness to palpation. No rebound or guarding. No masses. RECTAL: Deferred. MUSCULOSKELETAL: Chest examination reveals no tenderness. The back is symmetrica l on inspection without obvious abnormality. There is no CVA tenderness to palpation. No joint edema. LOWER EXTREMITIES: Calves are equal size bilaterally and non-tender. No edema. No discoloration. NEURO: Normal sensorium. No sensory or motor deficits noted. SKIN: Diaphoretic. No rash or jaundice noted. ED COURSE: Critical Care: I have personally spent greater than 35 minutes of critical care time in the direct management of this patient. This includes bedside care, interpretation of diagnostic studies, and testing, discussion with consultants, patient, and family members, and other required patient management activities. This 35 minutes is in excess of all separately billable procedures. Miles Eaton MD Past Med/Surg History Medical History Chronic cough Chronic sinusitis Hearing deficit LEFT SIDE MORE History of breast cancer LEFT BREAST>RADIATION Hypokalemia Interstitial lung disease Invasive ductal carcinoma of breast Invasive ductal carcinoma of breast, female IPF (idiopathic pulmonary fibrosis) FOLLOWS WITH DR. NUNEZ IPF (idiopathic pulmonary fibrosis) Liver enzyme elevation IPF THERAPY RECENTLY CHANGED DUE TO LFT ELEVATION; LFT HAVE NOT BEEN RECHECKED SINCE MEDICATION CHANGE. Nocturnal oxygen desaturation O2 2L HS Obesity On home oxygen therapy 2L AT HS AND PRN DAILY IF O2 SATS DROP Pencilling of stools Pneumonia UIP (usual interstitial pneumonitis) HOSPITALIZED WITH BACTERIAL PNUEMONIA 08/16-08/18 Surgical History History of bronchoscopy History of cataract surgery RT/LEFT History of cholecystectomy (~2004) History of colonoscopy (12/31/16) [facility], Dr Delong, small polyp removed, repeat in 5 years recommended History of colonoscopy (01/21/20) Dr. Foley, normal, recheck not recommended due to age History of lung biopsy History of surgery BENIGN DERMOID CYST EXCSION with bilt oopherectomy History of tonsillectomy and adenoidectomy (~195) Status post left breast lumpectomy (~12/31/17) LEFT PARTIAL BREAST MASTECTOMY WITH LNB= 12/31/17= LMA#4 AT [facility] Family History Mother Family history of diabetes mellitus Sister Family history of diabetes mellitus Family/Other Family history of diabetes mellitus CHILDREN Denies family history of Ovarian cancer Prostate cancer Myocardial infarction Breast cancer Colorectal cancer Social History Smoking Status: Never smoker Second Hand Exposure: Yes ( A CHILD); Hx Alcohol Use: No Hx Substance Use: No Preferred Language: Belarusian Communication Ability: Effective Visual Impairment: No Limitations Hearing Ability: Normal Council Member Required: No Beliefs That Will Affect Care: None marital status: Current Living Situation: Alone current occupational status: retired Other Information That Helps Us Care for You: No Feels Safe at Home: Yes Safety Concerns: Feels Safe At This Time Dental Care, Regularly: Yes Physical Activity Frequency: Does not Exercise Seatbelt Use: always Assistive Devices: Oxygen - Continuous Allergies Allergies Allergy/AdvReac Type Severity Reaction Status Date / Time No Known Allergies Allergy Verified 04/26/21 13:37 Home Meds Home Medications Medication Instructions Recorded Confirmed letrozole 2.5 mg tablet 2.5 mg PO HS 05/08/18 04/26/21 vitamins A,C,L-[id number] 7,160 1 tab PO BID 09/15/19 04/26/21 unit-113 mg-100 unit tablet (PreserVision AREDS) pseudoephedrine HCl 120 mg 120 mg PO DAILY 02/18/21 04/26/21 tablet,extended release Previous Rx's Medication Instructions Recorded ipratropium 0.5 mg-albuterol 3 mg 3 ml INH QID PRN #180 ml 11/16/20 (2.5 mg base)/3 mL nebulization soln chlorpheniramine maleate 4 mg 4 mg PO Q12H PRN #40 tab 01/03/21 tablet nebulizer accessories #1 ea 01/04/21 nebulizers #1 ea 01/04/21 sodium chloride 0.65 % nasal spray 2 spray INTRANASAL QID PRN #60 ml 02/05/21 aerosol ([place] Nasal) pantoprazole 40 mg tablet,delayed 40 mg PO DAILY #30 tab 02/12/21 release fluticasone furoate 100 1 inh INHALATION DAILY #60 ea 03/20/21 mcg-vilanterol 25 mcg/dose inhalation powder (Breo Ellipta) albuterol sulfate 90 mcg/actuation 2 puff INH Q6H PRN #18 g 03/29/21 aerosol inhaler (Ventolin HFA) nintedanib 150 mg capsule 150 mg PO BID #60 cap 04/04/21 meclizine 12.5 mg tablet 12.5 mg PO TID PRN #90 tab 05/08/21 potassium chloride 10 mEq 10 meq PO DAILY #30 tab 05/24/21 tablet,extended release (Klor-Con) fluticasone propionate 50 2 spray INTRANASAL DAILY #15.8 ml 06/18/21 mcg/actuation nasal spray,suspension (Flonase Allergy Relief) furosemide 20 mg tablet (Lasix) 20 mg PO DAILY 30 Days #30 tab 06/19/21 Results & Data (ED) Vital Signs Vital Signs - 24 hr 06/28/21 10:40 06/28/21 10:54 06/28/21 10:55 Temperature 36.8 C Temperature Source Oral Pulse Rate 72 Pulse Rate [Apical] 70 Respiratory Rate 22 18 Blood Pressure 141/77 H Blood Pressure [Left Arm] 139/73 Blood Pressure Mean 98 Blood Pressure Mean [Left Arm] 95 Pulse Oximetry 97 100 99 Oxygen Delivery Method Nasal Cannula Nasal Cannula Nasal Cannula Oxygen Flow Rate 2 2 2 Sepsis Recent Fever Within 48 Hours No Sepsis New/Unexplained Change in Mental Status No Sepsis Action Taken by Nursing No Action Required Laboratory Data Attestation: I reviewed the patient's lab results. Result diagrams: 06/28/21 10:43 06/28/21 10:43 Lab Results 06/28/21 06/28/21 06/28/21 Range/Units 10:43 10:43 10:43 WBC 8.52 (4.8-10.8) K/uL RBC 4.79 (4.2-5.4) M/uL Hgb 14.4 (12.0-16.0) g/dL POC Hgb (12.0-16.0) g/dl Hct 43.6 (37-47) % POC Hct (37-47) % MCV 91.0 (80-100) fL MCH 30.1 (25-34) pg MCHC 33.0 (32-36) g/dL RDW Std Deviation 43.7 (36.4-46.3) fL RDW Coeff of Christian 13.1 (11.5-14.5) % Plt Count 209 (130-400) K/uL MPV 10.3 (7.4-10.4) fL Immature Gran % (Auto) 0.1 % Neut % (Auto) 42.6 % Lymph % (Auto) 43.0 % [place] % (Auto) 9.4 % Eos % (Auto) 4.8 % Baso % (Auto) 0.1 % Neut # (Auto) 3.63 (1.4-6.5) K/uL Lymph # (Auto) 3.66 H (1.2-3.4) K/uL [place] # (Auto) 0.80 H (0.11-0.59) K/uL Eos # (Auto) 0.41 (0-0.5) K/uL Baso # (Auto) 0.01 (0-0.2) K/uL Immature Gran # (Auto) 0.01 (0.00-0.02) K/uL PT 10.9 (9.0-12.0) Seconds INR 1.1 (0.9-1.1) APTT 27.3 (21.0-31.0) Seconds PTT Ratio 1.0 Activ Coag Time Kaolin (94-140) SECONDS POC Sodium (135-144) mmol/L Sodium 139 (136-145) mmol/L POC Potassium (3.3-5.0) mmol/L Potassium 3.2 L (3.5-5.1) mmol/L POC Chloride (101-112) mmol/L Chloride 105 (98-107) mmol/L Carbon Dioxide 26 (21-32) mmol/L POC Total CO2 (24-31) mmol/L Anion Gap 8.0 (3-11) POC Anion Gap (16-25) mmol/L POC BUN (7-18) mg/dl BUN 9 (7-18) mg/dl Creatinine 0.80 (0.6-1.2) mg/dl POC Creatinine (0.6-1.3) mg/dl Est Cr Clr Drug Dosing 66.8 ml/min Est GFR ( Amer) 84.8 ml/min Est GFR (Non-Af Amer) 73.1 ml/min BUN/Creatinine Ratio 11.2 (10-20) Glucose 185 H (70-99) mg/dl POC Glucose (other) (70-99) mg/dl Calcium 9.6 (8.5-10.1) mg/dl POC Ioniz Calcium Mike (1.12-1.32) mmol/l Magnesium 1.9 (1.8-2.4) mg/dl Total Bilirubin 0.5 (0.2-1) mg/dl AST 23 (15-37) U/L ALT 30 (12-78) Alkaline Phosphatase 171 H (45-117) U/L Total Creatine Kinase 59 (26-192) U/L CK-MB (CK-2) < 1.0 (0.5-3.6) ng/ml CK/CKMB % Calc TNP Troponin I 0.043 (0-0.045) ng/ml Total Protein 7.3 (6.4-8.2) gm/dl Albumin 3.1 L (3.4-5.0) gm/dl Globulin 4.2 H (2.5-4.0) gm/dl Albumin/Globulin Ratio 0.7 L (0.9-2) Lipase 95 (73-393) U/L TSH 2.080 (0.300-4.500) uIu/ml SARS-CoV-2, RNA, NAAT (NEGATIVE) 06/28/21 06/28/21 06/28/21 Range/Units 10:44 10:50 11:30 WBC (4.8-10.8) K/uL RBC (4.2-5.4) M/uL Hgb (12.0-16.0) g/dL POC Hgb 15.0 (12.0-16.0) g/dl Hct (37-47) % POC Hct 44 (37-47) % MCV (80-100) fL MCH (25-34) pg MCHC (32-36) g/dL RDW Std Deviation (36.4-46.3) fL RDW Coeff of Christian (11.5-14.5) % Plt Count (130-400) K/uL MPV (7.4-10.4) fL Immature Gran % (Auto) % Neut % (Auto) % Lymph % (Auto) % [place] % (Auto) % Eos % (Auto) % Baso % (Auto) % Neut # (Auto) (1.4-6.5) K/uL Lymph # (Auto) (1.2-3.4) K/uL [place] # (Auto) (0.11-0.59) K/uL Eos # (Auto) (0-0.5) K/uL Baso # (Auto) (0-0.2) K/uL Immature Gran # (Auto) (0.00-0.02) K/uL PT (9.0-12.0) Seconds INR (0.9-1.1) APTT (21.0-31.0) Seconds PTT Ratio Activ Coag Time Kaolin 291 H (94-140) SECONDS POC Sodium 139 (135-144) mmol/L Sodium (136-145) mmol/L POC Potassium 3.3 (3.3-5.0) mmol/L Potassium (3.5-5.1) mmol/L POC Chloride 100 L (101-112) mmol/L Chloride (98-107) mmol/L Carbon Dioxide (21-32) mmol/L POC Total CO2 27 (24-31) mmol/L Anion Gap (3-11) POC Anion Gap 16.0 (16-25) mmol/L POC BUN 9 (7-18) mg/dl BUN (7-18) mg/dl Creatinine (0.6-1.2) mg/dl POC Creatinine 0.6 (0.6-1.3) mg/dl Est Cr Clr Drug Dosing ml/min Est GFR ( Amer) ml/min Est GFR (Non-Af Amer) ml/min BUN/Creatinine Ratio (10-20) Glucose (70-99) mg/dl POC Glucose (other) 183 H (70-99) mg/dl Calcium (8.5-10.1) mg/dl POC Ioniz Calcium Mike 1.15 (1.12-1.32) mmol/l Magnesium (1.8-2.4) mg/dl Total Bilirubin (0.2-1) mg/dl AST (15-37) U/L ALT (12-78) Alkaline Phosphatase (45-117) U/L Total Creatine Kinase (26-192) U/L CK-MB (CK-2) (0.5-3.6) ng/ml CK/CKMB % Calc Troponin I (0-0.045) ng/ml Total Protein (6.4-8.2) gm/dl Albumin (3.4-5.0) gm/dl Globulin (2.5-4.0) gm/dl Albumin/Globulin Ratio (0.9-2) Lipase (73-393) U/L TSH (0.300-4.500) uIu/ml SARS-CoV-2, RNA, NAAT NEGATIVE (NEGATIVE) Administered Medications Atorvastatin Calcium ([facility]orvastatin 40 Mg Tab) [facility] Stop: 07/28/21 18:11 Last Admin: 06/28/21 20:23 Dose: 80 mg Documented by: [id number] Letrozole (Letrozole 2.5 Mg Tab) 2.5 mg PO HS [facility] Stop: 07/28/21 20:59 Last Admin: 06/28/21 20:23 Dose: 2.5 mg Documented by: [id number] Cosigned by: [id number] Metoprolol Tartrate (Metoprolol Tartrate 25 Mg Tab) 12.5 mg PO TID [facility] Stop: 07/28/21 20:59 Last Admin: 06/28/21 20:24 Dose: 12.5 mg Documented by: [id number] Miscellaneous (Nintedanib 150 Mg Capsule~Order Awaiting Action) 1 ea N/A QS [facility] Stop: 07/29/21 00:00 Last Admin: 06/29/21 00:51 Dose: Not Given Documented by: [id number] Miscellaneous (Chlorpheniramine Maleate 4 Mg Tab~Order Awaiting Action) 1 ea N/A [facility] Stop: 07/29/21 00:00 Last Admin: 06/29/21 00:51 Dose: Not Given Documented by: [id number] Ticagrelor (Ticagrelor 90 Mg Tab) 90 mg PO BID [facility] Stop: 07/28/21 20:59 Last Admin: 06/28/21 20:25 Dose: 90 mg Documented by: [id number] Discontinued Medications Clopidogrel Bisulfate (Clopidogrel Bisulfate 300 Mg Tab) Confirm Administered Dose 600 mg .ROUTE .STK-MED ONE Stop: 06/28/21 11:45 Last Admin: 06/28/21 11:53 Dose: 600 mg Documented by: [id number] Fentanyl Citrate (Fentanyl Citrate 100 Mcg/2 Ml Vial) Confirm Administered Dose 100 mcg .ROUTE .STK-MED ONE Stop: 06/28/21 10:39 Last Admin: 06/28/21 11:51 Dose: 25 mcg Documented by: [id number] Fentanyl Citrate (Fentanyl Citrate 100 Mcg/2 Ml Vial) 50 mcg IV NOW STA Stop: 06/28/21 10:51 Last Admin: 06/28/21 10:52 Dose: 50 mcg Documented by: [id number] Fentanyl Citrate (Fentanyl Citrate 100 Mcg/2 Ml Vial) Confirm Administered Dose 100 mcg .ROUTE .STK-MED ONE Stop: 06/28/21 10:52 Last Admin: 06/28/21 11:01 Dose: Not Given Documented by: [id number] Heparin Sodium (Porcine) (Heparin (Porcine) 1000 Unit/Ml 10 Ml (Commercial Airline Pilot Use Only)) Confirm Administered Dose 10,000 units .ROUTE .STK-MED ONE Stop: 06/28/21 10:39 Last Admin: 06/28/21 11:52 Dose: 3,000 units Documented by: [id number] Heparin Sodium (Porcine) (Heparin Sod (Porcine) 1000 Unit/Ml) 5,000 units IV NOW ONE Stop: 06/28/21 10:53 Last Admin: 06/28/21 10:59 Dose: 5,000 units Documented by: [id number] Cosigned by: [id number] Heparin Sodium/Sodium Chloride (Heparin In Nss Infusion 1000 Unit/500 Ml (2 U/Ml) Bag) Confirm Administered Dose 3,000 units IV .STK-MED ONE Stop: 06/28/21 10:39 Last Admin: 06/28/21 11:52 Dose: 3,000 units Documented by: [id number] Sodium Chloride (Nss 1000ml) 1,000 mls @ 100 mls/hr IV .Q10H DRAKE Stop: 06/28/21 17:44 Last Admin: 06/28/21 18:26 Dose: Not Given Documented by: [id number] Midazolam HCl (Midazolam Hcl 1 Mg/Ml 2ml Vial) Confirm Administered Dose 2 mg .ROUTE .STK-MED ONE Stop: 06/28/21 10:39 Last Admin: 06/28/21 11:52 Dose: 1 mg Documented by: [id number] Nicardipine HCl (Nicardipine Hcl Inj 2.5 Mg/Ml 10 Ml Amp) Confirm Administered D ose 25 mg .ROUTE .STK-MED ONE Stop: 06/28/21 10:39 Last Admin: 06/28/21 11:53 Dose: 25 mg Documented by: [id number] Nitroglycerin/Dextrose (Nitroglycerin/D5w 100mcg/Ml 20ml Syr) Confirm Admi nistered Dose 2,000 mcg .ROUTE .STK-MED ONE Stop: 06/28/21 10:39 Last Admin: 06/28/21 11:53 Dose: 2,000 mcg Documented by: [id number] Potassium Chloride (Potassium Chloride Crtab 20 Meq Tabcr) 20 meq PO NOW ONE Stop: 06/28/21 11:29 Last Admin: 06/28/21 13:46 Dose: 20 meq Documented by: [id number] Ticagrelor (Ticagrelor 90 Mg Tab) 180 mg PO NOW STA Stop: 06/28/21 10:53 Last Admin: 06/28/21 11:53 Dose: Not Given Documented by: [id number] Imaging Data Radiologist's Impression: Chest X-Ray 06/28/21 10:39 XR chest 1V portable CLINICAL HISTORY: Atypical chest pain. COMPARISON STUDY: Chest CT December 28, 2020. Chest radiograph March 28, 2021. FINDINGS: Lower lung volume loss is again noted. There is no pneumothorax or pleural effusion. Cardiomediastinal silhouette is stable. Diffuse interstitial thickening is similar to prior exam. This favors interstitial lung disease. No superimposed consolidation is identified. IMPRESSION: No significant change in interstitial thickening suggestive of interstitial lung disease. No superimposed consolidation is identified. ACT 112: Negative or not required by law. Electronically signed by: Jaron Maloney M.D. 06/28/2021 11:12 AM Discharge Plan Visit Data Chief Complaint: Heart Alert Stated Complaint: CHEST PAIN ED Provider: Miles Eaton Discharge Problem: STEMI (ST elevation myocardial infarction), IPF (idiopathic pulmonary fibrosis), Substernal chest pain Patient Disposition: Admitted As Inpatient Discharge Instructions Interventions: ED Discharge Assessment Last Done: 06/28/21 11:01 Discharge Problem: STEMI (ST elevation myocardial infarction) Qualifiers: Involved coronary artery: unspecified coronary artery Qualified Code(s): I21.3 - ST elevation (STEMI) myocardial infarction of unspecified site
[2021-06-28 11:11] LABS: INR 1.1 (0.9-1.1); Partial Thromboplastin Time 27.3 Seconds (21.0-31.0); Prothrombin Time 10.9 Seconds (9.0-12.0)
--- NOTE | 2021-06-28 11:14 | XRay Report ---
XR chest 1V portable CLINICAL HISTORY: Atypical chest pain. COMPARISON STUDY: Chest CT December 28, 2020. Chest radiograph March 28, 2021. FINDINGS: Lower lung volume loss is again noted. There is no pneumothorax or pleural effusion. Cardio mediastinal silhouette is stable. Diffuse interstitial thickening is similar to prior exam. This favo rs interstitial lung disease. No superimposed consolidation is identified. IMPRESSION: No significant change in interstitial thickening suggestive of interstitial lung disease . No superimposed consolidation is identified. ACT 112: Negative or not required by law. Electronically signed by: Jaron Maloney M.D. 06/28/2021 11:12 AM
[2021-06-28 11:19] LABS: Alanine Aminotransferase 30 (12-78); Albumin Level 3.1 gm/dl (3.4-5.0); Aspartate Aminotransferase 23 U/L (15-37); BUN Creatinine Ratio 11.2 (10-20); Blood Urea Nitrogen 9 mg/dl (7-18); Calcium 9.6 mg/dl (8.5-10.1); Carbon Dioxide 26 mmol/L (21-32); Chloride 105 mmol/L (98-107); Creatinine Clr Calc Pharmacy 66.8 ml/min; Est GFR (African American) 84.8 ml/min; Est GFR (Non-African American) 73.1 ml/min; Glucose 185 mg/dl (70-99); Lipase 95 U/L (73-393); Magnesium 1.9 mg/dl (1.8-2.4); Potassium 3.2 mmol/L (3.5-5.1); Sodium 139 mmol/L (136-145)
[2021-06-28 11:21] LABS: Bilirubin,Total 0.5 mg/dl (0.2-1)
[2021-06-28] MEDS ORDERED: POTASSIUM CHLORIDE CRTAB 20 MEQ TABCR PO ONE (11:28)
[2021-06-28 11:30] LABS: Albumin Globulin Ratio 0.7 (0.9-2); Alkaline Phosphatase 171 U/L (45-117); Creatine Kinase 59 U/L (26-192); Creatine Kinase MB < 1.0 ng/ml (0.5-3.6); Globulin 4.2 gm/dl (2.5-4.0); Total Protein 7.3 gm/dl (6.4-8.2); Troponin I 0.043 ng/ml (0-0.045)
[2021-06-28] MEDS ORDERED: CLOPIDOGREL BISULFATE 300 MG TAB ONE (11:44)
--- NOTE | 2021-06-28 12:31 | Pre Anesthesia Assessment ---
Date of Service June 28, 2021 Pre Sedation Assessment Vital Signs Temp Pulse Pulse Resp BP BP Pulse Ox 06/28/21 10:55 70 18 139/73 99 06/28/21 10:54 100 06/28/21 10:40 98.2 F 72 22 141/77 H 97 Cardiovascular RRR, no murmur, no edema Respiratory + labored breathing Pre-Sedation Airway Assessment Smoking Status: Never smoker Hx Sleep Apnea: No Hx Difficult Intubation: No Thyromental Distance: > or= 3.5 Finger Breadths Oral Cavity: + Dental Abnormalities Mallampati Class: III ASA: ASA4 Procedure Planning Contraindications for Sedation: none Current Medications Reviewed: Yes Notes The planned sedation has been discussed with the patient. Informed Consent was obtained. I have identified the patient, determined the appropriateness of sedation and have assessed the patient immediately prior to the procedure. All medicine(s) and interventions are by my order.
--- NOTE | 2021-06-28 12:32 | Post Anesthesia Assessment ---
Date of Service June 28, 2021 Post Sedation Assessment Vital Signs Temp Pulse Pulse Resp BP BP Pulse Ox 06/28/21 12:27 64 20 130/73 98 06/28/21 10:55 70 18 139/73 99 06/28/21 10:54 100 06/28/21 10:40 98.2 F 72 22 141/77 H 97 Recovery Score Activity: Moves 4 extremities Respiration: Deep Breath/Cough Circulation: +/-20% PreAnes Value Consciousness: Fully Awake Oxygen Saturation: O2 needed for >90% Post Anesthesia Score: 9 Discharge Sedation Level of Care: Fast Track Phase II Post Sedation Plan On clinical assessment, the patient appears to have tolerated the sedation without complications. Patient is recovering as anticipated. Patient will continue to be monitored by nursing and may be discharged when sedation discharge criteria are met per below protocol. Upon Completions of procedure up to 15 minutes continue every 5 minute vital signs and the P.A.R. score; then discharge to a Phase I or Fast Track to Phase II per the following guidelines: * Discharge Patient to appropriate Phase II area if PAR is 8 or greater or return to pre- procedure baseline. The post - procedure orders will be as directed. * If PAR score is less than 8 or not return to pre-procedure baseline then patient will follow Phase I monitoring till PAR is reached for Phase II. The Phase I may be done in procedure room or may call to secure a Phase I area. * If naloxone or flumazenil are used for reversal, hold in Phase I for continued monitoring from when last reversal dose was given for a minimum of 60 minutes or longer pending the nurse and/or physician discretion of patient condition before discharge to Phase II. Please call the Sedation Physician to re-evaluate and complete post-note for discharge to Phase II area. Do NOT discharge from procedure sedation or Phase 1 until post- sedation evaluation note is complete by procedure /sedation MD Sedation Discharge Instructions to be given to the patient at discharge to home.
[2021-06-28] MEDS ORDERED: ONDANSETRON INJ 2 MG/ML 2 ML VIAL IV PRN (12:41)
[2021-06-28] MEDS ORDERED: ACETAMINOPHEN 325 MG TAB PO PRN (12:41)
[2021-06-28] MEDS ORDERED: NITROGLYCERIN SL 0.4 MG/TAB TAB SL PRN (12:41)
--- NOTE | 2021-06-28 12:41 | Cardiology Consultation ---
Date of Consultation June 28, 2021 Assessment & Plan (1) STEMI (ST elevation myocardial infarction): Presentation consistent with lateral STEMI and recommend proceeding with emergent cardiac catheterization and likely primary PCI. No apparent contraindications to procedure. Discussed risks, benefits, alternatives of procedure with patient and they are willing to proceed. Further recommendations pending findings of coronary angiography. History of Present Illness Attending Physician: Dewey Carrillo MD History of Present Illness 75-year-old woman here with acute chest pain and ECG concerning for acute [place]. Patient seen emergently in the ED after heart alert activated en route. Patient has a history of IPF on 2 L chronic O2. History of left breast cancer post lumpectomy, adjuvant RT and hormonal therapy. Also with a history of lower extreme edema on Lasix. No prior cardiac history. Most recent echo 03/2021 showed preserved LV function with no pulmonary hypertension. Cardiac risk factors include dyslipidemia. Chest pain began approximately 9 AM this morning after waking. Pain persisted and radiated down her arms. Pain for approximately an hour and a half prior to arrival. ECG in route showed lateral ST elevations. In ED after nitro chest pain down from 8 out of 10 down to 5-10. Her breathing was labored although O2 sats in high 90s. She had intermittent idiopathic ventricular rhythm, ventricular ectopy on monitor. ECG again showed lateral ST elevations. Allergies Allergy/AdvReac Type Severity Reaction Status Date / Time No Known Allergies Allergy Verified 04/26/21 13:37 Home Medications Medication Instructions Recorded Confirmed Type letrozole 2.5 mg tablet 2.5 mg PO HS 05/08/18 04/26/21 History vitamins A,C,O-diez-groter 7,160 1 tab PO BID 09/15/19 04/26/21 History unit-113 mg-100 unit tablet (PreserVision AREDS) ipratropium 0.5 mg-albuterol 3 mg 3 ml INH QID PRN #180 ml 11/16/20 04/26/21 Rx (2.5 mg base)/3 mL nebulization soln chlorpheniramine maleate 4 mg 4 mg PO Q12H PRN #40 tab 01/03/21 03/28/21 Rx tablet nebulizer accessories #1 ea 01/04/21 04/26/21 Rx nebulizers #1 ea 01/04/21 04/26/21 Rx sodium chloride 0.65 % nasal spray 2 spray INTRANASAL QID PRN #60 ml 02/05/21 04/26/21 Rx aerosol ([place] Nasal) pantoprazole 40 mg tablet,delayed 40 mg PO DAILY #30 tab 02/12/21 04/26/21 Rx release pseudoephedrine HCl 120 mg 120 mg PO DAILY 02/18/21 04/26/21 History tablet,extended release fluticasone furoate 100 1 inh INHALATION DAILY #60 ea 03/20/21 04/26/21 Rx mcg-vilanterol 25 mcg/dose inhalation powder (Breo Ellipta) albuterol sulfate 90 mcg/actuation 2 puff INH Q6H PRN #18 g 03/29/21 04/26/21 Rx aerosol inhaler (Ventolin HFA) nintedanib 150 mg capsule 150 mg PO BID #60 cap 04/04/21 04/26/21 Rx meclizine 12.5 mg tablet 12.5 mg PO TID PRN #90 tab 05/08/21 Rx potassium chloride 10 mEq 10 meq PO DAILY #30 tab 05/24/21 Rx tablet,extended release (Klor-Con) fluticasone propionate 50 2 spray INTRANASAL DAILY #15.8 ml 06/18/21 Rx mcg/actuation nasal spray,suspension (Flonase Allergy Relief) furosemide 20 mg tablet (Lasix) 20 mg PO DAILY 30 Days #30 tab 06/19/21 Rx Patient History Medical History Chronic cough Chronic sinusitis Hearing deficit LEFT SIDE MORE History of breast cancer LEFT BREAST>RADIATION Hypokalemia Interstitial lung disease Invasive ductal carcinoma of breast Invasive ductal carcinoma of breast, female IPF (idiopathic pulmonary fibrosis) FOLLOWS WITH DR. NUNEZ IPF (idiopathic pulmonary fibrosis) Liver enzyme elevation IPF THERAPY RECENTLY CHANGED DUE TO LFT ELEVATION; LFT HAVE NOT BEEN RECHECKED SINCE MEDICATION CHANGE. Nocturnal oxygen desaturation O2 2L HS Obesity On home oxygen therapy 2L AT HS AND PRN DAILY IF O2 SATS DROP Pencilling of stools Pneumonia UIP (usual interstitial pneumonitis) HOSPITALIZED WITH BACTERIAL PNUEMONIA 08/16-08/18 Surgical History History of bronchoscopy History of cataract surgery RT/LEFT History of cholecystectomy (~2004) History of colonoscopy (12/31/16) [facility], Dr Delong, small polyp removed, repeat in 5 years recommended History of colonoscopy (01/21/20) Dr. Foley, normal, recheck not recommended due to age History of lung biopsy History of surgery BENIGN DERMOID CYST EXCSION with bilt oopherectomy History of tonsillectomy and adenoidectomy (~1955) Status post left breast lumpectomy (~12/31/17) LEFT PARTIAL BREAST MASTECTOMY WITH LNB= 12/31/17= LMA#4 AT [facility] Family History Mother Family history of diabetes mellitus Sister Family history of diabetes mellitus Family/Other Family history of diabetes mellitus CHILDREN Denies family history of Ovarian cancer Prostate cancer Myocardial infarction Breast cancer Colorectal cancer Social History Smoking Status: Never smoker Second Hand Exposure: Yes ( A CHILD); Hx Alcohol Use: No Hx Substance Use: No Preferred Language: Monegasque Communication Ability: Effective Visual Impairment: No Limitations Hearing Ability: Normal Crop Farmers Required: No Beliefs That Will Affect Care: None marital status: Current Living Situation: Alone current occupational status: retired Feels Safe at Home: Yes Dental Care, Regularly: Yes Physical Activity Frequency: Does not Exercise Seatbelt Use: always Assistive Devices: Glasses and Oxygen - at Night Review of Systems Review of Systems: All systems reviewed & are unremarkable except as noted in HPI & below Physical Exam Physical Exam: General: Labored breathing HEENT: Sclerae anicteric Lungs: Crackles at bases Cardiac: Regular rate and rhythm, no murmurs. Vascular: 2+ radial Abdomen: Soft, nontender Extremities: Well perfused, trace edema, scattered telangiectasias Neuro: Nonfocal Psych: Alert orient x3, normal affect and mood Results & Data ([facility]) Vital Signs (Past 12 Hours) Vital Signs Temp Pulse Pulse Resp BP BP Pulse Ox 06/28/21 12:27 64 20 130/73 98 06/28/21 10:55 70 18 139/73 99 06/28/21 10:54 100 06/28/21 10:40 98.2 F 72 22 141/77 H 97 PG Care Time/CCT Total # of Minutes Spent Total Time Spent with Patient: Total time spent is greater than 50% in coordination of care (as documented) at patient's floor/unit and/or counseling patient: Coding Level of Care Code 46109 Initial Inpt Care Lvl 3 Diagnoses STEMI (ST elevation myocardial infarction) I21.3
[2021-06-28] MEDS ORDERED: SODIUM CHLORIDE 0.9% 1000ML 1,000 ML IV SCH ×2 (12:45→18:12)
--- NOTE | 2021-06-28 12:54 | Cardiac Catheterization ---
ACC Data: Director Of Orthopedics Cardiac Status Clinical evaluation leading to the procedure CAD Presenation: STEMI Anginal Classification: CCS IV Heart Failure: NYHA Class: CCS II Cardiogenic Shock within 24 Hours: No Cardiac Arrest within 24 Hours: No Imaging Studies Past 6 Months: No Stress Studies Past 6 Months: No Diagnostic Physicians Name: Dewey Carrillo MD Status: Emergency Closure Device Percutaneous Entry Location: Radial Closure Device: Radial Band Recommendations: PCI without planned CABG PCI Indication: Immediate PCI for STEMI First Noted: First EKG Lesion Segment Name: Ostial diagonal Culprit Artery: Yes Stenosis Prior to Rx (%): 99 Chronic Total Occlusion: No IVUS: No FFR: No Pre-Procedure VERNELL Flow: 2 Previously Treated Lesion: No Lesion Complexity: High/C Lesion Length (mm): 20 Thrombus Present: Yes Bifurcation Lesion: Yes Guidewire Across Lesion: Stenosis Post-Procedure (%): 0 Post-Procedure VERNELL Flow: 3 Devices(s) Deployed: Yes Yes Lesion #2 Segment Name: Mid LAD Culprit Artery: No Stenosis Prior to Rx (%): 75 Chronic Total Occlusion: No IVUS: Yes FFR: No Pre-Procedure VERNELL Flow: 3 Previously Treated Lesion: No Lesion Complexity: Non-High/Non-C Lesion Length (mm): 20 Thrombus Present: No Bifurcation Lesion: Yes Guidewire Across Lesion: Yes Stenosis Post-Procedure (%): 0 Post-Procedure VERNELL Flow: 3 Devices(s) Deployed: Yes Intraprocedure Events Significant Disection: No Perforation: No Cardiac Cath Procedure Full Procedure Date June 28, 2021 Pre-Procedure Diagnosis Pre-Procedure Diagnosis: STEMI AUC Score AUC Score: 9 Post-Procedure Diagnosis Post-Procedure Diagnosis: Severe CAD and Successful PCI Procedure(s) Performed Procedure(s) Performed: Coronary Angiography, Left Heart Cath, Drug Eluting Stent and IVUS Eyelet Maker Dewey Carrillo MD Handle Attacher(s) Braden Estimated Blood Loss Estimated Blood Loss: 15 Medication(s) Medication(s): Clopidogrel, Fentanyl, Heparin, Lidocaine 1%, Nicardipine, Nitroglycerin and Versed Summary of Findings Indication: STEMI/Heart Alert Access: 6 Fr right radial artery Catheters: EBU 3.5 guide, diagnostic JR4 Findings: LM -normal caliber, no significant disease LAD -medium caliber vessel, diffuse proximal to mid disease up to 60% angiographically, remainder of vessel without significant disease, tapers to apex. Medium D1 with acute 99% stenosis and VERNELL II flow. Circumflex -dominant, large caliber, no significant disease. Large OM1, PDA without disease. RCA -nondominant, no significant disease -- PCI -- Antithrombotic therapy: Heparin, clopidogrel Procedure: Left main cannulated with EBU 3.5 guide Boot And Shoe Repairman 50 wire passed across lesion into distal D1 Prowater wire placed into distal LAD Ostial D1 lesion predilated with 2.0 compliant balloon Dilated D1 lesion stented with 2.25 x 15 mm Xience drug-eluting stent placed at ostium Residual stenosis just distal to stent covered with 2nd YAMILA 2.25 x 12 Xience Stents postdilated with stent balloon [place] IVUS catheter placed into mid LAD. Pullback revealed severe mid segment disease (75%, MLA 2.5 mm) with apparent high risk/ruptured plaque at bifurcation Proximal to mid LAD stented with 2.75 x 23 mm Xience drug-eluting stent Diagonal rewired with whisper wire LAD stent postdilated with 3.25 NC Jailed diagonal dilated through stent struts with 2.0 balloon IC vasodilators administered for spasm Post procedure VERNELL 3 flow, stents well expanded with minimal residual stenosis and no apparent cardiac complications. Arterial Closure: TR band Summary: 1. Lateral STEMI/99% acute ostial 1st diagonal stenosis 2. Severe (up to 75% on IVUS) proximal to mid diffuse LAD disease at bifurcation with 1st diagonal 3. Successful PCI of 1st diagonal with 2 overlapping drug-eluting stents (2.25 x 15, 2.25 x 12 mm Xience). 4. Successful PCI of proximal to mid LAD with single drug-eluting stent (2.75 x 23 mm Xience; postdilated with 3.25 NC). Recommendations: Admit to ICU for continued monitoring Loaded with clopidogrel 600 mg in Director Of Orthopedics Continue dual-antiplatelet therapy for at least 1 year. Trend troponins until peak, Check Echo Uptitrate beta-veronica/QUINTON as BP allows High-dose statin Consult cardiac Rehab Hemodynamics Rest Ao:: 104/52/74 Final Ao: 120/58/79 LV: -- Recommendations Recommendations: PCI without planned CABG Specimens Specimens: None Radiation Exposure (mGy) 3378 Contrast (mls) 115 Visipaque Fluids (cc crystalloids) Fluids (cc crystalloids): 130 Drains Drains: None Anesthesia Moderate 8392-9831 Procedural Complication(s) None Disposition ICU I attest to the content of the Intraoperative Record and any orders documented therein. Any exceptions are noted below. [facility] Card Cath Procedure Codes Cardiac Catheterization Procedure 1: Cardiovascular Cath Procedures: 67889 Coronaries Therapeutic Services & Ancillary Proc Procedure 1: Cardiovascular Tx and Anc Procedures: 59408 IV Ultrasound (Coronary or Graft) Moderate Sedation Procedure 1: Sedation/Anesthesia: 80043 Mod Sedation by the same physician;Init15 Min Child Age 5 & Up Procedure 2: Sedation/Anesthesia: 04910 Mod Sedation by the same physician; Ea [id number] Minutes Stenting Procedure 1: Cardiovascular Stent Procedures: 74373 Perc transluminal revascularization of acute sub/total occl, aMI PG Care Time/CCT Total # of Minutes Spent Total Time Spent with Patient: Total time spent is greater than 50% in coordination of care (as documented) at patient's floor/unit and/or counseling patient:
[2021-06-28 16:22] LABS: Chol HDL Ratio 3; Cholesterol 195 mg/dl (0-200); HDL Cholesterol 61 mg/dl; LDL Cholesterol Direct 116 mg/dl; Triglycerides 137 mg/dl (0-150); VLDL Cholesterol 27 mg/dl
--- NOTE | 2021-06-28 17:56 | XCELERA ---
[id number]
[2021-06-28] MEDS ORDERED: SODIUM CHLORIDE 0.65% NA SOLN 45 ML (OCEAN) PRN (18:12)
[2021-06-28] MEDS ORDERED: ALBUT/IPRATROP 3MG/0.5MG NEB 3 ML VIAL INH PRN (18:12)
[2021-06-28] MEDS ORDERED: ALBUTEROL HFA 8 GM INHALER INH PRN (18:12)
[2021-06-28] MEDS ORDERED: ICU PROTOCOL FOR HYPERGLYCEMIA PRN (18:12)
[2021-06-28] MEDS: ATORVASTATIN 40 MG TAB PO SCH (20:23)
[2021-06-28] MEDS: METOPROLOL TARTRATE 25 MG TAB PO SCH (20:24)
[2021-06-28] MEDS ORDERED: NINTEDANIB 150 MG PO SCH (21:00)
[2021-06-28] MEDS ORDERED: LETROZOLE 2.5 MG TAB PO SCH (21:00)
[2021-06-28] MEDS ORDERED: METOPROLOL TARTRATE 25 MG TAB PO SCH (21:00)
[2021-06-28] MEDS ORDERED: TICAGRELOR 90 MG TAB PO SCH (21:00)
[2021-06-29 04:50] LABS: Basophils # (auto) 0.01 K/uL (0-0.2); Basophils % (auto) 0.2 %; Eosinophils # (auto) 0.33 K/uL (0-0.5); Eosinophils % (auto) 5.2 %; Hematocrit (blood only) 41.6 % (37-47); Hemoglobin 13.4 g/dL (12.0-16.0); Lymphocytes # (auto) 1.89 K/uL (1.2-3.4); Lymphocytes % (auto) 29.9 %; Mean Corpuscular Hemoglobin 29.7 pg (25-34); Mean Corpuscular Hgb Conc 32.2 g/dL (32-36); Mean Corpuscular Volume 92.2 fL (80-100); Mean Platelet Volume 10.9 fL (7.4-10.4); Monocytes # (auto) 0.76 K/uL (0.11-0.59); Neutrophils # (auto) 3.33 K/uL (1.4-6.5); Neutrophils % (auto) 52.7 %; Platelet Count 170 K/uL (130-400); RDW Coefficient of Variation 13.4 % (11.5-14.5); RDW Standard Deviation 44.8 fL (36.4-46.3); Red Blood Count 4.51 M/uL (4.2-5.4); White Blood Count 6.32 K/uL (4.8-10.8)
[2021-06-29 05:19] LABS: BUN Creatinine Ratio 18.2 (10-20); Calcium 9.1 mg/dl (8.5-10.1); Creatinine Clr Calc Pharmacy 68.5 ml/min; Est GFR (African American) 87.4 ml/min; Est GFR (Non-African American) 75.4 ml/min; Potassium 4.1 mmol/L (3.5-5.1)
[2021-06-29 07:11] LABS: Estimated Average Glucose 143 mg/dl; Hemoglobin A1C 6.6 % (4.5-5.6)
--- NOTE | 2021-06-29 07:54 | Critical Care Consultation ---
Date of Consultation June 29, 2021 Assessment & Plan (1) STEMI (ST elevation myocardial infarction): (2) IPF (idiopathic pulmonary fibrosis): (3) Chronic respiratory failure with hypoxia: PCI of Diagonal with 2 overlapping drug-eluting stents PCI of proximal to mid LAD with single drug-eluting stent History of Present Illness Attending Physician: Dimas Talley Allergies Allergy/AdvReac Type Severity Reaction Status Date / Time No Known Allergies Allergy Verified 04/26/21 13:37 Home Medications Medication Instructions Recorded Confirmed Type letrozole 2.5 mg tablet 2.5 mg PO HS 05/08/18 04/26/21 History vitamins A,C,K-qqsl-onrepp 7,160 1 tab PO BID 09/15/19 04/26/21 History unit-113 mg-100 unit tablet (PreserVision AREDS) ipratropium 0.5 mg-albuterol 3 mg 3 ml INH QID PRN #180 ml 11/16/20 04/26/21 Rx (2.5 mg base)/3 mL nebulization soln chlorpheniramine maleate 4 mg 4 mg PO Q12H PRN #40 tab 01/03/21 03/28/21 Rx tablet nebulizer accessories #1 ea 01/04/21 04/26/21 Rx nebulizers #1 ea 01/04/21 04/26/21 Rx sodium chloride 0.65 % nasal spray 2 spray INTRANASAL QID PRN #60 ml 02/05/21 04/26/21 Rx aerosol ([place] Nasal) pantoprazole 40 mg tablet,delayed 40 mg PO DAILY #30 tab 02/12/21 04/26/21 Rx release pseudoephedrine HCl 120 mg 120 mg PO DAILY 02/18/21 04/26/21 History tablet,extended release fluticasone furoate 100 1 inh INHALATION DAILY #60 ea 03/20/21 04/26/21 Rx mcg-vilanterol 25 mcg/dose inhalation powder (Breo Ellipta) albuterol sulfate 90 mcg/actuation 2 puff INH Q6H PRN #18 g 03/29/21 04/26/21 Rx aerosol inhaler (Ventolin HFA) nintedanib 150 mg capsule 150 mg PO BID #60 cap 04/04/21 04/26/21 Rx meclizine 12.5 mg tablet 12.5 mg PO TID PRN #90 tab 05/08/21 Rx potassium chloride 10 mEq 10 meq PO DAILY #30 tab 05/24/21 Rx tablet,extended release (Klor-Con) fluticasone propionate 50 2 spray INTRANASAL DAILY #15.8 ml 06/18/21 Rx mcg/actuation nasal spray,suspension (Flonase Allergy Relief) furosemide 20 mg tablet (Lasix) 20 mg PO DAILY 30 Days #30 tab 06/19/21 Rx Patient History Medical History Chronic cough Chronic sinusitis Hearing deficit LEFT SIDE MORE History of breast cancer LEFT BREAST>RADIATION Hypokalemia Interstitial lung disease Invasive ductal carcinoma of breast Invasive ductal carcinoma of breast, female IPF (idiopathic pulmonary fibrosis) FOLLOWS WITH DR. NUNEZ IPF (idiopathic pulmonary fibrosis) Liver enzyme elevation IPF THERAPY RECENTLY CHANGED DUE TO LFT ELEVATION; LFT HAVE NOT BEEN RECHECKED SINCE MEDICATION CHANGE. Nocturnal oxygen desaturation O2 2L HS Obesity On home oxygen therapy 2L AT HS AND PRN DAILY IF O2 SATS DROP Pencilling of stools Pneumonia UIP (usual interstitial pneumonitis) HOSPITALIZED WITH BACTERIAL PNUEMONIA 08/16-08/18 Surgical History History of bronchoscopy History of cataract surgery RT/LEFT History of cholecystectomy (~2004) History of colonoscopy (12/31/16) [facility], Dr Delong, small polyp removed, repeat in 5 years recommended History of colonoscopy (01/21/20) Dr. Foley, normal, recheck not recommended due to age History of lung biopsy History of surgery BENIGN DERMOID CYST EXCSION with bilt oopherectomy History of tonsillectomy and adenoidectomy (~1955) Status post left breast lumpectomy (~12/31/17) LEFT PARTIAL BREAST MASTECTOMY WITH LNB= 12/31/17= LMA#4 AT [facility] Family History Mother Family history of diabetes mellitus Sister Family history of diabetes mellitus Family/Other Family history of diabetes mellitus CHILDREN Denies family history of Ovarian cancer Prostate cancer Myocardial infarction Breast cancer Colorectal cancer Social History Smoking Status: Never smoker Second Hand Exposure: Yes ( A CHILD); Hx Alcohol Use: No Hx Substance Use: No Preferred Language: Syriac Communication Ability: Effective Visual Impairment: No Limitations Hearing Ability: Normal Cad Manager Required: No Beliefs That Will Affect Care: None marital status: Current Living Situation: Alone current occupational status: retired Other Information That Helps Us Care for You: No Feels Safe at Home: Yes Safety Concerns: Feels Safe At This Time Dental Care, Regularly: Yes Physical Activity Frequency: Does not Exercise Seatbelt Use: always Assistive Devices: Oxygen - Continuous Review of Systems Review of Systems: All systems reviewed & are unremarkable except as noted in HPI & below Physical Exam Physical Exam: Constitutional: No acute distress HEENT: EOMI, PERRLA Respiratory system: Good air entry bilaterally, [] wheeze, [] rhonchi, [] crackles CVS: S1-S2 positive, no murmurs or gallops Abdomen: Soft, nontender, nondistended, positive bowel sounds x4 Extremities: +2 pulses bilaterally radialis/ dorsalis pedis, no cyanosis, no edema Neuro: Awake alert oriented x3 Psych: Normal mood and affect G/U: Skin: no rashes, warm and dry Lymphatic: no cervical or axillary lymphadenopathy Results & Data Results & Data ([facility]) Vital Signs (Past 12 Hours) Vital Signs Pulse Resp BP Pulse Ox 06/29/21 06:00 63 17 98 06/29/21 05:00 63 15 108/59 L 97 06/29/21 04:00 66 15 98 06/29/21 03:00 57 L 16 122/60 100 06/29/21 02:00 67 25 H 133/66 98 06/29/21 01:00 70 19 113/57 L 99 06/29/21 00:00 64 13 113/57 L 99 06/28/21 23:00 61 15 121/78 99 06/28/21 22:00 57 L 20 122/75 100 06/28/21 21:00 58 L 18 136/69 100 06/28/21 20:00 65 21 119/67 98 Laboratory Results 06/29/21 04:00 06/29/21 04:00 [place] [address] Inpt Consult Level 4 Patient Type New Diagnoses STEMI (ST elevation myocardial infarction) I21.3 Involved coronary artery: unspecified coronary artery IPF (idiopathic pulmonary fibrosis) J84.112 Chronic respiratory failure with hypoxia J96.11 (1) STEMI (ST elevation myocardial infarction) Involved coronary artery: unspecified coronary artery Qualified Code(s): I21.3 - ST elevation (STEMI) myocardial infarction of unspecified site
[2021-06-29] MEDS: METOPROLOL TARTRATE 25 MG TAB PO SCH (08:19)
[2021-06-29] MEDS: ATORVASTATIN 40 MG TAB PO SCH (08:19)
--- NOTE | 2021-06-29 08:27 | Electrocardiogram Report ---
Test Reason : Blood Pressure : / mmHG Vent. Rate : 073 BPM Atrial Rate : 073 BPM P-R Int : 122 ms QRS Dur : 092 ms QT Int : 400 ms P-R-T Axes : 014 -26 -26 degrees QTc Int : 440 ms Normal sinus rhythm Lateral infarct (cited on or before 16-AUG-2019) ACUTE MO / STEMI Abnormal ECG When compared with ECG of 18-FEB-2021 10:49, ST elevation now present in Lateral leads ST now depressed in Inferior leads ST now depressed in Anterior leads T wave inversion more evident in Inferior leads T wave inversion now evident in Anterior leads Confirmed by Haider Baltazar ([id number]) on 06/29/2021 8:26:42 AM Referred By: Confirmed By:Haider Baltazar
--- NOTE | 2021-06-29 08:33 | Electrocardiogram Report ---
Test Reason : Blood Pressure : / mmHG Vent. Rate : 057 BPM Atrial Rate : 057 BPM P-R Int : 154 ms QRS Dur : 090 ms QT Int : 458 ms P-R-T Axes : 016 -17 020 degrees QTc Int : 445 ms Sinus bradycardia with Premature ventricular complexes Possible Lateral infarct (cited on or before 16-AUG-2019) Abnormal ECG When compared with ECG of 28-JUN-2021 10:45, Premature ventricular complexes are now Present ST no longer depressed in Inferior leads ST no longer depressed in Anterior leads Nonspecific T wave abnormality has replaced inverted T waves in Inferior leads T wave inversion no longer evident in Anterior leads ST no longer elevated in Lateral leads Confirmed by Haider Baltazar ([id number]) on 06/29/2021 8:33:22 AM Referred By: REFERRED SELF Confirmed By:Haider Baltazar
[2021-06-29] MEDS ORDERED: LOSARTAN POTASSIUM 25 MG TAB PO SCH (09:00)
[2021-06-29] MEDS ORDERED: FLUTICASONE PROPIONATE NA SPR 16 GM BTL SCH (09:00)
[2021-06-29] MEDS ORDERED: CEROVITE ADV FORMULA TAB PO SCH (09:00)
[2021-06-29] MEDS ORDERED: CLOPIDOGREL BISULFATE 75 MG TAB PO SCH (09:00)
[2021-06-29] MEDS ORDERED: ASPIRIN 81 MG ECTAB PO SCH ×2 (09:00)
[2021-06-29] MEDS ORDERED: lisinopril 5 MG TAB PO SCH (09:00)
[2021-06-29] MEDS ORDERED: FLUTICASONE/VILANTEROL 100/25MCG 14 PUFFS/INHALER INH SCH (09:00)
[2021-06-29] MEDS ORDERED: PANTOprazole 40 MG TAB PO SCH (09:00)
[2021-06-29] MEDS ORDERED: POTASSIUM CHLORIDE 10 MEQ TABCR PO SCH (09:00)
[2021-06-29] MEDS ORDERED: ATORVASTATIN 40 MG TAB PO SCH (09:00)
[2021-06-29] MEDS ORDERED: CLOPIDOGREL BISULFATE 75 MG TAB PO ONE (09:45)
--- NOTE | 2021-06-29 10:30 | Electrocardiogram Report ---
Test Reason : Blood Pressure : / mmHG Vent. Rate : 062 BPM Atrial Rate : 062 BPM P-R Int : 150 ms QRS Dur : 090 ms QT Int : 428 ms P-R-T Axes : 003 -09 122 degrees QTc Int : 434 ms Poor data quality, interpretation may be adversely affected Normal sinus rhythm T wave abnormality, consider lateral ischemia Abnormal ECG When compared with ECG of 28-JUN-2021 13:21, (unconfirmed) Fusion complexes are no longer Present Premature ventricular complexes are no longer Present Nonspecific T wave abnormality no longer evident in Inferior leads T wave inversion now evident in Lateral leads Confirmed by Harvey Del Real ([id number]) on 06/29/2021 10:30:23 AM Referred By: REFERRED SELF Confirmed By:Harvey Del Real
--- NOTE | 2021-06-29 10:35 | Critical Care Consultation ---
Date of Consultation June 29, 2021 Assessment & Plan (1) STEMI (ST elevation myocardial infarction): (2) IPF (idiopathic pulmonary fibrosis): (3) Chronic cough: (4) Chronic respiratory failure with hypoxia: (5) Chronic obstructive pulmonary disease, unspecified: (6) Invasive ductal carcinoma of breast, female: (7) Hypokalemia: Attending: Dr. Rahman Impression: 75-year-old female with a history of pulmonary disease as well as hypokalemia. She presented with chest pain and was found to have ST elevated OK. She had EKG changes that required hardware. She was taken to cardiac catheterization lab and received 2 drug-eluting stents to the ostial diagonal and 1 drug-eluting stent to the LAD. She was transferred to the ICU in room 102 for overnight observation. She was started on clopidogrel, aspirin 81 mg, metoprolol tartrate, losartan, and a heparin drip. Reason Critically Ill: Non-ST elevated OK Neuro - [facility] ICU: Alert and oriented x4 Cardiac - Status post cardiac catheterization. POD #1 Heparin drip has been stopped Patient with 2 drug-eluting stents to the ostial diagonal and 1 drug-eluting stent to the LAD Started on Plavix and aspirin Continue metoprolol and losartan No arrhythmias on monitoring Occasional ectopy with auscultation No further chest pain Respiratory - No acute distress. At baseline with home oxygen Patient with IPF. Most recent pulmonary function testing performed 01/29/2021 with no obstruction but moderate restrictive lung disease Continue outpatient inhaler regimen with Brio Ellipta Continue supplemental oxygen to maintain SaO2 greater than 90% GI - Patient with history of GERD. Continue PPI RENAL/LYTES - BUN 14, creatinine 0.78 Oral hydration adequate No indication at this time for IVF History of hypokalemia. Continue potassium chloride 10 mEq p.o. daily Electrolytes currently balanced - No acute issues Would follow ins and outs while in inpatient ENDO - No history of diabetes mellitus or hypothyroidism HEME - No acute blood loss with cardiac catheterization Hemoglobin and hematocrit currently within normal limits ID - No indication of acute illness or infection No elevation of white blood cells LINES/IV ACCESS - PIV No indication for central line access at this time No indication for arterial line access at this time DVT PROPHYLAXIS - Chemical prophylaxis per cardiology Increase ambulation as tolerated per cardiology No asymmetrical edema of lower extremities. Patient appears to be stable. Can downgrade from ICU to telemetry if cleared by interventional cardiology CCT: 45 minutes independent of any procedures Thank you for including us in the care of this patient. Please refer to Dr. Rahman's addendum for further recommendations. Supervising Physician Co-Signing Physician Notes I saw and evaluated the patient with Alexis Suero, and agree with findings and plan as documented in the note. Patient seen and examined at bedside. No acute distress, no dressings overnight Patient is s/p cardiac stent placement. At the time of examination patient denies any chest pain. No headache, no nausea, no vomiting Patient had her breakfast. She is on chronic oxygen for with her underlying IPF and is taking Ofev twice daily 150 mg Physical exam: PERRLA, EOMI Decreased air entry bilaterally, positive Velcro-like crackles bilaterally, no wheeze, no rhonchi S1-S2 positive, no murmurs +2 pulses bilaterally, no cyanosis, no edema She was saturating 96% on 2 L nasal cannula at rest. Continue with dual antiplatelet therapy which includes Plavix, continue with statin, ARB and metoprolol Please note the above document was generated using voice recognition software. It may contain grammatical, syntax or spelling errors.Any formal questions or concerns about the content, text or information contained within the body of t his dictation should be directly addressed to the provider for clarification. History of Present Illness Reason for Consultation: STEMI with occlusion of ostial diagonal as well as LAD requiring PCI with drug- eluting stent placement Attending Physician: Dimas Talley History of Present Illness Attending: Dr. Rahman This is a 75-year-old female with a history of idiopathic pulmonary fibrosis on chronic supplemental oxygen, breast cancer, chronic dyspnea, COPD, nocturnal hypoxemia, lichen simplex chronicus, GERD, chronic cough. The patient presented emergency department on 06/28/2021 as a result of sudden awakening at night with breathlessness followed by acute substernal chest pain. The pain was reported to radiate down both arms. She also had associated diaphoresis and nausea. EKG presented ST elevation in leads I, aVL and ST depression in leads III and aVF. A heart alert was activated. Patient was taken to the cardiac catheterization lab and found to have 99% occlusion of the ostial diagonal has 75% severe occlusion of the LAD. 2 drug-eluting stents were placed to the ostial diagonals and 1 drug-eluting stent to the LAD. Patient did well during the procedure and was transferred to the intensive care unit in room 102 for observation. She was placed on clopidogrel as well as aspirin 81 mg daily. She was also started on a heparin drip. Cardiology initiated lisinopril 5 mg, losartan 25 mg, and metoprolol tartrate 12.5 mg p.o. 3 times daily. Electrolytes were balanced. Patient's troponin was initially not elevated but then spiked to 9.27 and is trending downward. Is currently 8.49. Cardiology continues to actively follow her. Patient reports that when she awoke and had the chest pain. She recognized that as possibly being a heart attack as her son had a heart attack last year. She had aspirin at home and took 81 mg. She then called 911 and researched the doses for aspirin to add additional 3 pills. Patient currently reports no chest pain. She has no pain at the incision site from the catheterization. She denies any fever or chills. She has no shortness of breath. She is on her baseline dose of home oxygen. She has no acute complaints whatsoever. Vaccination status: Moderna vaccination 08/03/2020, 09/03/2020. Influenza vaccination 04/26/2021. Pneumococcal vaccination 09/30/2016 and 10/01/2017 Allergies Allergy/AdvReac Type Severity Reaction Status Date / Time No Known Allergies Allergy Verified 04/26/21 13:37 Home Medications Medication Instructions Recorded Confirmed Type letrozole 2.5 mg tablet 2.5 mg PO HS 05/08/18 04/26/21 History vitamins A,C,M-vjji-qxrvhz 7,160 1 tab PO BID 09/15/19 04/26/21 History unit-113 mg-100 unit tablet (PreserVision AREDS) ipratropium 0.5 mg-albuterol 3 mg 3 ml INH QID PRN #180 ml 11/16/20 04/26/21 Rx (2.5 mg base)/3 mL nebulization soln chlorpheniramine maleate 4 mg 4 mg PO Q12H PRN #40 tab 01/03/21 03/28/21 Rx tablet nebulizer accessories #1 ea 01/04/21 04/26/21 Rx nebulizers #1 ea 01/04/21 04/26/21 Rx sodium chloride 0.65 % nasal spray 2 spray INTRANASAL QID PRN #60 ml 02/05/21 04/26/21 Rx aerosol ([place] Nasal) pantoprazole 40 mg tablet,delayed 40 mg PO DAILY #30 tab 02/12/21 04/26/21 Rx release pseudoephedrine HCl 120 mg 120 mg PO DAILY 02/18/21 04/26/21 History tablet,extended release fluticasone furoate 100 1 inh INHALATION DAILY #60 ea 03/20/21 04/26/21 Rx mcg-vilanterol 25 mcg/dose inhalation powder (Breo Ellipta) albuterol sulfate 90 mcg/actuation 2 puff INH Q6H PRN #18 g 03/29/21 04/26/21 Rx aerosol inhaler (Ventolin HFA) nintedanib 150 mg capsule 150 mg PO BID #60 cap 04/04/21 04/26/21 Rx meclizine 12.5 mg tablet 12.5 mg PO TID PRN #90 tab 05/08/21 Rx potassium chloride 10 mEq 10 meq PO DAILY #30 tab 05/24/21 Rx tablet,extended release (Klor-Con) fluticasone propionate 50 2 spray INTRANASAL DAILY #15.8 ml 06/18/21 Rx mcg/actuation nasal spray,suspension (Flonase Allergy Relief) furosemide 20 mg tablet (Lasix) 20 mg PO DAILY 30 Days #30 tab 06/19/21 Rx Oxygen Home #1 ea 06/29/21 Rx aspirin 81 mg tablet,delayed 81 mg PO QAM #90 tab 06/29/21 Rx release atorvastatin 80 mg tablet (Lipitor) 80 mg PO DAILY #30 tab 06/29/21 Rx clopidogrel 75 mg tablet 75 mg PO QAM #30 tab 06/29/21 Rx losartan 25 mg tablet 25 mg PO QAM #30 tab 06/29/21 Rx metoprolol tartrate 25 mg tablet 12.5 mg PO BID #60 tab 06/29/21 Rx nitroglycerin 0.4 mg sublingual 0.4 mg SUBLINGUAL Q5M PRN #1 btl 06/29/21 Rx tablet (Nitrostat) Patient History Medical History Chronic cough Chronic sinusitis Hearing deficit LEFT SIDE MORE History of breast cancer LEFT BREAST>RADIATION Hypokalemia Interstitial lung disease Invasive ductal carcinoma of breast Invasive ductal carcinoma of breast, female IPF (idiopathic pulmonary fibrosis) FOLLOWS WITH DR. NUNEZ IPF (idiopathic pulmonary fibrosis) Liver enzyme elevation IPF THERAPY RECENTLY CHANGED DUE TO LFT ELEVATION; LFT HAVE NOT BEEN RECHECKED SINCE MEDICATION CHANGE. Nocturnal oxygen desaturation O2 2L HS Obesity On home oxygen therapy 2L AT HS AND PRN DAILY IF O2 SATS DROP Pencilling of stools Pneumonia UIP (usual interstitial pneumonitis) HOSPITALIZED WITH BACTERIAL PNUEMONIA 08/16-08/18 Surgical History History of bronchoscopy History of cataract surgery RT/LEFT History of cholecystectomy (~2004) History of colonoscopy (12/31/16) [facility], Dr Delong, small polyp removed, repeat in 5 years recommended History of colonoscopy (01/21/20) Dr. Foley, normal, recheck not recommended due to age History of lung biopsy History of surgery BENIGN DERMOID CYST EXCSION with bilt oopherectomy History of tonsillectomy and adenoidectomy (~1954) Status post left breast lumpectomy (~12/31/17) LEFT PARTIAL BREAST MASTECTOMY WITH LNB= 12/31/17= LMA#4 AT [facility] Family History Mother Family history of diabetes mellitus Sister Family history of diabetes mellitus Family/Other Family history of diabetes mellitus CHILDREN Denies family history of Ovarian cancer Prostate cancer Myocardial infarction Breast cancer Colorectal cancer Social History Smoking Status: Never smoker Second Hand Exposure: Yes ( A CHILD); Hx Alcohol Use: No Hx Substance Use: No Preferred Language: Citizen Of [place] Communication Ability: Effective Visual Impairment: No Limitations 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: No Beliefs That Will Affect Care: None marital status: Current Living Situation: Alone current occupational status: retired Other Information That Helps Us Care for You: No Feels Safe at Home: Yes Safety Concerns: Feels Safe At This Time Dental Care, Regularly: Yes Physical Activity Frequency: Does not Exercise Seatbelt Use: always Assistive Devices: Oxygen - at Night Review of Systems Review of Systems: All systems reviewed & are unremarkable except as noted in Subjective Physical Exam Physical Exam: GENERAL : No acute distress EYES: No icterus, gaze conjugate NOSE: No evidence of epistaxis MOUTH: No lesions or candidiasis NECK: Supple LUNGS: CTA B/L, no wheezes, rales or rhonchi HEART: Regular, rate controlled ABDOMEN: Soft, NT, ND, BS Present EXTREMITIES: No LE edema, pedal pulses intact NEURO: A&OX3 Results & Data Results & Data ([facility]) Vital Signs (Past 12 Hours) Vital Signs Temp Pulse Pulse Resp BP BP Pulse Ox 06/29/21 08:00 36.5 C 65 67 18 114/58 L 98 06/29/21 06:00 63 17 98 06/29/21 05:00 63 15 108/59 L 97 06/29/21 04:00 66 15 98 06/29/21 03:00 57 L 16 122/60 100 06/29/21 02:00 67 25 H 133/66 98 06/29/21 01:00 70 19 113/57 L 99 06/29/21 00:00 64 13 113/57 L 99 06/28/21 23:00 61 15 121/78 99 Laboratory Results 06/29/21 04:00 06/29/21 04:00 06/28/21 06/28/21 06/28/21 10:43 15:05 15:05 Troponin I 0.043 4.890 H* Cancelled 06/28/21 06/29/21 19:53 04:00 Troponin I 9.270 H* 8.490 H* Laboratory Tests 06/28/21 10:44 SARS-CoV-2, RNA, NAAT NEGATIVE Diagnostic Findings Chest X-Ray 06/28/21 10:39 XR chest 1V portable CLINICAL HISTORY: Atypical chest pain. COMPARISON STUDY: Chest CT December 28, 2020. Chest radiograph March 28, 2021. FINDINGS: Lower lung volume loss is again noted. There is no pneumothorax or pleural effusion. Cardiomediastinal silhouette is stable. Diffuse interstitial thickening is similar to prior exam. This favors interstitial lung disease. No superimposed consolidation is identified. IMPRESSION: No significant change in interstitial thickening suggestive of interstitial lung disease. No superimposed consolidation is identified. ACT 112: Negative or not required by law. Electronically signed by: Jaron Maloney M.D. 06/28/2021 11:12 AM Echocardiogram performed 06/28/2021: 1. Normal LV size, mild concentric LVH 2. LVEF 50 to 55%. Hypokinetic mid lateral wall. 3. RV not well visualized. Grossly normal RV size and function 4. No significant valvular pathology 5. No pulmonary hypertension 6. Compared with prior study on 04/02/2021, mid lateral wall hypokinesis is new. ECG Indication: chest pain Additional Comments: Vent. rate 62 BPM AK interval 150 ms QRS duration 90 ms QT/QTc 428/434 ms P-R-T axes 3 -9 122 Poor data quality, interpretation may be adversely affected Normal sinus rhythm T wave abnormality, consider lateral ischemia Abnormal ECG When compared with ECG of 28-JUN-2021 13:21, (unconfirmed) Fusion complexes are no longer Present Premature ventricular complexes are no longer Present Nonspecific T wave abnormality no longer evident in Inferior leads T wave inversion now evident in Lateral leads Confirmed by Harvey Del Real ([id number]) on 06/29/2021 10:30:23 AM 25mm/s 10mm/mV 150Hz 9.0.9 12SL 241 HD BRETT: 2 Referred by: REFERRED SELF Confirmed By: Harvey Del Real Coding Level of Care Code Critical Care 1st 30-74 mins Diagnoses STEMI (ST elevation myocardial infarction) I21.3 Involved coronary artery: unspecified coronary artery IPF (idiopathic pulmonary fibrosis) J84.112 Chronic cough R05 Chronic respiratory failure with hypoxia J96.11 Chronic obstructive pulmonary disease, unspecified J44.9 COPD type: unspecified COPD Invasive ductal carcinoma of breast, female C50.919 Hypokalemia E87.6 Time Spent (min) 45 (1) STEMI (ST elevation myocardial infarction) Involved coronary artery: unspecified coronary artery Qualified Code(s): I21.3 - ST elevation (STEMI) myocardial infarction of unspecified site (2) Chronic obstructive pulmonary disease, unspecified COPD type: unspecified COPD Qualified Code(s): J44.9 - Chronic obstructive pulmonary disease, unspecified
[2021-06-29 11:39] VITALS: BP 101/69; PULSE 63; TEMP 97.3; O2SAT 94
--- NOTE | 2021-06-29 12:07 | Cardiology Progress Note ---
Date of Service June 29, 2021 Assessment & Plan (1) STEMI (ST elevation myocardial infarction): Plan: - post bifurcation PCI to diagonal/LAD 2. Preserved LV function 3. IPF Patient looks well. Chest pain free. Troponin peaked. Hemodynamically and electrically stable. No access site complications. Stable post procedure labs. From a cardiac standpoint OK with discharge today. -- Home on DAPT with ASA/Clopidogrel -- Home on metorpolol 25 bid, losartan and Atorvastatin. Follow-up with me in 1-2 weeks. Admission and Anticipated Discharge Date Admission Date: June 28, 2021 Subjective Feeling well today. No chest pain. Did have a nose bleed overnight. Tele reviewed -- no events. Review of Systems Review of Systems: All systems reviewed & are unremarkable except as noted in HPI & below Physical Exam Physical Exam: General: Comfortable HEENT: Sclerae anicteric, Mask in place Lungs: crackles bilaterally, left > right Cardiac: Regular rate and rhythm, no murmurs. Vascular: 2+ RT radial. No ecchymosis or hematoma. Abdomen: Soft, nontender Extremities: Well perfused, no peripheral edema Neuro: Nonfocal Psych: Alert orient x3, normal affect and mood Results & Data ([facility]) Vital Signs (Past 12 Hours) Vital Signs Temp Pulse Pulse Resp BP BP Pulse Ox 06/29/21 11:03 97.3 F L 63 18 101/69 94 06/29/21 08:00 97.7 F 65 67 18 114/58 L 98 06/29/21 06:00 63 17 98 06/29/21 05:00 63 15 108/59 L 97 06/29/21 04:00 66 15 98 06/29/21 03:00 57 L 16 122/60 100 06/29/21 02:00 67 25 H 133/66 98 06/29/21 01:00 70 19 113/57 L 99 PG Care Time/CCT Total # of Minutes Spent Total Time Spent with Patient: Total time spent is greater than 50% in coordination of care (as documented) at patient's floor/unit and/or counseling patient: Coding Level of Care Code 66628 Subseq Hosp Care Lvl 3 Diagnoses STEMI (ST elevation myocardial infarction) I21.3 Involved coronary artery: unspecified coronary artery (1) STEMI (ST elevation myocardial infarction) Involved coronary artery: unspecified coronary artery Qualified Code(s): I21.3 - ST elevation (STEMI) myocardial infarction of unspecified site
--- NOTE | 2021-06-29 14:10 | Discharge Summary ---
Date of Service date of admission - June 28, 2021 date of discharge - June 29, 2021 Admission HPI Per Admitting Provider Mrs. Molina is a 75 year old female with a history of Idiopathic Pulmonary Fibrosis (on chronic supplemental O2), Breast Cancer, Chronic Dyspnea, COPD, Noc turnal Hypoxemia, and Lichen Simplex Chronicus who presented to [facility] ER via EMS for acute onset dyspnea that awoke her from sleep at 0845 followed by acute substernal chest pain that radiated down both arms with associated diaphoresis and nausea. Her EKG en route demonstrated ST elevation in leads I and aVL with ST depressions in leads III and aVF. A Heart Alert was activated. Her prior EKG's were reviewed and today's EKG changes are new. Patient took 4 Baby Aspirin 81 mg. She was given SL Nitroglycerin by EMS. She denies any prior cardiac history or prior cardiac events. Patient has n oticed increased MARIN over the past week with her usual activities -- but she attributed this to her pulmonary fibrosis. She has not experienced any exertional chest pain or arm leading up to her infarct today. Emergent Cardiac Catheterization demonstrated a 99%+ ostial to proximal D1 stenosis which was stented with 2 drug eluting stents. There was also significant proximal to mid LAD stenosis that was stented with a drug eluting stent. Arterial access via the right radial artery. Patient tolerated this procedure without complications. Her Sxfd-ye-[id number] time was 54 minutes. Principal Diagnosis STEMI s/p stents x 3 Discharge Exam Gen: NAD, pleasant Neck: no JVD Heart: RRR, s1 s2, no murmur Lungs: bibasilar dry rales Abd: soft, NT, ND, BS+, no HSM Ext: no edema, pulses 2+ b/l Vasc: right radial artery w/o hematoma Discharge Data Allergies Allergy/AdvReac Type Severity Reaction Status Date / Time No Known Allergies Allergy Verified 04/26/21 13:37 Consultations 06/28/21 11:37 ED Decision to Admit Stat 06/28/21 12:45 Consult Cardiac Rehabilitation Routine 06/28/21 18:12 Consult Nurse Orthopaedic Routine Procedures Performed Operation Date: 06/28/21 11:00 Actual Procedures p Cath, Left with Cors and Vent - Dewey Carrillo MD s IVUS Coronary Single Vessel - Christopher R. Carrillo, MD s Cineradiography w/Routine Exam - Dewey Carrillo MD p Aspiration/PCI w/YAMILA for Stemi - Dewey Carrillo MD Findings: LM -normal caliber, no significant disease LAD -medium caliber vessel, diffuse proximal to mid disease up to 60% angiographically, remainder of vessel without significant disease, tapers to apex. Medium D1 with acute 99% stenosis and VERNELL II flow. Circumflex -dominant, large caliber, no significant disease. Large OM1, PDA without disease. RCA -nondominant, no significant disease Summary: 1. Lateral STEMI/99% acute ostial 1st diagonal stenosis. 2. Severe (up to 75% on IVUS) proximal to mid diffuse LAD disease at bifurcation with 1st diagonal. 3. Successful PCI of 1st diagonal with 2 overlapping drug-eluting stents (2.25 x 15, 2.25 x 12 mm Xience). 4. Successful PCI of proximal to mid LAD with single drug-eluting stent (2.75 x 23 mm Xience; postdilated with 3.25 NC). Ordered Studies 06/28/21 10:36 CL Cath Imgs for PACS use only Stat 06/28/21 12:44 CL IVUS Coronary Single Vessel Routine Echocardiogram - * EF 50-55% * mild LVH * mid lateral wall hypokinesis * normal RV size and function * no pulmonary HTN Diabetes Follow up Diabetes Follow-up Needed for Newly Diagnosed Diabetes Hospital Course (1) STEMI (ST elevation myocardial infarction): Patient was taken emergently from the ER to the test lab technician by Dr Dewey Carrillo. Cardiac catheterization revealed a 99% acute ostial 1st diagonal stenotic lesion - the culprit for her STEMI. Dr Carrillo performed PCI with deployment of 2 drug-eluting stents. Additionally, proximal to mid diffuse LAD disease at the bifurcation with 1st diagonal was found (75% on IVUS) and this lesion underwent PCI with 1 drug- eluting stent. Post-cath she was admitted to the ICU where she remained hemodynamically stable. During her stay she had no additional episodes of chest pain. Peak troponin was 9.2. She was loaded with plavix, then continued on plavix 75mg once daily, along with 81mg of aspirin, 80mg of lipitor, 12.5mg twice daily of metoprolol, and losartan 25mg daily. Echocardiogram showed low-normal EF of 50-55% with lateral hypokinesis consistent with her acute OR. Lipid profile showed LDL of 112 and HDL of 61. She will follow-up with Dr Carrillo within 2 weeks of discharge. (2) IPF (idiopathic pulmonary fibrosis): Stable throughout her stay. Uses nocturnal NC O2 and prn during the daytime. O2 sats were stable while here. COVID testing was negative. Continue nintedanib as previous. (3) Chronic respiratory failure with hypoxia: 2nd pulmonary fibrosis (4) Chronic obstructive pulmonary disease, unspecified: (5) Invasive ductal carcinoma of breast, female: history of. Continue letrozole. (6) Hypokalemia: K 3.2 upon presentation; 4.1 at discharge. (7) Diabetes type 2, controlled: HbA1C 6.6%. Discussed this with patient before discharge. Follow-up with PCP for surveillance. Total Time Total Time Spent Total Time Spent (In Minutes): 40 Discharge Plan Discharge Items Patient Disposition: Home - Self-Care Reason For Visit: Acute myocardial infarction (heart attack) Discharge Diagnosis: Acute myocardial infarction (heart attack) - heart catheterization by Dr Dewey Carrillo with 3 stents placed Type 2 diabetes Activity: Per Instructions section Sexual Activity: Wait until after follow-up appointment Exercise/Sports: Wait until after follow-up appointment Driving/Machine Use: Resume 3 days after discharge Non-emergency contact: Primary Care Provider and Multi Purpose Machine Operator Call non-emergency contact if: you have any medication questions, your symptoms worsen, your pain is not controlled, your pain is worsening, your pain is unusual for you, your pain is concerning for you and you have a fever Follow-up/Referrals: Luis Carlos Carrillo MD [Physician] - (2 weeks ) Alona Doan MD [Physician] - (within 1 week ) Diet: Carb Consistent or DM2 and Heart Healthy Addtl Attending Provider Instructions: Mrs Molina, You were hospitalized at [facility] due to a heart attack. Dr Dewey Carrillo, [facility], took you for heart catheterization and placed 3 stents across the blocked artery. Following your heart catheterization you were started on various heart medications including metoprolol, losartan, lipitor cholesterol medication, aspirin, and plavix (clopidogrel). Your echocardiogram showed good heart function despite the heart attack. Your heart telemetry monitoring was normal as well. Recommendations - 1. Medications for your heart - * metoprolol 12.5mg twice daily * losartan 25mg once daily * atorvastatin 80mg once daily * clopidogrel 75mg once daily * aspirin 81mg once daily (purchase [id number]) * nitroglycerin tablets -- if you ever experience recurrent chest pain, chest tightness, shoulder or neck pain, shortness of breath, or any symptoms that remind you of your heart attack you may use the nitro tablets * place under the tongue, and you can repeat every 5 minutes for a total of 3 tablets in a 15-minute period if the chest pain continues * if you have to use nitro tablets please seek medical attention * keep this bottle with you at all times 2. heart catheterization instructions - see separate section 3. diabetes - your hemoglobin a1c test is now 6.6%. This means that you are at the very beginning of full-blown, type 2 diabetes. This can be controlled with diet. You do not need to take medication at this time. At your next office visit with your family doctor please obtain a glucometer which will allow you to check your blood sugars at home. Your family doctor can monitor your mild diabetes for you. 4. continue your oxygen as previous 5. follow-up - see separate section 6. finally, please STOP your pseudoephedrine decongestant tablets. These are typically not recommended in people with heart disease. Return to [facility] if - * you have to use nitroglycerin tablets * you have any concerns about your heart catheterization site on your right wrist * you have worsening shortness of breath or chest pains * any other concerns It was our pleasure to care for you! Happy holidays, Dr Talley Addtl Insurance Administrator Provider Instructions: ACTIVITY RECOMMENDATIONS following your heart catheterization: It is common to feel weak and fatigue for a few days. * Do not drive or operate any motorized equipment for the next three days. * Limit stair usage (2 or 3 trips a day only) for the next three days. * Do not lift anything heavier than 10 pounds for the next three days - especially with your right hand/arm. * You may shower the day after your procedure, but do not immerse the right wrist for three days. Thus, no cleaning dishes or tub baths. Cleanse the site gently with soap and water. SPECIAL CARE INSTRUCTIONS: * You may replace the pressure dressing or band-aid the morning after the procedure. * After your procedure, it is normal to have a small bruise or small lump at the site. Examine your site daily for any change in the bruise or lump, redness, swelling, drainage or numbness. Notify your doctor if any change. BLEEDING: * If there is a small amount of bleeding at the site, lie down and apply firm pressure with a clean cloth for ten minutes. When the bleeding stops, lie quietly keeping the procedure limb straight for six hours. Notify your doctor as soon as possible. * If the bleeding does not stop after ten minutes or if there is a large amount of bleeding or spurting, call 911 immediately. Continue to lie down and hold firm pressure until help arrives. SKIN IRRITATION: * You may experience some redness and/or swelling in the area where radiation was administered. If any skin irritation occurs, please contact your family physician. Pending Studies at Discharge: No Stand-Alone Forms: My [facility] Wearables, Smoking Cessation Medications and DC Order Prescriptions: New clopidogrel 75 mg Tablet 75 mg PO QAM Qty: 30 RF: 11 losartan 25 mg Tablet 25 mg PO QAM Qty: 30 RF: 5 metoprolol tartrate 25 mg Tablet 12.5 mg PO BID Qty: 60 RF: 5 nitroglycerin [Nitrostat] 0.4 mg Tablet, Sublingual 0.4 mg sublingual Q5M PRN (Reason: chest pain) Qty: 1 RF: 0 aspirin 81 mg Tablet,Delayed Release (Dr/Ec) 81 mg PO QAM Qty: 90 RF: 3 atorvastatin [Lipitor] 80 mg tablet 80 mg PO DAILY Qty: 30 RF: 11 (DME) Oxygen Home Liters Per Minute See Rx Instructions .ROUTE .MEDSUPPLY Qty: 1 RF: 0 Continued letrozole 2.5 mg tablet 2.5 mg PO HS RF: 0 ipratropium-albuterol 0.5 mg-3 mg(2.5 mg base)/3 mL solution for nebulization 3 ml INH QID PRN (Reason: COPD) Qty: 180 RF: 5 Breo Ellipta 100-25 mcg/dose blister with device 1 inh inhalation DAILY Qty: 60 RF: 5 albuterol sulfate [Ventolin HFA] 90 mcg/actuation HFA aerosol inhaler 2 puff INH Q6H PRN (Reason: Shortness Of Breath Or Wheezing) Qty: 18 RF: 5 meclizine 12.5 mg tablet 12.5 mg PO TID PRN (Reason: Vertigo) Qty: 90 RF: 1 potassium chloride [Klor-Con 10] 10 mEq tablet extended release 10 meq PO DAILY Qty: 30 RF: 5 fluticasone propionate [Flonase Allergy Relief] 50 mcg/actuation spray,suspension 2 spray intranasal DAILY Qty: 15.8 RF: 3 furosemide [Lasix] 20 mg tablet 20 mg PO DAILY 30 Days Qty: 30 RF: 3 chlorpheniramine maleate 4 mg tablet 4 mg PO Q12H PRN (Reason: itching) Qty: 40 RF: 0 (DME) nebulizer accessories Kit See Rx Instructions .ROUTE .MEDSUPPLY Qty: 1 RF: 0 (DME) nebulizers Misc See Rx Instructions .ROUTE .MEDSUPPLY Qty: 1 RF: 0 nintedanib 150 mg capsule 150 mg PO BID Qty: 60 RF: 2 sodium chloride [[place] Nasal] 0.65 % aerosol,spray 2 spray intranasal QID PRN (Reason: dry nasal passages) Qty: 60 RF: 0 PreserVision AREDS [id number] Tablet 1 tab PO BID RF: 0 Discontinued pseudoephedrine HCl 120 mg tablet extended release 120 mg PO DAILY RF: 0 Discharge Orders: Discharge Order (Routine); Ordered 06/29/21 Ordered By: Dimas Minaya/Other Patient Handouts: A1C, 5 Steps for Eating Healthier, CAD, Exercise: Why Fitness Matters, Type 2 Diabetes Admission Data Admit Date/Time: 06/28/21 11:44 Attending Provider: Dimas Talley Admit Provider: Dimas Yu Primary Care Provider: Nii Knox III Other Providers: Dimas Yu ; Alena Rahman Other Interventions: Discharge Summary Assessment (RN) Last Done: 06/29/21 14:47 Coding Level of Care Code D/C DAY MANAGEMENT >30 MINS Diagnoses STEMI (ST elevation myocardial infarction) I21.3 Involved coronary artery: unspecified coronary artery IPF (idiopathic pulmonary fibrosis) J84.112 Chronic respiratory failure with hypoxia J96.11 Chronic obstructive pulmonary disease, unspecified J44.9 COPD type: unspecified COPD Invasive ductal carcinoma of breast, female C50.919 Hypokalemia E87.6 Diabetes type 2, controlled E11.9
== END 2021-06-29 15:28 | disposition home or self-care (01) | DRG 247 ==
LOC: ED 10:40 → CC 11:02 → 1E 11:44 → SUATTDRO 11:44